=== PATIENT | male | born 1940 | race Caucasian/White ===

== ENCOUNTER 2016-11-19 12:30 | Inpatient (IN) | payer OTHER, BC ==
--- NOTE | 2016-11-19 12:57 | PDOC ---
History of Present Illness - General Chief Complaint: Pain Stated Complaint: ABD PAIN Time Seen by Provider: 11/19/16 12:56 History Source: Patient Exam Limitations: No Limitations - History of Present Illness Travel History: No Initial Comments: 11/19/16 13:37 Patient is a 76 year old male with PMH of SVT s/p ablation, COPD, Emphysema, Hypothyroidism, HLD who presents to ED with left-sided abdominal pain since Sunday. Patient states he has had a cold for 1 week and has been coughing yellow sputum. He was started on Levaquin by his PCP but switched to Amoxicillin when he started to have abdominal pain after starting the levaquin. He states the pain was originally diffuse and intermittent but has radiated to his LLQ and is now constant and more severe. He has a history of an inguinal hernia containing portions of colon w/o signs of bowel obstruction (last imaging June 2016). He reports complete loss of appetite and no bowel movements since Sunday. Denies fever, chills, nausea, vomiting. Past History - Travel Traveled outside of the country in the last 30 days: No Close contact w/someone who was outside of country & ill: No - Past Medical History Allergies/Adverse Reactions: Allergies Allergy/AdvReac Type Severity Reaction Status Date / Time No Known Allergies Allergy Verified 11/19/16 12:42 Home Medications: Ambulatory Orders Levothyroxine [Synthroid -] 25 mcg PO DAILY 02/14/15 Simvastatin [Zocor -] 40 mg PO HS 02/14/15 Tiotropium [place] [Spiriva] 1 inh PO DAILY 02/14/15 Anemia: No Asthma: No Cancer: No Cardiac Disorders: No CVA: No COPD: Yes (COPD) CHF: No Dementia: No Diabetes: No GI Disorders: No Disorders: No HTN: No Hypercholesterolemia: Yes Liver Disease: No Suicide Attempt (Hx): No Seizures: No Thyroid Disease: Yes (HYPO) - Surgical History Abdominal Surgery: No Appendectomy: No Cardiac Surgery: Yes (SVT Ablation) Cholecystectomy: No Lung Surgery: No Neurologic Surgery: No Orthopedic Surgery: No - Psycho/Social/Smoking Cessation Hx Anxiety: No Suicidal Ideation: No Smoking Status: No Smoking History: Former smoker Years of Tobacco Use: 40 Have you smoked in the past 12 months: No Number of Cigarettes Smoked Daily: 20 If you are a former smoker, when did you quit?: 15 YRS AGO Hx Alcohol Use: No Drug/Substance Use Hx: No Substance Use Type: None Hx Substance Use Treatment: No Abd/GI Specific PMHX - Complaint Specific PMHX Other History: inguinal hernia Review of Systems - Review of Systems Able to Perform ROS?: Yes Is the patient limited Bahamian proficient: No Constitutional: Yes: Loss of Appetite, Weakness Respiratory: Yes: Cough, Productive cough ABD/GI: Yes: Constipated, Poor Appetite, Poor Fluid Intake : Yes: Testicular Swelling *Physical Exam - Vital Signs Last Vital Signs Temp Pulse Resp BP Pulse Ox 97.6 F 100 H 20 128/92 95 11/19/16 12:40 11/19/16 12:40 11/19/16 12:40 11/19/16 12:40 11/19/16 12:40 - Physical Exam General Appearance: Yes: Appropriately Dressed, Apparent Distress HEENT: positive: EOMI, EMILIANA, Normal ENT Inspection Neck: positive: Trachea midline, Normal Thyroid Respiratory/Chest: positive: Lungs Clear, Normal Breath Sounds Cardiovascular: positive: Regular Rhythm, Regular Rate Gastrointestinal/Abdominal: positive: Tender, Decreased BS, Distended, Hernia ( inguinal hernia on left side, extremely tender to palpation) Male Genitalia: positive: testicular tenderness, testicular mass (inguinal hernia ) Musculoskeletal: positive: Normal Inspection Extremity: positive: Normal Inspection, Normal Range of Motion Neurologic: 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 Patient sent for Abdomen & Pelvis CT. Also ordered CBC, CMP, Lactic acid, Blood Cx, UA, CXR. Consulted with surgery & will keep in contact once imaging report returns. 11/19/16 15:46 CT Scan Abdomen/Pelvis: Left inguinal hernia containing a dilated small bowel loop with resultant proximal small bowel obstruction. There is also associated fluid-filled gastric distention. Moderate fluid distended hiatal hernia. The left inguinal hernia also contains a small segment of the nondilated sigmoid colon. Sigmoid diverticulosis without evidence of acute diverticulitis. Advanced emphysema is seen involving the partially imaged lower lung bernardo. CXR: No acute pathology Elevated lactic acid noted, 2.5. Patient given another 500ml bolus NS. Repeat lactic acid sent. Case discussed with Surgery and they will see him later this evening to try and reduce the hernia. If unable, likely surgery planned for this evening. Also discussed with hospitalist Dr Nesbitt who will admit to med-surg. Patient made NPO and NGT placed. *DC/Admit/Observation/Transfer Diagnosis at time of Disposition: Small bowel obstruction - Discharge Dispostion Condition at time of disposition: Improved - Referrals Referrals: Christiano Herrera MD [Primary Care Provider] -
[2016-11-19] MEDS ORDERED: SODIUM CHLORIDE 500 ML IV STA ×2 (13:27→15:16)
--- NOTE | 2016-11-19 13:41 | PDOC ---
Attending Attestation - Resident Resident Name: Phong Suresh - ED Attending Attestation I have performed the following: I have examined & evaluated the patient, The case was reviewed & discussed with the resident, I agree w/resident's findings & plan - HPI HPI: 11/19/16 13:38 76-year-old male with past medical history of COPD, and a prior SVT ablation He has had a left inguinal hernia, for quite some time, but it was just being followed, and was not causing him any difficulties He states that he has had a URI and a cough for one week, with cough productive of yellow sputum He's been coughing a lot, and on Sunday, his primary care physician started him on Levaquin He started getting abdominal pain, and his primary care physician switched him to Augmentin He states his cough and yellow sputum are decreasing since the antibiotic, however He is having left lower quadrant abdominal pain radiating into his hernia, and his last bowel movement was Sunday He is unable to eat or drink and feels nauseated He has had no vomiting, and no dysuria He denies any chills, but he does admit to sweats - Physicial Exam PE: 11/19/16 13:38 Physical exam Last Vital Signs Temp Pulse Resp BP Pulse Ox 97.6 F 100 H 20 128/92 95 11/19/16 12:40 11/19/16 12:40 11/19/16 12:40 11/19/16 12:40 11/19/16 12:40 Physical exam significant for Dry mucous membranes Lungs-scattered coarse rhonchi in all lung bernardo move with cough There is hyperactive bowel sounds, with a soft abdomen There is an incarcerated left inguinal hernia - Medical Decision Making 11/19/16 13:45 Most likely scenario is patient has had a URI/bronchitis/respiratory issue and has been coughing a lot, and he has a pre-existing left inguinal hernia Most likely from the increase intra-abdominal pressure from the coughing, his hernia increased and he now has an incarcerated left inguinal hernia Will hydrate, check for pneumonia, CAT scan, will need surgical consult EKG Normal sinus rhythm 79, normal axis Normal AV and IV conduction time Normal QTC There is [address]-T waves 11/19/16 15:18 Laboratory Results - last 24 hr 11/19/16 11/19/16 11/19/16 13:44 13:44 13:44 WBC 11.4 H RBC 4.40 Hgb 13.8 D Hct 41.4 MCV 94.0 MCHC 33.4 RDW 13.6 Plt Count 355 D MPV 7.6 Neutrophils % 80.3 D Lymphocytes % 12.7 D Monocytes % 6.4 Eosinophils % 0.2 D Basophils % 0.4 INR PTT (Actin FS) Sodium 135 L Potassium 4.3 Chloride 93 L D Carbon Dioxide 29 Anion Gap 13 BUN 26 H D Creatinine 1.0 Creat Clearance w eGFR > 60 Random Glucose 127 H D Lactic Acid 2.497 H* Calcium 9.8 Total Bilirubin 0.5 D AST 16 ALT 18 Alkaline Phosphatase 76 Total Protein 8.3 H Albumin 3.6 11/19/16 13:44 WBC RBC Hgb Hct MCV MCHC RDW Plt Count MPV Neutrophils % Lymphocytes % Monocytes % Eosinophils % Basophils % INR 1.16 H PTT (Actin FS) 25.3 L Sodium Potassium Chloride Carbon Dioxide Anion Gap BUN Creatinine Creat Clearance w eGFR Random Glucose Lactic Acid Calcium Total Bilirubin AST ALT Alkaline Phosphatase Total Protein Albumin CT scan of the abdomen and pelvis Left inguinal hernia containing a dilated small bowel loop with resultant proximal small bowel obstruction. There is also associated fluid-filled gastric distention. Moderate fluid distended hiatal hernia. The left inguinal hernia also contains a small segment of the nondilated sigmoid colon Sigmoid diverticulosis without evidence of acute diverticulitis Advanced emphysema is seen in the lungs Chest x-ray No acute infiltrate is seen Unchanged from prior chest x-ray of 02/14/15 11/19/16 15:35 Case d/w Dr Christianson - surg - will see pt in consultation - requests NPO and NGT - ordered Case d/w hospitalist - will admit 11/19/16 16:24 Dr Christianson called - coming to see pt. - requests 2 mg versed and 2 mg morphine at bedside to try to reduce hernia at bedside ordered to hold at [facility] pending Dr Christianson 11/19/16 16:38 Dr Christianson at [facility] Hernia reduced at bedside by Dr Christianson - see consult will bedrest and place in observation Repeat lactic negative (1.2) after IV hydration Impression - incarcerated L inguinal hernia - reduced at bedside by Dr Christianson
[2016-11-19 14:06] LABS: BASOPHIL 0.4 % (0-2.0); EOSINOPHIL 0.2 % (0-4.5); MCH 31.4 pg (25.7-33.7); MCHC 33.4 g/dl (32.0-35.9); MEAN PLT VOLUME 7.6 fl (7.5-11.1); NEUTROPHILS 80.3 % (42.8-82.8); PLATELET COUNT 355 K/MM3 (134-434); RDW 13.6 % (11.9-15.9); WHITE BLOOD COUNT 11.4 K/mm3 (4.0-10.0)
[2016-11-19 14:20] LABS: INR 1.16 (0.82-1.09); PROTHROMBIN TIME (PATIENT) 12.8 SEC (9.98-11.88)
[2016-11-19 14:22] LABS: ACTIVATED PTT 25.3 SECONDS (26.9-34.4)
[2016-11-19 14:25] LABS: ALBUMIN 3.6 g/dl (3.4-5.0); ANION GAP 13 (8-16); BILIRUBIN,TOTAL 0.5 mg/dL (0.2-1.0); CALCIUM 9.8 mg/dL (8.5-10.1); CO2 29 mmol/L (21-32); GLUCOSE,RANDOM 127 mg/dL (74-106); SGOT/AST 16 U/L (15-37); SGPT/ALT 18 U/L (12-78); TOT PROT 8.3 g/dl (6.4-8.2)
[2016-11-19 14:26] LABS: ALK PHOS 76 U/L (45-117)
[2016-11-19] MEDS ORDERED: morphine CARPU-JECT 2 MG/1 ML DISP.SYRIN IVPUSH ONE ×2 (15:56→16:23)
[2016-11-19] MEDS ORDERED: morphine CARPU-JECT 2 MG/1 ML DISP.SYRIN ONE ×2 (16:04→16:32)
[2016-11-19] MEDS ORDERED: PIPERACILLIN/TAZOB 3.375 GM/50 ML PRE-DOCKED IVPB STA (16:14)
[2016-11-19] MEDS ORDERED: MIDAZOLAM HCL 2 MG/2 ML SINGLE DOSE VIAL IVPUSH ONE (16:23)
[2016-11-19] MEDS ORDERED: MIDAZOLAM HCL 2 MG/2 ML SINGLE DOSE VIAL ONE (16:32)
[2016-11-19] MEDS ORDERED: PIPERACILLIN/TAZOB 3.375 GM 50 ML IVPB ONE (16:32)
--- NOTE | 2016-11-19 16:34 | PN ---
Teaching Attending Note Name of Resident: Zachary Castro ATTENDING PHYSICIAN STATEMENT I saw and evaluated the patient. I reviewed the resident's note and discussed the case with the resident. I agree with the resident's findings and plan as documented. SUBJECTIVE: C/o having severe pain on his left side. Stated that he had cold symptoms and with coughing his inguinal hernia got trapped ,he developed pain at his left inguinal hernia area that he came to ED for further treatment and evaluation, last BM was 5 days ago , urinating without any difficulty. OBJECTIVE: Vital Signs Temperature 97.6 F 11/19/16 12:40 Pulse Rate 100 H 11/19/16 12:40 Respiratory Rate 20 11/19/16 12:40 Blood Pressure 128/92 11/19/16 12:40 O2 Sat by Pulse Oximetry (%) 95 11/19/16 12:40 General Appearance: Yes: Appropriately Dressed, Apparent Distress HEENT: positive: EOMI, EMILIANA, Normal ENT Inspection Neck: positive: Trachea midline, Normal Thyroid Respiratory/Chest: positive: decreased BS at basis Cardiovascular: positive: Regular Rhythm, Regular Rate, S1S2 positive Gastrointestinal/Abdominal: positive: Tender, Decreased BS, Distended, Hernia ( inguinal hernia on left side, extremely tender to palpation) Male Genitalia: positive: testicular tenderness, left inguinal hernia incarceration due to inguinal hernia Musculoskeletal: positive: Normal Inspection Extremity: positive: Normal Inspection, Normal Range of Motion 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: 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: 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, Fully Oriented, Alert, Normal Mood/ Affect, Normal Response, Motor Strength 5/5 CBCD WBC 11.4 K/mm3 (4.0-10.0) H 11/19/16 13:44 RBC 4.40 M/mm3 (4.00-5.60) 11/19/16 13:44 Hgb 13.8 GM/dL (11.7-16.9) D 11/19/16 13:44 Hct 41.4 % (35.4-49) 11/19/16 13:44 MCV 94.0 fl (80-96) 11/19/16 13:44 MCHC 33.4 g/dl (32.0-35.9) 11/19/16 13:44 RDW 13.6 % (11.9-15.9) 11/19/16 13:44 Plt Count 355 K/MM3 (134-434) D 11/19/16 13:44 MPV 7.6 fl (7.5-11.1) 11/19/16 13:44 CMP Sodium 135 mmol/L (136-145) L 11/19/16 13:44 Potassium 4.3 mmol/L (3.5-5.1) 11/19/16 13:44 Chloride 93 mmol/L (98-107) L D 11/19/16 13:44 Carbon Dioxide 29 mmol/L (21-32) 11/19/16 13:44 Anion Gap 13 (8-16) 11/19/16 13:44 BUN 26 mg/dL (7-18) H D 11/19/16 13:44 Creatinine 1.0 mg/dL (0.7-1.3) 11/19/16 13:44 Creat Clearance w eGFR > 60 (>60) 11/19/16 13:44 Random Glucose 127 mg/dL (74-106) H D 11/19/16 13:44 Calcium 9.8 mg/dL (8.5-10.1) 11/19/16 13:44 Total Bilirubin 0.5 mg/dL (0.2-1.0) D 11/19/16 13:44 AST 16 U/L (15-37) 11/19/16 13:44 ALT 18 U/L (12-78) 11/19/16 13:44 Alkaline Phosphatase 76 U/L (45-117) 11/19/16 13:44 Total Protein 8.3 g/dl (6.4-8.2) H 11/19/16 13:44 Albumin 3.6 g/dl (3.4-5.0) 11/19/16 13:44 Medication Instructions Recorded Levothyroxine [Synthroid -] 25 mcg PO DAILY 02/14/15 Simvastatin [Zocor -] 40 mg PO HS 02/14/15 Tiotropium [place] [Spiriva] 1 inh PO DAILY 02/14/15 ASSESSMENT AND PLAN: # Acute Hernial incarceration ; surgical consult, reduced the mass, observation for now, follow with upon discharge # Hx of COPD: continue Spiriva, duoneb prn for wheezing. DVT px: SCDs
--- NOTE | 2016-11-19 17:06 | HP ---
CHIEF COMPLAINT: Inguinal hernia pain PCP: HISTORY OF PRESENT ILLNESS: 76 y/o M with sig PMH of SVT s/p ablation, COPD, Emphysema, Hypothyroidism, HLD presents with LLQ abdominal pain since Sunday. He had a URI which was being treated at first with levaquin by PCP then changed to amoxicillin due to abdominal pain. He had cough at the time and feels as though the cough may have aggravated an existing inguinal hernia (found when imaged in June 2016). He has not eaten in 3-4 days, has difficulty urinating at times, is passing gas, but has not had a BM since Sunday. He denies N/V/F/C, CP, SOB. ER course was notable for: (1) CT abd, CXR (2) Manual reduction by Dr. Christianson (3) Recent Travel: denies PAST MEDICAL HISTORY: SVT s/p ablation, COPD, Emphysema, Hypothyroidism, HLD, inguinal hernia PAST SURGICAL HISTORY: Social History: Smoking: Quit 15-16 years ago Alcohol: denies Family History: non-contributory Allergies No Known Allergies Allergy (Verified 11/19/16 12:42) HOME MEDICATIONS: Medication Instructions Recorded Levothyroxine [Synthroid -] 25 mcg PO DAILY 02/14/15 Simvastatin [Zocor -] 40 mg PO HS 02/14/15 Tiotropium [place] [Spiriva] 1 inh PO DAILY 02/14/15 REVIEW OF SYSTEMS CONSTITUTIONAL: Absent: fever, chills, diaphoresis, generalized weakness, malaise, loss of appetite, weight change HEENT: Absent: rhinorrhea, nasal congestion, throat pain, throat swelling, difficulty swallowing, mouth swelling, ear pain, eye pain, visual changes CARDIOVASCULAR: Absent: chest pain, syncope, palpitations, irregular heart rate, lightheadedness , peripheral edema RESPIRATORY: Absent: cough, shortness of breath, dyspnea with exertion, orthopnea, wheezing, stridor, hemoptysis GASTROINTESTINAL: Absent: abdominal pain, abdominal distension, nausea, vomiting, diarrhea, constipation, melena, hematochezia GENITOURINARY: Absent: dysuria, frequency, urgency, hesitancy, hematuria, flank pain, genital pain MUSCULOSKELETAL: Absent: myalgia, arthralgia, joint swelling, back pain, neck pain SKIN: Absent: rash, itching, pallor HEMATOLOGIC/IMMUNOLOGIC: Absent: easy bleeding, easy bruising, lymphadenopathy, frequent infections ENDOCRINE: Absent: unexplained weight gain, unexplained weight loss, heat intolerance, cold intolerance NEUROLOGIC: Absent: headache, focal weakness or paresthesias, dizziness, unsteady gait, seizure, mental status changes, bladder or bowel incontinence PSYCHIATRIC: Absent: anxiety, depression, suicidal or homicidal ideation, hallucinations. PHYSICAL EXAMINATION Vital Signs - 24 hr 11/19/16 12:40 Temperature 97.6 F Pulse Rate 100 H Respiratory 20 Rate Blood Pressure 128/92 O2 Sat by Pulse 95 Oximetry (%) GENERAL: Awake, alert, and fully oriented, in no acute distress. HEAD: Normal with no signs of trauma. EYES: Pupils equal, round and reactive to light, extraocular movements intact, sclera anicteric, conjunctiva clear. No lid lag. EARS, NOSE, THROAT: Ears normal, nares patent, oropharynx clear without exudates. Moist mucous membranes. NECK: Normal range of motion, supple without lymphadenopathy, JVD, or masses. LUNGS: Breath sounds equal, clear to auscultation bilaterally. No wheezes, and no crackles. No accessory muscle use. HEART: Regular rate and rhythm, normal S1 and S2 without murmur, rub or gallop. ABDOMEN: Soft, nontender, not distended, normoactive bowel sounds, no guarding, no rebound, no masses. No hepatomegaly or splenomegaly. MUSCULOSKELETAL: Normal range of motion at all joints. No bony deformities or tenderness. No CVA tenderness. UPPER EXTREMITIES: 2+ pulses, warm, well-perfused. No cyanosis. No clubbing. Cap refill <2 seconds. No peripheral edema. LOWER EXTREMITIES: 2+ pulses, warm, well-perfused. No calf tenderness. No peripheral edema. NEUROLOGICAL: Cranial nerves II-XII intact. Normal speech. Normal gait. PSYCHIATRIC: Cooperative. Good eye contact. Appropriate mood and affect. SKIN: Warm, dry, normal turgor, no rashes or lesions noted. Laboratory Results - last 24 hr 11/19/16 11/19/16 11/19/16 13:44 13:44 13:44 WBC 11.4 H RBC 4.40 Hgb 13.8 D Hct 41.4 MCV 94.0 MCHC 33.4 RDW 13.6 Plt Count 355 D MPV 7.6 Neutrophils % 80.3 D Lymphocytes % 12.7 D Monocytes % 6.4 Eosinophils % 0.2 D Basophils % 0.4 INR PTT (Actin FS) Sodium 135 L Potassium 4.3 Chloride 93 L D Carbon Dioxide 29 Anion Gap 13 BUN 26 H D Creatinine 1.0 Creat Clearance w eGFR > 60 Random Glucose 127 H D Lactic Acid 2.497 H* Calcium 9.8 Total Bilirubin 0.5 D AST 16 ALT 18 Alkaline Phosphatase 76 Total Protein 8.3 H Albumin 3.6 Blood Type Antibody Screen 11/19/16 11/19/16 11/19/16 13:44 13:44 15:30 WBC RBC Hgb Hct MCV MCHC RDW Plt Count MPV Neutrophils % Lymphocytes % Monocytes % Eosinophils % Basophils % INR 1.16 H PTT (Actin FS) 25.3 L Sodium Potassium Chloride Carbon Dioxide Anion Gap BUN Creatinine Creat Clearance w eGFR Random Glucose Lactic Acid Calcium Total Bilirubin AST ALT Alkaline Phosphatase Total Protein Albumin Blood Type B POSITIVE B POSITIVE Antibody Screen Negative Imaging CT abd/pelvis: Left inguinal hernia containing a dilated small bowel loop with resultant proximal small bowel obstruction. There is also associated fluid-filled gastric distention. Moderate fluid distended hiatal hernia. The left inguinal hernia also contains a small segment of the nondilated sigmoid colon. Sigmoid diverticulosis without evidence of acute diverticulitis. Advanced emphysema is seen involving the partially imaged lower lung bernardo. Microbiology 11/19/16 13:44 Nasopharyngeal Swab Influenza Types A,B Antigen (HANK) - Final 11/19/16 13:44 Nasopharyngeal Swab - Final Blood culture Pending ASSESSMENT/PLAN: 76 y/o M with sig PMH of SVT s/p ablation, COPD, Emphysema, Hypothyroidism, HLD presents with LLQ abdominal pain since Sunday. Admitted in obs for incarcerated inguinal hernia. Successful manual decompression done by Dr. Christianson in ER. 1. Incarcerated inguinal hernia w/ SBO -Manual decompression successful by Dr. Christianson -will keep NPO for now -if he begins to pass gas and has BM can start eating at home. -will admit under obs and monitor hernia -can follow up with Dr. Christianson as outpatient -zosyn 3.375 g IV Once -f/u BCx 2. COPD -c/w Spiriva 1 inh qd -Albuterol neb PRN Q4H 3. HLD -lipitor 20 mg PO qhs 4. Hypothyroidism -synthroid 25mcg PO qd 5. FEN -Maintenance fluids NS @ 100ml/hr -NPO for now. -if he begins to pass gas and has BM can start eating at home. 6. Dispo: -Will monitor his hernia. If stable can go home and f/u with Dr. Christianson as out patient for further surgical management. Problem List - Problem (1) COPD (chronic obstructive pulmonary disease) Code(s): J44.9 - CHRONIC OBSTRUCTIVE PULMONARY DISEASE, UNSPECIFIED (2) Small bowel obstruction Code(s): K56.69 - OTHER INTESTINAL OBSTRUCTION (3) Inguinal hernia of left side with obstruction Code(s): K40.30 - UNIL INGUINAL HERNIA, W OBST, W/O GANGR, NOT SPCF RECUR Visit type - Emergency Visit Emergency Visit: Yes Care time: The patient presented to the Emergency Department on the above date and was hospitalized for further evaluation of their emergent condition. - New Patient This patient is new to me today: Yes Date on this admission: 11/19/16 - Critical Care Critical Care patient: No
[2016-11-19] MEDS ORDERED: ALBUTEROL SO4 0.083% IH SOL 2.5 MG/3 ML VIAL.NEB. NEB PRN (17:07)
[2016-11-19] MEDS: SODIUM CHLORIDE 1,000 ML IV SCH (17:32)
--- NOTE | 2016-11-19 17:38 | CONS ---
DATE OF CONSULTATION: 11/19/2016 REFERRING PHYSICIAN: Dr. Phong Suresh. REASON FOR REFERRAL: Small-bowel obstruction, left inguinal hernia. BRIEF HISTORY: This is a 76-year-old gentleman, in his usual state of health, who in the past week was starting to feel ill with progressive abdominal distention and constipation. He was mildly nauseous at home as well. Since he got worse, he presented to the emergency room. In the emergency room, he underwent a CAT scan of the abdomen and pelvis CT demonstrated findings consistent with an incarcerated left inguinal hernia and bowel obstruction secondary to the hernia. PAST MEDICAL HISTORY: Significant for coronary artery disease, emphysema, hypothyroidism, hyperlipidemia. PAST SURGICAL HISTORY: Patient is status post cardiac ablation. No abdominal surgeries. MEDICATIONS: Synthroid, Zocor, and Spiriva. ALLERGIES: None. PHYSICAL EXAMINATION: The abdomen is soft, mildly distended. There is an acutely incarcerated tender left inguinal hernia. This was manually reduced with moderate difficulty. IMPRESSION/PLAN: Small-bowel obstruction secondary to acutely incarcerated left inguinal hernia. This is a 76-year-old gentleman with a known chronic left inguinal hernia. Something happened over the past week and he had an acute component as well. The acute component caused a small-bowel obstruction radiographically. This left inguinal hernia at this time was reduced with moderate difficulty. Clinical exam today demonstrated no evidence of compromise rule out ischemic bowel. He has normal white count. He had no pain out of proportion and his abdominal examination was unremarkable. At this point I would recommend the patient see me in the office, undergo an elective scheduling and repair of his left inguinal hernia. Thank you for allowing me to participate in the care of your patient. I will be available on a p.r.n. basis. BONNY JONES M.D. RACHID/[id number] cc: Phong Suresh MD; Amarjit Steiner MD MTDD
[2016-11-19 18:10] LABS: URINE APPEARANCE CLEAR; URINE BILIRUBIN NEGATIVE (NEGATIVE); URINE BLOOD NEGATIVE (NEGATIVE); URINE COLOR YELLOW; URINE GLUCOSE (UA) NEGATIVE (NEGATIVE); URINE KETONE TRACE (NEGATIVE); URINE LEUK ESTERASE NEGATIVE (NEGATIVE); URINE NITRITE NEGATIVE (NEGATIVE); URINE PROTEIN NEGATIVE (NEGATIVE); URINE UROBILINOGEN NEGATIVE E.U./dl (0.2-1.0)
[2016-11-19 19:55] VITALS: BMI 22.3
[2016-11-19] MEDS: ACLIDINIUM BROMIDE 400 MCG/INH AERO.POWD IH SCH (21:09)
[2016-11-19] MEDS ORDERED: ATORVASTATIN CA 20 MG TABLET (FP) PO SCH (22:00)
[2016-11-19] MEDS ORDERED: PT OWN MED DRAWER 7, Y5N ONE (22:10)
[2016-11-20] MEDS: SODIUM CHLORIDE 1,000 ML IV SCH (00:10)
[2016-11-20] MEDS ORDERED: LEVOTHYROXINE NA 25 MCG TABLET (FP) PO SCH (07:00)
[2016-11-20 08:12] LABS: BASOPHIL 0.7 % (0-2.0); EOSINOPHIL 3.3 % (0-4.5); MCH 31.3 pg (25.7-33.7); MCHC 33.1 g/dl (32.0-35.9); MEAN CELL VOLUME 94.3 fl (80-96); NEUTROPHILS 69.4 % (42.8-82.8); PLATELET COUNT 289 K/MM3 (134-434); RDW 13.7 % (11.9-15.9); WHITE BLOOD COUNT 11.2 K/mm3 (4.0-10.0)
[2016-11-20 08:26] LABS: ALBUMIN 2.6 g/dl (3.4-5.0); ANION GAP 6 (8-16); CO2 25 mmol/L (21-32); CREATININE 0.8 mg/dL (0.7-1.3); GLUCOSE,RANDOM 87 mg/dL (74-106); SGOT/AST 19 U/L (15-37); SGPT/ALT 21 U/L (12-78)
[2016-11-20 08:27] LABS: ALK PHOS 56 U/L (45-117); BILIRUBIN,TOTAL 0.4 mg/dL (0.2-1.0); TOT PROT 5.9 g/dl (6.4-8.2)
[2016-11-20 09:16] VITALS: BP 136/77; PULSE 77; TEMP 97.9
--- NOTE | 2016-11-20 09:26 | EKG ---
Test Reason : Blood Pressure : / mmHG Vent. Rate : 079 BPM Atrial Rate : 079 BPM P-R Int : 150 ms QRS Dur : 080 ms QT Int : 386 ms P-R-T Axes : 072 029 044 degrees QTc Int : 442 ms SINUS RHYTHM WITH OCCASIONAL PREMATURE VENTRICULAR COMPLEXES OTHERWISE NORMAL ECG WHEN COMPARED WITH ECG OF 14-FEB-2015 11:45, T WAVE AMPLITUDE HAS DECREASED IN LATERAL LEADS Confirmed by SWAPNIL BEJARANO, TAMAR ([id number]) on 11/20/2016 9:26:14 AM Referred By: Confirmed By:TAMAR KRAFT MD
[2016-11-20] MEDS: ACLIDINIUM BROMIDE 400 MCG/INH AERO.POWD IH SCH (10:16)
--- NOTE | 2016-11-20 11:45 | DS ---
Physical Exam: SUBJECTIVE: Patient seen and examined. no longer has abdominal pain, states he had 3 BM since admission and passing flatus. denies CP, SOB, fever, chills, abdominal pain , N/V/C/D OBJECTIVE: Vital Signs Period Temp Pulse Resp BP Sys/Guillaume Pulse Ox Last 24 Hr 97.3 F-97.9 F 77-91 18-20 136-145/60-90 93-98 PHYSICAL EXAM GENERAL: The patient is awake, alert, and fully oriented, in no acute distress. HEAD: Normal with no signs of trauma. EYES: PERRL, extraocular movements intact, sclera anicteric, conjunctiva clear. ENT: Ears normal, nares patent, oropharynx clear without exudates, moist mucous membranes. NECK: Trachea midline, full range of motion, supple. LUNGS: Breath sounds equal, clear to auscultation bilaterally, no wheezes, no crackles, no accessory muscle use. HEART: Regular rate and rhythm, S1, S2 without murmur, rub or gallop. ABDOMEN: Soft, nontender, nondistended, normoactive bowel sounds, no guarding, no rebound, no hepatosplenomegaly, no masses. EXTREMITIES: 2+ pulses, warm, well-perfused, no edema. NEUROLOGICAL: Cranial nerves II through XII grossly intact. Normal speech, gait not observed. PSYCH: Normal mood, normal affect. SKIN: Warm, dry, normal turgor, no rashes or lesions noted. LABS Laboratory Results - last 24 hr 11/19/16 11/20/16 11/20/16 19:30 07:10 07:10 WBC 11.2 H RBC 3.61 L Hgb 11.3 L D Hct 34.0 L D MCV 94.3 MCHC 33.1 RDW 13.7 Plt Count 289 MPV 8.0 Neutrophils % 69.4 Lymphocytes % 18.1 D Monocytes % 8.5 Eosinophils % 3.3 D Basophils % 0.7 Sodium 136 Potassium 3.9 Chloride 105 D Carbon Dioxide 25 Anion Gap 6 L BUN 21 H Creatinine 0.8 Creat Clearance w eGFR > 60 Random Glucose 87 D Lactic Acid 1.256 Calcium 8.0 L Total Bilirubin 0.4 AST 19 ALT 21 Alkaline Phosphatase 56 D Total Protein 5.9 L D Albumin 2.6 L D HOSPITAL COURSE: Date of Admission:11/19/16 Date of Discharge: 11/20/16 ADmitting diagnosis: Incacerated inguinal hernia Pre hospital course 76 y/o M with sig PMH of SVT s/p ablation, COPD, Emphysema, Hypothyroidism, HLD presents with LLQ abdominal pain since Sunday. He had a URI which was being treated at first with levaquin by PCP then changed to amoxicillin due to abdominal pain. He had cough at the time and feels as though the cough may have aggravated an existing inguinal hernia (found when imaged in June 2016). He has not eaten in 3-4 days, has difficulty urinating at times, is passing gas, but has not had a BM since Sunday. He denies N/V/F/C, CP, SOB. Subsequent hospital course ADmitted to medicine. imaging studies showed incacerated Left inguinal hernia with sigmoid colon. given IVF and Zosyn, pain and nausea control. manual decompression by surgery with moderate difficulty. Monitored overnight with no resolution of symptoms. passed BM and had flatus. d/c home with follow up with surgeon for elective surgery. d/w pt need for follow up and importance of this. verbalized understanding and agreed. Minutes to complete discharge: 40 Discharge Summary Reason For Visit: SMALL BOWEL OBSTRUCTION Current Active Problems Abnormal EKG (Acute) Abscess and cellulitis (Acute) COPD (chronic obstructive pulmonary disease) (Acute) Dizziness (Acute) Hypertension (Acute) Inguinal hernia of left side with obstruction (Acute) PVC (premature ventricular contraction) (Acute) SVT (supraventricular tachycardia) (Acute) Small bowel obstruction (Acute) Syncope (Acute) - Instructions Diet, Activity, Other Instructions: Follow instruction given to you by the surgeon. it is important that you follow up in his office this week Follow up with your primary care doctor this week Return to the ER if your symptoms worsen. Referrals: Christiano Herrera MD [Primary Care Provider] - Leonard Christianson MD [Staff Physician] - Disposition: HOME - Home Medications Comprehensive Discharge Medication List: Ambulatory Orders Levothyroxine [Synthroid -] 25 mcg PO DAILY 02/14/15 Simvastatin [Zocor -] 40 mg PO HS 02/14/15 Tiotropium [place] [Spiriva] 1 inh PO DAILY 02/14/15 This patient is new to me today: Yes Date on this admission: 11/20/16 Emergency Visit: Yes ED Registration Date: 11/19/16 Care time: The patient presented to the Emergency Department on the above date and was hospitalized for further evaluation of their emergent condition. Critical Care patient: No - Discharge Referral Referred to [facility] No
== END 2016-11-20 12:00 | disposition home or self-care (01) | DRG 395 ==
LOC: JER 12:30 → JERBED 16:32 → J6S 19:34
PROVIDERS: ADMIT Internal Medicine; ATTEND Internal Medicine
DX: K40.30 Unilateral inguinal hernia, with obstruction, without gangrene, not specified as recurrent (principal); J44.9 Chronic obstructive pulmonary disease, unspecified; I10 Essential (primary) hypertension; E78.5 Hyperlipidemia, unspecified; Z87.891 Personal history of nicotine dependence; E03.9 Hypothyroidism, unspecified
CPT/HCPCS: 36415; 71010-TC; 74176-TC; 80053; 81003; 83605; 85025; 85610; 85730; 86850; 86900; 86901; 87040; 87086; 87804; 93005; 93010; 99285-25

== ENCOUNTER 2016-12-12 16:29 | Day surgery (SDC) | payer OTHER, BC ==
[2016-12-12] MEDS ORDERED: HYDROmorphone HCL CARPU-JECT 1 MG/1 ML DISP.SYRIN ONE (16:47)
[2016-12-12] MEDS ORDERED: ONDANSETRON 4 MG/2 ML VIAL ONE (16:47)
[2016-12-12] MEDS ORDERED: ONDANSETRON 4 MG/2 ML VIAL IVPUSH ONE (16:49)
--- NOTE | 2016-12-12 16:49 | PDOC ---
History of Present Illness <Susan Manjarrez - Last Filed: 12/12/16 17:32> <Brittanie Remy - Last Filed: 12/12/16 17:47> - General Chief Complaint: Pain, Acute Stated Complaint: HERNIA Time Seen by Provider: 12/12/16 16:40 Past History - Past Medical History Anemia: No Asthma: No Cancer: No Cardiac Disorders: No CVA: No COPD: Yes (COPD) CHF: No Dementia: No Diabetes: No GI Disorders: No Disorders: No HTN: No Hypercholesterolemia: Yes Liver Disease: No Suicide Attempt (Hx): No Seizures: No Thyroid Disease: Yes (HYPO) - Surgical History Abdominal Surgery: No Appendectomy: No Cardiac Surgery: Yes (SVT Ablation) Cholecystectomy: No Lung Surgery: No Neurologic Surgery: No Orthopedic Surgery: No - Psycho/Social/Smoking Cessation Hx Anxiety: No Suicidal Ideation: No Smoking Status: No Smoking History: Former smoker Years of Tobacco Use: 40 Have you smoked in the past 12 months: No Number of Cigarettes Smoked Daily: 20 If you are a former smoker, when did you quit?: 15 YRS AGO Information on smoking cessation initiated: No Hx Alcohol Use: No Drug/Substance Use Hx: No Substance Use Type: None Hx Substance Use Treatment: No <Susan Manjarrez - Last Filed: 12/12/16 17:32> <Brittanie Remy - Last Filed: 12/12/16 17:47> - Past Medical History Allergies/Adverse Reactions: Allergies Allergy/AdvReac Type Severity Reaction Status Date / Time No Known Allergies Allergy Verified 12/12/16 16:36 Home Medications: Ambulatory Orders Levothyroxine [Synthroid -] 25 mcg PO DAILY 02/14/15 Simvastatin [Zocor -] 40 mg PO HS 02/14/15 Tiotropium [place] [Spiriva] 1 inh PO DAILY 02/14/15 *Physical Exam - Vital Signs Last Vital Signs Temp Pulse Resp BP Pulse Ox 97.8 F 86 22 156/86 97 12/12/16 16:36 12/12/16 16:36 12/12/16 16:36 12/12/16 16:36 12/12/16 16:36 <Susan Manjarrez - Last Filed: 12/12/16 17:32> - Vital Signs Last Vital Signs Temp Pulse Resp BP Pulse Ox 97.8 F 86 22 156/86 97 12/12/16 16:36 12/12/16 16:36 12/12/16 16:36 12/12/16 16:36 12/12/16 16:36 <Brittanie Remy - Last Filed: 12/12/16 17:47> ED Treatment Course - LABORATORY CBC & Chemistry Diagram: 12/12/16 16:52 12/12/16 16:52 <Brittanie Remy - Last Filed: 12/12/16 17:47> Medical Decision Making - Critical Care Time Total Critical Care Time (minutes): 30 Critical Care Statement: The care of this patient involved high complexity decision making to prevent further life threatening deterioration of the patient 's condition and/or to evalute & treat vital organ system(s) failure or risk of failure. - Medical Decision Making 12/12/16 16:52 First call placed to Dr. Christianson at 16:52. Awaiting call back from customer service correspondence clerk staff member. Case discussed with Dr. Merritt at 16:58. Dr. Colin Merritt came to the ER for a consult, reduced the left inguinal hernia and will be taking him to the OR in the morning. <Brittanie Remy - Last Filed: 12/12/16 17:47> *DC/Admit/Observation/Transfer <Susan Manjarrez - Last Filed: 12/12/16 17:32> - Attestations Scribe Attestion: 12/12/16 16:58 Documentation prepared by Brittanie Remy, acting as medical delivery technician for Susan Manjarrez MD. <Brittanie Remy - Last Filed: 12/12/16 17:47> Diagnosis at time of Disposition: Inguinal hernia of left side with obstruction - Referrals Referrals: Christiano Herrera MD [Primary Care Provider] -
[2016-12-12] MEDS ORDERED: HYDROmorphone HCL CARPU-JECT 1 MG/1 ML DISP.SYRIN IVPUSH ONE (16:50)
[2016-12-12] MEDS ORDERED: SODIUM CHLORIDE 250 ML IV STA (16:51)
--- NOTE | 2016-12-12 16:56 | PDOC ---
History of Present Illness <Susan Manjarrez - Last Filed: 12/12/16 17:25> - General History Source: Patient Exam Limitations: No Limitations - History of Present Illness Initial Comments: 12/12/16 16:51 Patient is a 76 year old male with PMH of SVT s/p ablation, COPD, Emphysema, Hypothyroidism, HLD who presents to ED with left-sided abdominal pain since 3pm today. Patient was last seen in ED by me on November 19. Imaging showed left inguina hernia containing bowel contents. Hernia was manually reduced by Dr Leonard Christianson. Patient was admitted, and upon having bowel movements & passing flatus , was discharged with hernia repair scheduled for tomorrow, December 13. Today, while in the shower, patient bent over and felt a "popping sensation" in his left groin at the site of the hernia. Pain is constant, severe and located at left groin at site of inguinal hernia. Denies fever, chills, nausea, vomiting. No bowel movements or flatus today after re-injuring himself. <Phong Suresh - Last Filed: 12/12/16 17:33> - General Chief Complaint: Pain, Acute Stated Complaint: HERNIA Time Seen by Provider: 12/12/16 16:40 Past History <Susan Manjarrez - Last Filed: 12/12/16 17:25> - Travel Traveled outside of the country in the last 30 days: No Close contact w/someone who was outside of country & ill: No - Past Medical History Anemia: No Asthma: No Cancer: No Cardiac Disorders: No CVA: No COPD: Yes (COPD) CHF: No Dementia: No Diabetes: No GI Disorders: No Disorders: No HTN: No Hypercholesterolemia: Yes Liver Disease: No Suicide Attempt (Hx): No Seizures: No Thyroid Disease: Yes (HYPO) - Surgical History Abdominal Surgery: No Appendectomy: No Cardiac Surgery: Yes (SVT Ablation) Cholecystectomy: No Lung Surgery: No Neurologic Surgery: No Orthopedic Surgery: No - Psycho/Social/Smoking Cessation Hx Anxiety: No Suicidal Ideation: No Smoking Status: No Smoking History: Former smoker Years of Tobacco Use: 40 Have you smoked in the past 12 months: No Number of Cigarettes Smoked Daily: 20 If you are a former smoker, when did you quit?: 15 YRS AGO Information on smoking cessation initiated: No Hx Alcohol Use: No Drug/Substance Use Hx: No Substance Use Type: None Hx Substance Use Treatment: No <Phong Suresh - Last Filed: 12/12/16 17:33> - Past Medical History Allergies/Adverse Reactions: Allergies Allergy/AdvReac Type Severity Reaction Status Date / Time No Known Allergies Allergy Verified 12/12/16 16:36 Home Medications: Ambulatory Orders Levothyroxine [Synthroid -] 25 mcg PO DAILY 02/14/15 Simvastatin [Zocor -] 40 mg PO HS 02/14/15 Tiotropium [place] [Spiriva] 1 inh PO DAILY 02/14/15 Review of Systems - Review of Systems Able to Perform ROS?: Yes Is the patient limited Haitian proficient: No : Yes: Other (left groin swelling, tender) All Other Systems: Reviewed and Negative <Phong Suresh - Last Filed: 12/12/16 17:33> *Physical Exam - Vital Signs Last Vital Signs Temp Pulse Resp BP Pulse Ox 97.8 F 86 22 156/86 97 12/12/16 16:36 12/12/16 16:36 12/12/16 16:36 12/12/16 16:36 12/12/16 16:36 <Susan Manjarrez - Last Filed: 12/12/16 17:25> - Vital Signs Last Vital Signs Temp Pulse Resp BP Pulse Ox 97.8 F 86 22 156/86 97 12/12/16 16:36 12/12/16 16:36 12/12/16 16:36 12/12/16 16:36 12/12/16 16:36 - Physical Exam General Appearance: Yes: Nourished, Appropriately Dressed, Apparent Distress HEENT: positive: EOMI, EMILIANA, Pharynx Normal Neck: positive: Trachea midline, Normal Thyroid, Supple Respiratory/Chest: positive: Lungs Clear, Normal Breath Sounds Cardiovascular: positive: Regular Rhythm, Regular Rate, S1, S2 Gastrointestinal/Abdominal: positive: Flat, Soft, Decreased BS Male Genitalia: positive: other (left inguinal hernia: swollen, severe TTP. not erythematous) Musculoskeletal: positive: Normal Inspection Extremity: positive: Normal Inspection, Normal Range of Motion Integumentary: positive: Normal Color, Dry, Warm Neurologic: positive: chainstitch pants outseamer II-XII NML intact, Alert, Normal Mood/Affect, Motor Strength 5/5 <Phong Suresh - Last Filed: 12/12/16 17:33> ED Treatment Course - LABORATORY CBC & Chemistry Diagram: 12/12/16 16:52 12/12/16 16:52 - ADDITIONAL ORDERS Additional order review: 12/12/16 16:52 RBC 4.20 MCV 94.8 MCHC 32.8 RDW 14.1 MPV 8.7 Neutrophils % 86.5 H D Lymphocytes % 7.8 L D Monocytes % 3.8 Eosinophils % 0.1 D Basophils % 1.8 - Medications Given in the ED: ED Medications Discontinued Medications Generic Name Dose Route Start Last Admin Trade Name Bradq PRN Reason Stop Dose Admin Hydromorphone HCl 1 mg 12/12/16 16:50 12/12/16 16:55 Dilaudid Injection - IVPUSH 12/12/16 16:51 1 mg ONCE ONE Administration Sodium Chloride 250 mls @ 500 mls/hr 12/12/16 16:51 12/12/16 17:11 Normal Saline - IV 12/12/16 17:20 500 mls/hr ASDIR STA Administration Ondansetron HCl 4 mg 12/12/16 16:49 12/12/16 16:55 Zofran Injection IVPUSH 12/12/16 16:50 4 mg ONCE ONE Administration <Susan Manjarrez - Last Filed: 12/12/16 17:25> - LABORATORY CBC & Chemistry Diagram: 12/12/16 16:52 12/12/16 16:52 <Phong Suresh - Last Filed: 12/12/16 17:33> Medical Decision Making - Medical Decision Making 12/12/16 16:59 Discussed case with surgery. Instructed to place patient in trendelenburg position & apply ice to site of herniation. Plan is for surgeon to manually reduce hernia in ED. Patient given 1mg Dilaudid for pain management. 12/12/16 17:33 Hernia reduced at bedside by surgery Dr Merritt. Patient will be kept overnight for observation until scheduled surgery tomorrow morning. NPO. <Phong Suresh - Last Filed: 12/12/16 17:33> *DC/Admit/Observation/Transfer - Discharge Dispostion Admit: Yes <Susan Manjarrez - Last Filed: 12/12/16 17:25> - Discharge Dispostion Admit: Yes <Phong Suresh - Last Filed: 12/12/16 17:33> Diagnosis at time of Disposition: Inguinal hernia of left side with obstruction - Referrals Referrals: Christiano Herrera MD [Primary Care Provider] -
[2016-12-12 16:58] LABS: BASOPHIL 1.8 % (0-2.0); EOSINOPHIL 0.1 % (0-4.5); MCH 31.1 pg (25.7-33.7); MCHC 32.8 g/dl (32.0-35.9); MEAN CELL VOLUME 94.8 fl (80-96); MEAN PLT VOLUME 8.7 fl (7.5-11.1); NEUTROPHILS 86.5 % (42.8-82.8); PLATELET COUNT 279 K/MM3 (134-434); RDW 14.1 % (11.9-15.9); WHITE BLOOD COUNT 13.7 K/mm3 (4.0-10.0)
--- NOTE | 2016-12-12 17:35 | PN ---
Progress Note (short form) - Note Progress Note: surgery pt seen and examined. 76m well known to service with previous incarcerated left inguinal hernia reduced emergenty by Dr. Christianson in the [facility] ER. Pt scheduled for elective surgery tomorrow but presents to [facility] er with acute incarceration of his LIH. Failed attempt at reduction by ED staff but able to be reduced with moderate difficulty by me. Plan- recommend admit for observation to ensure viablity of reduced bowel. keep npo. If well in AM would proceed with scheduled surgery. It is not safe to discharge now as hernia may reincarcerate and risk bowel compromise.
[2016-12-12 17:37] LABS: ALBUMIN 3.8 g/dl (3.4-5.0); ANION GAP 14 (8-16); BILIRUBIN,TOTAL 0.3 mg/dL (0.2-1.0); CALCIUM 9.5 mg/dL (8.5-10.1); CO2 25 mmol/L (21-32); CREATININE 1.1 mg/dL (0.7-1.3); GLUCOSE,RANDOM 152 mg/dL (74-106); SGPT/ALT 58 U/L (12-78); TOT PROT 8.2 g/dl (6.4-8.2)
[2016-12-12 17:38] LABS: ALK PHOS 81 U/L (45-117)
--- NOTE | 2016-12-12 17:40 | PDOC ---
Attending Attestation - Resident Resident Name: Phong Suresh - HPI HPI: 12/12/16 17:33 76 yo male p/w severe abd pain due to incarcerated left inguinal hernia. This occurred Nov 19 and was hospitalized for it. Heis scheduled for surgery this week. -very large hard mass of 10 cm x 20 cm in left groin -pt placed in trendelenburg/ice on area/ dilaudid given and IVF started -pt required surgery for reduction and Dr Colin Merritt came to ER and reduced marvin incarcerated inguinal hernia -pt ill be admitted to OBS med/surg and taken to OR in the morning plan- NPO after midnight -IVF D5 1/2 NS 125 ml/hour case discussed w Dr Guillory and admitted - Physicial Exam PE: 12/12/16 17:42 76 yo male in severe pain due to L incarcerated inguinal hernia - large hard mass and appearance of grossly swollen testicles abd- lower left tenderness cvr [id number] lungs cta b/l neuro axox3,ambulated to ER - Medical Decision Making 12/12/16 17:46 pt is now s/p reduction of left incarcerated inguinal hernia,feeling much better ,alert and conversant.Will be placed NPO after midnught and pre op labs and cxr were already done as outpatient
[2016-12-12 17:42] LABS: SGOT/AST 30 U/L (15-37)
[2016-12-12] MEDS ORDERED: DEXTROSE 5%-0.45% SALINE 1,000 ML IV SCH (17:45)
--- NOTE | 2016-12-12 18:46 | HP ---
PCP: Christiano Herrera CHIEF COMPLAINT: Abdominal and groin pain HISTORY OF PRESENT ILLNESS: This is a 76-year-old man who comes to the ER today complaining of LLQ and left groin pain. He has a history of a left inguinal hernia which had been manually reduced on 11/19. He was scheduled for hernia repair tomorrow. Today at around 3pm, he had sudden onset of severe pain in the LLQ of his abdomen and left groin. He noted the hernia was larger. He denies fever, chills, nausea, vomiting. He has been passing flatus and moving his bowels. In the ER, he has been seen by surgery and the incarcerated left inguinal hernia was reduced with moderate difficulty. He says the pain is now much less severe. PAST MEDICAL HISTORY COPD Hypothyroidism Hyperlipidemia SVT, s/p ablation Left inguinal hernia PAST SURGICAL HISTORY None Allergies No Known Allergies Allergy (Verified 12/12/16 16:36) HOME MEDICATIONS 3 Medication Instructions Recorded Levothyroxine [Synthroid -] 25 mcg PO DAILY 02/14/15 Simvastatin [Zocor -] 40 mg PO HS 02/14/15 Tiotropium [place] [Spiriva] 1 inh PO DAILY 02/14/15 Social History: Smoking: Quit smoking 15 years ago Alcohol: None Drugs: None Recent Travel: No Family History: Non-contributory REVIEW OF SYSTEMS CONSTITUTIONAL: Absent: fever, chills, diaphoresis, generalized weakness, malaise, loss of appetite, weight change HEENT: Absent: rhinorrhea, nasal congestion, throat pain, throat swelling, difficulty swallowing, mouth swelling, ear pain, eye pain, visual changes CARDIOVASCULAR: Absent: chest pain, syncope, palpitations, lightheadedness, peripheral edema RESPIRATORY: Absent: cough, shortness of breath, dyspnea with exertion, orthopnea, wheezing, stridor, hemoptysis GASTROINTESTINAL: Present: LLQ and left groin pain. Absent: abdominal distension, nausea, vomiting, diarrhea, constipation, melena, hematochezia GENITOURINARY: Absent: dysuria, frequency, urgency, hesitancy, hematuria, flank pain MUSCULOSKELETAL: Absent: myalgia, arthralgia, joint swelling, back pain, neck pain SKIN: Absent: rash, itching, pallor HEMATOLOGIC/IMMUNOLOGIC: Absent: easy bleeding, easy bruising, lymphadenopathy, frequent infections ENDOCRINE: Absent: unexplained weight gain, unexplained weight loss, heat intolerance, cold intolerance NEUROLOGIC: Absent: headache, focal weakness, paresthesias, dizziness, unsteady gait, seizure, mental status changes, bladder or bowel incontinence PSYCHIATRIC: Absent: anxiety, depression, suicidal or homicidal ideation, hallucinations. PHYSICAL EXAMINATION Vital Signs Period Temp Pulse Resp BP Sys/Guillaume Pulse Ox Last 24 Hr 97.8 F 86-92 18-22 121-156/77-86 95-97 GENERAL: Awake, alert, and fully oriented, in no acute distress. HEAD: Normal with no signs of trauma. EYES: Pupils equal, round and reactive to light, extraocular movements intact, sclera anicteric, conjunctiva clear. No lid lag. EARS, NOSE, THROAT: Ears normal, nares patent, oropharynx clear without exudates. Moist mucous membranes. NECK: Normal range of motion, supple without lymphadenopathy, JVD, or masses. LUNGS: Breath sounds equal, clear to auscultation bilaterally. No wheezes, and no crackles. No accessory muscle use. HEART: Regular rate and rhythm, normal S1 and S2 without murmur, rub or gallop. ABDOMEN: Soft, nontender, not distended, normoactive bowel sounds, no guarding, no rebound. No hepatomegaly or splenomegaly. Mildly tender, reducible left inguinal hernia. MUSCULOSKELETAL: Normal range of motion at all joints. No bony deformities or tenderness. No CVA tenderness. UPPER EXTREMITIES: 2+ pulses, warm, well-perfused. No cyanosis. No clubbing. Cap refill <2 seconds. No peripheral edema. LOWER EXTREMITIES: 2+ pulses, warm, well-perfused. No calf tenderness. No peripheral edema. NEUROLOGICAL: Cranial nerves II-XII intact. Normal speech. Gait not observed. PSYCHIATRIC: Cooperative. Good eye contact. Appropriate mood and affect. SKIN: Warm, dry, normal turgor, no rashes or lesions noted. Laboratory Results - last 24 hr 12/12/16 12/12/16 16:52 16:52 WBC 13.7 H RBC 4.20 Hgb 13.1 D Hct 39.8 D MCV 94.8 MCHC 32.8 RDW 14.1 Plt Count 279 MPV 8.7 Neutrophils % 86.5 H D Lymphocytes % 7.8 L D Monocytes % 3.8 Eosinophils % 0.1 D Basophils % 1.8 Sodium 140 Potassium 4.5 Chloride 101 Carbon Dioxide 25 Anion Gap 14 BUN 21 H Creatinine 1.1 D Creat Clearance w eGFR > 60 Random Glucose 152 H D Calcium 9.5 Total Bilirubin 0.3 D AST 30 D ALT 58 D Alkaline Phosphatase 81 D Total Protein 8.2 D Albumin 3.8 D EKG (11/19): Sinus rhythm, rate 79, PVCs. Chest x-ray (11/19): Bilateral old rib trauma. No acute process. ASSESSMENT/PLAN: This is a 76-year-old man with a history of COPD, hypothyroidism, hyperlipidemia , SVT and ablation, left inguinal hernia who presented to the ER with LLQ abdominal and left groin pain. He was found to have an incarcerated hernia which has been manually reduced. He is being placed in observation now to monitor for re-incarceration with a plan for surgery tomorrow. 1. Incarcerated left inguinal hernia - s/p reduction by surgery - Place in observation - NPO - Plan for repair tomorrow 2. COPD - Stable - Continue Spiriva - Albuterol as needed 3. Hyperlipidemia - Continue Zocor 4. Hypothyroidism - Continue Synthroid 5. History of SVT and ablation Problem List - Problem (1) Incarcerated left inguinal hernia Code(s): K40.30 - UNIL INGUINAL HERNIA, W OBST, W/O GANGR, NOT SPCF RECUR Visit type - Emergency Visit Emergency Visit: Yes Care time: The patient presented to the Emergency Department on the above date and was hospitalized for further evaluation of their emergent condition. - New Patient This patient is new to me today: Yes Date on this admission: 12/12/16 - Critical Care Critical Care patient: No
[2016-12-12] MEDS ORDERED: ALBUTEROL SO4 0.083% IH SOL 2.5 MG/3 ML VIAL.NEB. NEB PRN (19:11)
[2016-12-12] MEDS ORDERED: ACETAMINOPHEN 325 MG TABLET (FP) PO PRN (19:11)
[2016-12-12] MEDS ORDERED: ONDANSETRON 4 MG/2 ML VIAL IVPB PRN (19:11)
[2016-12-12] MEDS ORDERED: SODIUM CHLORIDE 1,000 ML IV SCH (19:15)
[2016-12-12 19:54] VITALS: BMI 21.9
[2016-12-12] MEDS ORDERED: ACLIDINIUM BROMIDE 400 MCG/INH AERO.POWD IH SCH (22:00)
[2016-12-12] MEDS ORDERED: ATORVASTATIN CA 20 MG TABLET (FP) PO SCH (22:00)
[2016-12-12] MEDS ORDERED: PATIENT'S OWN MEDICATION (NON-FORMULARY) (Simvastatin 40 MG) PO SCH (22:00)
[2016-12-13] MEDS ORDERED: TAMSULOSIN HCL 0.4 MG CAP.ER.24H (FP) PO ONE ×2 (07:00→16:30)
[2016-12-13] MEDS ORDERED: CEFAZOLIN (PRE-DOCKED) 50 ML IVPB ONE (07:00)
[2016-12-13] MEDS ORDERED: LEVOTHYROXINE NA 25 MCG TABLET (FP) PO SCH (07:00)
[2016-12-13] MEDS ORDERED: LIDOCAINE HCL 2% (20ML MULTI-DOSE VIAL) NR ONE (07:13)
[2016-12-13] MEDS ORDERED: PROPOFOL 20 ML ONE (07:32)
[2016-12-13] MEDS ORDERED: ROCURONIUM BROMIDE 50 MG/5 ML VIAL ONE (07:32)
[2016-12-13] MEDS ORDERED: LIDOCAINE HCL/PF 2% SDV 5ML VIAL ONE (07:32)
[2016-12-13 07:44] LABS: BASOPHIL 0.3 % (0-2.0); EOSINOPHIL 0.4 % (0-4.5); MCH 31.5 pg (25.7-33.7); MCHC 32.8 g/dl (32.0-35.9); MEAN PLT VOLUME 8.1 fl (7.5-11.1); NEUTROPHILS 72.7 % (42.8-82.8); PLATELET COUNT 240 K/MM3 (134-434); RDW 14.6 % (11.9-15.9); WHITE BLOOD COUNT 10.5 K/mm3 (4.0-10.0)
--- NOTE | 2016-12-13 07:47 | PN ---
Physical Exam: SUBJECTIVE: Patient seen and examined OBJECTIVE: Vital Signs Period Temp Pulse Resp BP Sys/Guillaume Pulse Ox Last 24 Hr 97.5 F-98.4 F 71-92 18-20 118-144/71-86 95-100 GENERAL: The patient is awake, alert, and fully oriented, in no acute distress. HEAD: Normal with no signs of trauma. EYES: PERRL, extraocular movements intact, sclera anicteric, conjunctiva clear. No ptosis. ENT: Ears normal, nares patent, oropharynx clear without exudates, moist mucous membranes. NECK: Trachea midline, full range of motion, supple. LUNGS: Breath sounds equal, clear to auscultation bilaterally, no wheezes, no crackles, no accessory muscle use. HEART: Regular rate and rhythm, S1, S2 without murmur, rub or gallop. ABDOMEN: Soft, nontender, nondistended, normoactive bowel sounds, no guarding, no rebound, no hepatosplenomegaly, no masses. EXTREMITIES: 2+ pulses, warm, well-perfused, no edema. NEUROLOGICAL: Cranial nerves II through XII grossly intact. Normal speech, gait not observed. PSYCH: Normal mood, normal affect. SKIN: Warm, dry, normal turgor, no rashes or lesions noted Active Medications Generic Name Dose Route Start Last Admin Trade Name Freq PRN Reason Stop Dose Admin Acetaminophen 650 mg 12/12/16 19:11 Tylenol - PO Q4H PRN FEVER OR PAIN Aclidinium [place] 1 puff 12/12/16 22:00 Tudorza - IH BID HERIBERTO Albuterol Sulfate 1 amp 12/12/16 19:11 Ventolin 0.083% Nebulizer Soln - NEB Q4H PRN SHORT OF BREATH/WHEEZING Atorvastatin Calcium 20 mg 12/12/16 22:00 Lipitor - PO HS HERIBERTO Sodium Chloride 1,000 mls @ 83 mls/hr 12/12/16 19:15 Normal Saline - IV ASDIR HERIBERTO Levothyroxine Sodium 25 mcg 12/13/16 07:00 Synthroid - PO DAILY@0700 HERIBERTO Ondansetron HCl 4 mg 12/12/16 19:11 Zofran Injection IVPB Q6H PRN NAUSEA ASSESSMENT/PLAN:
[2016-12-13] MEDS ORDERED: ceFAZolin SODIUM 1 GM VIAL ONE (08:16)
[2016-12-13] MEDS ORDERED: ceFAZolin SODIUM 1 GM VIAL IVPB ONE (08:16)
[2016-12-13 08:19] LABS: CALCIUM 8.8 mg/dL (8.5-10.1); CREATININE 0.9 mg/dL (0.7-1.3)
[2016-12-13] MEDS ORDERED: NEOSTIGMINE METHYLSULFATE 0.5 MG/ML - 10 ML MDV ONE (08:53)
[2016-12-13] MEDS ORDERED: DEXAMETHASONE SOD PHOSPHATE 4 MG/1 ML VIAL ONE (08:55)
[2016-12-13] MEDS ORDERED: LABETALOL HCL 5 MG/1 ML (100MG/20 ML VIAL) ONE (09:10)
[2016-12-13] MEDS ORDERED: GLYCOPYRROLATE 0.2 MG/1 ML VIAL ONE ×2 (09:15→09:16)
[2016-12-13] MEDS ORDERED: oxyCODONE HCL 5 MG TABLET PO PRN ×3 (09:48→17:23)
[2016-12-13] MEDS ORDERED: morphine CARPU-JECT 4 MG/1 ML DISP.SYRIN IVPB PRN ×2 (09:48→17:22)
--- NOTE | 2016-12-13 09:56 | PN ---
Progress Note (short form) - Note Progress Note: surgery s/p laparoscopic b/l inguinal hernia repair. surgically stable for discharge later today if voiding, ambulating, and tolerating liquids. rx percocet sent to his pharmacy. f/u with Dr. Christianson in about 2 weeks. ok to shower. ok to drive. no lifting. [phone]
[2016-12-13] MEDS ORDERED: ONDANSETRON 4 MG/2 ML VIAL IVPB PRN ×3 (09:58→17:24)
[2016-12-13] MEDS ORDERED: ACETAMINOPHEN 325 MG TABLET (FP) PO PRN ×3 (09:58→17:23)
[2016-12-13] MEDS ORDERED: ALBUTEROL SO4 0.083% IH SOL 2.5 MG/3 ML VIAL.NEB. NEB PRN ×2 (09:58→17:23)
[2016-12-13] MEDS ORDERED: SODIUM CHLORIDE 1,000 ML IV SCH ×3 (09:58→17:30)
[2016-12-13] MEDS ORDERED: ACLIDINIUM BROMIDE 400 MCG/INH AERO.POWD IH SCH ×3 (10:00→22:00)
[2016-12-13] MEDS ORDERED: ENOXAPARIN NA (PORCINE) 40 MG/0.4 ML DISP.SYRIN SQ SCH (10:00)
[2016-12-13] MEDS ORDERED: PATIENT'S OWN MEDICATION (NON-FORMULARY) (Tiotropium Bromide [Spiriva] 1 INH) PO SCH (10:00)
[2016-12-13] MEDS ORDERED: LEVOTHYROXINE PO SCH (10:00)
--- NOTE | 2016-12-13 13:17 | DS ---
Physical Exam: SUBJECTIVE: Patient seen and examined Patient resting in bed NAD. s/p b/l lap inguinal hernia repair. afebrile and hemodynamically stable. Feels well. states he has minimal LLQ pain only when he coughs, not requiring analgestic medication. tolerated liquid diet without nausea or vomiting. No flatus or BM yet. Denies sob, h/a, chest pain, and pain or dysuria. OBJECTIVE: Vital Signs Period Temp Pulse Resp BP Sys/Guillaume Pulse Ox Last 24 Hr 97.4 F-98.4 F 71-92 16-22 109-172/64-100 91-100 PHYSICAL EXAM GENERAL: The patient is awake, alert, and fully oriented, in no acute distress. HEAD: Normal with no signs of trauma. EYES: PERRL, extraocular movements intact, sclera anicteric, conjunctiva clear. ENT: moist mucous membranes. NECK: supple. LUNGS: Breath sounds equal, clear to auscultation bilaterally HEART: Regular rate and rhythm, S1, S2 ABDOMEN: Soft, nontender, nondistended, globally reduced bowel sounds. 3 small LLQ incisions sealed with surgiglue. nonerythematous, nondraining. EXTREMITIES: 2+ pulses, warm, well-perfused, no edema. NEUROLOGICAL: Cranial nerves II through XII grossly intact. Normal speech, gait not observed. PSYCH: Normal mood, normal affect. SKIN: Warm, dry LABS Laboratory Results - last 24 hr 12/12/16 12/12/16 12/12/16 16:52 16:52 17:12 WBC 13.7 H RBC 4.20 Hgb 13.1 D Hct 39.8 D MCV 94.8 MCHC 32.8 RDW 14.1 Plt Count 279 MPV 8.7 Neutrophils % 86.5 H D Lymphocytes % 7.8 L D Monocytes % 3.8 Eosinophils % 0.1 D Basophils % 1.8 Sodium 140 Potassium 4.5 Chloride 101 Carbon Dioxide 25 Anion Gap 14 BUN 21 H Creatinine 1.1 D Creat Clearance w eGFR > 60 Random Glucose 152 H D Lactic Acid 3.268 H* Calcium 9.5 Total Bilirubin 0.3 D AST 30 D ALT 58 D Alkaline Phosphatase 81 D Total Protein 8.2 D Albumin 3.8 D 12/13/16 12/13/16 06:50 06:50 WBC 10.5 H RBC 3.82 L Hgb 12.0 Hct 36.6 MCV 96.0 MCHC 32.8 RDW 14.6 Plt Count 240 MPV 8.1 Neutrophils % 72.7 Lymphocytes % 20.4 D Monocytes % 6.2 Eosinophils % 0.4 D Basophils % 0.3 Sodium 139 Potassium 4.1 Chloride 103 Carbon Dioxide 27 Anion Gap 9 BUN 17 Creatinine 0.9 Creat Clearance w eGFR Random Glucose 83 D Lactic Acid Calcium 8.8 Total Bilirubin AST ALT Alkaline Phosphatase Total Protein Albumin HOSPITAL COURSE: Date of Admission:12/12/16 This is a 76-year-old man with no surgical history and PMH of COPD, hypothyroidism, HLD, SVT s/p ablation and L inguinal hernia, who comes to the ER today complaining of LLQ and left groin pain. He has a history of a left inguinal hernia which had been manually reduced on 11/19. He was scheduled for hernia repair tomorrow. Today at around 3pm, he had sudden onset of severe pain in the LLQ of his abdomen and left groin. He noted the hernia was larger. He denies fever, chills, nausea, vomiting. He has been passing flatus and moving his bowels. In the ER, he has been seen by surgery and the incarcerated left inguinal hernia was reduced with moderate difficulty. He says the pain is now much less severe. He was diagnosed with incarcerated left inquinal hernia. His lactic acid was 3.2. Hernia was reduced in ED and he felt major relief in pain. he was kept overnight and had an uncomplicated laparoscopic b/l hernia repair in the morning. He felt well after surgery, with minimal pain, tolerated liquids , urinated, ambulated and was sent home on POD0. He was asked to f/u with surgery. Date of Discharge: 12/13/16 Minutes to complete discharge: 30 (na) <YomairaColetteEstefania - Last Filed: 12/13/16 16:33> Physical Exam: pt was having difficulty urinating. bladder scan performed with over 900cc. RN was unsuccessful in placing mercedes. urology consulted and placed caduet with moderate difficulty. instructed to follow up with urology for mercedes removal and further workup. pt verbalized understanding and agreed with plan. pt felt comfortable leaving with mercedes in place with instructions on maintenance given by RN. Notified surgeon that pt will be leaving with mercedes in place. <JeannieosKerenLiliana - Last Filed: 12/15/16 17:05> Discharge Summary Reason For Visit: INGUINAL HERNIA OF LEFT SIDE W/OBSTRUCT Current Active Problems Incarcerated left inguinal hernia (Acute) COPD (chronic obstructive pulmonary disease) (Chronic) Hypertension (Chronic) Hypothyroid (Chronic) SVT (supraventricular tachycardia) (Chronic) - Home Medications Comprehensive Discharge Medication List: Ambulatory Orders Levothyroxine [Synthroid -] 25 mcg PO ACBK 02/14/15 Simvastatin [Zocor -] 40 mg PO HS 02/14/15 Tiotropium [place] [Spiriva] 1 inh IH DAILY 02/14/15 Oxycodone HCl/Acetaminophen [Percocet 5-325 mg Tablet] 1 tab PO Q4H PRN #42 tablet MDD 6 12/13/16 <Estefania Burnette - Last Filed: 12/13/16 16:33> Current Active Problems COPD (chronic obstructive pulmonary disease) (Chronic) Hypertension (Chronic) Hypothyroid (Chronic) SVT (supraventricular tachycardia) (Chronic) - Home Medications Comprehensive Discharge Medication List: Ambulatory Orders Levothyroxine [Synthroid -] 25 mcg PO ACBK 02/14/15 Simvastatin [Zocor -] 40 mg PO HS 02/14/15 Tiotropium [place] [Spiriva] 1 inh IH DAILY 02/14/15 Oxycodone HCl/Acetaminophen [Percocet 5-325 mg Tablet] 1 tab PO Q4H PRN #42 tablet MDD 6 12/13/16 Tamsulosin HCl 0.4 mg PO DAILY #30 cap.er.24h 12/13/16 <Liliana Garcia - Last Filed: 12/15/16 17:05> Condition: Good - Instructions Diet, Activity, Other Instructions: You had laparoscopic inguinal hernia repair on both sides. You will have percocet sent to your pharmacy that you can take for pain. Please follow up with Dr. Christianson in about 2 weeks. It is ok to shower and drive. Do not lift heavy objects for 1 month. Follow up with a urologist on Sunday for further evaluation and workup. Follow up with Dr. Patel on Sunday. Referrals: Christiano Herrera MD [Primary Care Provider] - 2 Weeks Misha Patel MD [Staff Physician] - (Urology- follow up on sunday) Leonard Christianson MD [Staff Physician] - 2 Weeks Disposition: HOME This patient is new to me today: Yes Date on this admission: 12/13/16 Emergency Visit: Yes Care time: The patient presented to the Emergency Department on the above date and was hospitalized for further evaluation of their emergent condition. Critical Care patient: No - Discharge Referral Referred to [facility] No <Estefania Burnette - Last Filed: 12/13/16 16:33>
--- NOTE | 2016-12-13 13:37 | EKG ---
Test Reason : Blood Pressure : / mmHG Vent. Rate : 077 BPM Atrial Rate : 077 BPM P-R Int : 158 ms QRS Dur : 078 ms QT Int : 384 ms P-R-T Axes : 084 035 027 degrees QTc Int : 434 ms NORMAL SINUS RHYTHM NORMAL ECG WHEN COMPARED WITH ECG OF 19-NOV-2016 13:32, PREMATURE VENTRICULAR COMPLEXES ARE NO LONGER PRESENT T WAVE AMPLITUDE HAS INCREASED IN ANTEROLATERAL LEADS Confirmed by NAN BEJARANO, LEX ([id number]) on 12/13/2016 1:37:12 PM Referred By: Confirmed By:LEX MONTANA MD
--- NOTE | 2016-12-13 17:05 | PN ---
Teaching Attending Note Name of Resident: Estefania Burnette ATTENDING PHYSICIAN STATEMENT I saw and evaluated the patient. I reviewed the resident's note and discussed the case with the resident. I agree with the resident's findings and plan as documented. SUBJECTIVE:evaluated after surgery. states he has minimal discomfort but well tolerated. tolerating liquid diet. has not urinated yet but has urge. denies CP , SOB,fever, chills, N/V/C/D OBJECTIVE: Last Vital Signs Temp Pulse Resp BP Pulse Ox 97.4 F L 80 20 110/64 98 12/13/16 14:24 12/13/16 14:24 12/13/16 14:24 12/13/16 14:24 12/13/16 11:00 General NAD ABdomen soft, mildly tender diffusely increased near surgical site. dressing c/d /i ASSESSMENT AND PLAN: 76yo M with PMH COPD, hypothyroid, SVT and dyslipidemia presented to the ER and was admitted for further evaluation 1. Incarcerated inguinal hernia- s/p laprascopic B/L hernia repair today. tolerating diet well. pain controlled with percocet. will need to f/u with surgery in 2 weeks 2. Urinary retention- bladder scan showed approx 900cc of urine. unable to pass mercedes by nursing staff. will call urology if able to place and to evaluate for further management. will likely require cystoscopy done nd further workup. start flomax 3. pt wants to go home today if possible. will have pt evaluated by urology to see if mercedes can be placed.
[2016-12-13 17:15] VITALS: BP 124/61; PULSE 75; TEMP 98.4
--- NOTE | 2016-12-13 18:56 | CON.GU ---
Consult Consult Specialty:: Referred by:: Pastora Reason for Consultation:: urinary retention - History of Present Illness Chief Complaint: unable to urinate History of Present Illness: 76 yo m s/p bilat laparoscopic inguinal hernia repair today who developed post op urinary retention and RNs were unable to insert mercedes and cons req. - History Source History Provided By: Patient, Medical Record - Past Medical History CREW [employer]AD: Yes: Syncope, Other (hx svt, s/p ablation 10 years ago [facility]). 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 History of Recent Travel: No Home Medications - Allergies Allergies/Adverse Reactions: Allergies Allergy/AdvReac Type Severity Reaction Status Date / Time No Known Allergies Allergy Verified 12/12/16 16:36 - Home Medications Home Medications: Ambulatory Orders Levothyroxine [Synthroid -] 25 mcg PO ACBK 02/14/15 Simvastatin [Zocor -] 40 mg PO HS 02/14/15 Tiotropium [place] [Spiriva] 1 inh IH DAILY 02/14/15 Oxycodone HCl/Acetaminophen [Percocet 5-325 mg Tablet] 1 tab PO Q4H PRN #42 tablet MDD 6 12/13/16 Family Disease History - Family Disease History Family Disease History: Other: Brother (cva, cirrhosis) Review of Systems - Review of Systems Genitourinary: reports: Burning, Frequency Physical Exam- Vital Signs: Vital Signs Temperature 98.4 F 12/13/16 17:13 Pulse Rate 75 12/13/16 17:13 Respiratory Rate 20 12/13/16 17:13 Blood Pressure 124/61 12/13/16 17:13 O2 Sat by Pulse Oximetry (%) 98 12/13/16 11:00 Renal/: Yes: Bladder Distention Labs: CBC, BMP 12/13/16 06:50 12/13/16 06:50 Assessment/Plan Imp: acute urinary retention, BPH, s/p lap BIH rep Rec: 18 fr coude cath inserted w difficulty after urethral dilation w drainage of > 1 liter clear yellow urine. Rx flomax .4 mg po qd, f/u in my office Sunday12/18/16 for TRUS, mercedes removal, uroflow, PVR, poss cystoscopy. He may need urolift.
[2016-12-13] MEDS ORDERED: ATORVASTATIN CA 20 MG TABLET (FP) PO SCH ×3 (22:00)
[2016-12-14] MEDS ORDERED: LEVOTHYROXINE NA 25 MCG TABLET (FP) PO SCH ×3 (07:00)
[2016-12-14] MEDS ORDERED: ENOXAPARIN NA (PORCINE) 40 MG/0.4 ML DISP.SYRIN SQ SCH ×2 (10:00)
--- NOTE | 2016-12-21 15:28 | OP ---
DATE OF OPERATION: 12/13/2016 PREOPERATIVE DIAGNOSIS: Acutely incarcerated left inguinal hernia, suspect right inguinal hernia. POSTOPERATIVE DIAGNOSIS: Incarcerated left inguinal hernia (indirect), right indirect inguinal hernia. PROCEDURE: Laparoscopic repair of incarcerated left inguinal hernia with mesh, laparoscopic repair of right inguinal hernia with mesh. SURGEON: Leonard Jones M.D. CORPORATE TRAVEL COUNSELOR: Colin Merritt D.O. ANESTHESIOLOGIST: Bandar Mayen M.D. (general) ESTIMATED BLOOD LOSS: Minimal. SPECIMEN: None. INDICATION FOR PROCEDURE: This is a 76-year-old male who I had seen several weeks ago with acutely incarcerated inguinal hernia causing a small bowel obstruction in the emergency room. He underwent reduction after great difficulty, subsequently has done well and was scheduled electively for a laparoscopic repair of incarcerated left inguinal hernia. He now presented to the emergency room last evening with a similar bout of acute incarceration on top of a chronically incarcerated left inguinal hernia. The acute component was reduced. He is now here for operative repair. DESCRIPTION OF PROCEDURE: Patient is identified, and appropriately positioned on operating room table. After placement of general anesthesia, prepped and draped in the usual sterile fashion with Chloraprep. An infraumbilical incision was made, deepened through the subcutaneous tissue. The fascia of the rectus muscle on the left identified, divided sharply, and the muscle split. Under direct vision a suprapubic port placed. Also under direct vision, a 5-mm right lower quadrant port placed. The following structures on the left side identified: pubic tubercle, Alfonso ligament, inferior epigastric vessels, spermatic cord, and lateral abdominal wall. During this dissection, he had no direct component. The direct floor is mildly attenuated. He had a large indirect inguinal hernia sac; this reduced back in the preperitoneal space with blunt and sharp dissection. The sac was clearly acutely incarcerated. There was an acute incarcerated component, and a chronic component. The chronic component was reduced with moderate difficulty. Once everything was reduced back in the preperitoneal space, a 4.5 x 6 piece of Versatex mesh was keyhole placed through the suprapubic port site. The mesh wrapped around the cord structure laterally to reconstruct the internal ring. Laterally, mesh anchored to the anterior abdominal wall and lateral abdominal wall. Medially, mesh anchored to anterior abdominal wall, pubic tubercle, and Alfonso ligament. Upon completion of left side, similar structure on the right side identified. On the right side he had an indirect inguinal hernia reduced back in the preperitoneal space. Another 4.5 x 6 piece of Versatex mesh was keyhole placed through the suprapubic port site. The mesh wrapped around the cord structure laterally to reconstruct the internal inguinal ring. The mesh was placed midline, anchored to the anterior abdominal wall pubic tubercle, and Alfonso ligament. The preperitoneal space, desufflated under direct vision. The operative field examined, noted to be hemostatic. The fascia at the suprapubic port site, and infraumbilical port site were approximated with interrupted 3-0 Vicryl suture. All skin closed with 4-0 subcuticular Biosyn followed by Dermabond. The anterior abdominal wall and lateral abdominal wall anchor placed . The anchoring system used was the [id number] deep purchase Absorbatack. At the conclusion of this case, sponge and instrument counts were correct. The brief operative note will be found handwritten on the preprinted form. [facility] will be cleared prior to giving any narcotics and will be done electronically. LEONARD JONES M.D. [id number] MTDD
== END 2016-12-13 21:15 | disposition home or self-care (01) ==
LOC: JER 16:29 → UNDOADMOB 17:31 → JERBED 17:31 → UNDOADMOB 18:16 → JASUSAT 18:16 → JERBED 19:42 → J8W 19:42 → JASUSAT 12-13 21:15
PROVIDERS: ATTEND Chiropractor
PROC: 0YUA4JZ Supplement Bilateral Inguinal Region with Synthetic Substitute, Percutaneous Endoscopic Approach (ICD-10-PCS; principal; 2016-12-12)
DX: K40.30 Unilateral inguinal hernia, with obstruction, without gangrene, not specified as recurrent (principal); K40.90 Unilateral inguinal hernia, without obstruction or gangrene, not specified as recurrent; R33.9 Retention of urine, unspecified
CPT/HCPCS: 36415; 80048; 80053; 83605; 85025; 93005; 93010; 94010; 94760; 99283-25

== ENCOUNTER 2018-08-27 13:59 | Inpatient (IN) | payer OTHER, BC ==
[2018-08-27 14:13] LABS: BASO % 0.6 % (0-2.0); EOS % 1.2 % (0-4.5); HEMOGLOBIN 12.6 GM/dL (11.7-16.9); LYMPH % 30.3 % (8-40); MCH 32.1 pg (25.7-33.7); MCHC 33.1 g/dl (32.0-35.9); MEAN CELL VOLUME 97.2 fl (80-96); MEAN PLT VOLUME 8.1 fl (7.5-11.1); NEUT % 60.9 % (42.8-82.8); PLATELET COUNT 242 K/MM3 (134-434); WHITE BLOOD COUNT 15.3 K/mm3 (4.0-10.0)
[2018-08-27] MEDS ORDERED: SODIUM CHLORIDE 1,000 ML IV SCH (14:15)
[2018-08-27 14:38] LABS: INR 1.05 (0.83-1.09); PROTHROMBIN TIME (PATIENT) 12.4 SEC (9.7-13.0)
[2018-08-27] MEDS ORDERED: ONDANSETRON 4 MG/2 ML VIAL IVPUSH ONE (14:42)
--- NOTE | 2018-08-27 14:42 | PDOC ---
History of Present Illness - General Chief Complaint: CVA/TIA Stated Complaint: CVA/TIA Time Seen by Provider: 08/27/18 14:14 History Source: EMS, Family Exam Limitations: Clinical Condition - History of Present Illness Initial Comments: 08/27/18 14:39 The patient is an 78M with a PMH of HLD and COPD who presents to the ER via EMS for AMS. The patient is not able to provide any history 2/2 disorientation. History is provided by his daughter who is at bedside and EMS. Per family, the patient was in his normal state of health around 1315/1330 today when he became unresponsive and found by his to have been slouched on the ground from his chair. His called his son and EMS. The son had apparently noted the patient to not have pulses and began CPR. Medics then arrived and brought the patient to our facility. tPA Exclusion Checklist 0-3hr - Time Elapsed Date last known well: 08/27/18 Time last known well: 13:15 Elaspsed time: 5 Day(s) and 18 Hour(s) and 3 Minutes - Thrombolytic Therapy Candidate Is the patient eligible for Thrombolytic Therapy?: No - Exclusion Criteria 0-3hr SBP greater than 185 or DBP greater than 110mmHg despite tx: No Recent IC/spinal surgery,head trauma or stroke w/in last 3mo: No Hx of previous IC hemorrhage, IC neoplasm, AVM or aneurysm: No Active internal bleeding: No Blding diathesis(low plt ct, inc PTT,INR>1.7 or use of NOAC): No Symptoms suggest subarachnoid hemorrhage: No CT demonstrates multilobar infarct(>1/3 cerebral hemiphere): No Arterial puncture at noncompressible site in previous 7 days: No Blood glucose concentration less than 50mg/dL (2.7mmol/L): No - Ineligibility reason(s) Reasons No tPA given: Outside of window - delayed arrival NIH Stroke Scale - Last Known Well Date/Time & Onset Date Last Known Well: 08/27/18 Time Last Known Well: 13:15 - Initial Evaluation Level of consciousness: Not alert, but arousable with minimal stimulation Ask patient the month and their age: Answers both correctly Ask patient to open & close eyes; make fist and let go: Obeys both correctly Best gaze (horizontal eye movement): Normal Visual field testing: No visual field loss Facial paresis (Show teeth/raise eyebrows/close eyes tight): Normal symmetrical movement Motor Function: Left Arm: Normal Motor Function: Right Arm: Normal (extends arm 90 (or 45) degrees for 10 seconds without drift Motor Function: Left Leg: Normal (extends leg 30 degrees for 5 seconds without drift) Motor Function: Right Leg: Normal (extends leg 30 degrees for 5 seconds without drift) Limb Ataxia: No ataxia Sensory(Use pinprick test arms,legs,trunk,face/side to side): Normal Best language (Describe picture, name items, read sentences): No Aphasia Dysarthria (read several words): Mild to moderate slurring of words Extinction and Inattention: No abnormality - Total Score NIH Stroke Scale Score: 2 Past History - Past Medical History Allergies/Adverse Reactions: Allergies Allergy/AdvReac Type Severity Reaction Status Date / Time No Known Allergies Allergy Verified 08/27/18 14:12 Home Medications: Ambulatory Orders Levothyroxine [Synthroid -] 25 mcg PO ACBK 02/14/15 Simvastatin [Zocor -] 40 mg PO HS 02/14/15 Tiotropium [place] [Spiriva] 1 inh IH DAILY 02/14/15 Tamsulosin HCl 0.4 mg PO DAILY #30 cap.er.24h 12/13/16 Anemia: No Asthma: No Cancer: No Cardiac Disorders: No CVA: No COPD: Yes (COPD) CHF: No Dementia: No Diabetes: No GI Disorders: No Disorders: No HTN: No Hypercholesterolemia: Yes Liver Disease: No Seizures: No Thyroid Disease: Yes (HYPO) - Surgical History Abdominal Surgery: No Appendectomy: No Cardiac Surgery: Yes (SVT Ablation) Cholecystectomy: No Lung Surgery: No Neurologic Surgery: No Orthopedic Surgery: No - Suicide/Smoking/Psychosocial Hx Smoking Status: No Smoking History: Former smoker Years of Tobacco Use: 40 Have you smoked in the past 12 months: No Number of Cigarettes Smoked Daily: 20 If you are a former smoker, when did you quit?: 15 YRS AGO Information on smoking cessation initiated: No Hx Alcohol Use: No Drug/Substance Use Hx: No Substance Use Type: None Hx Substance Use Treatment: No Review of Systems - Review of Systems Able to Perform ROS?: No Is the patient limited Brazilian proficient: No *Physical Exam - Vital Signs Last Vital Signs Temp Pulse Resp BP Pulse Ox 97.7 F 132 H 22 H 123/86 90 L 08/27/18 14:05 08/27/18 14:05 08/27/18 14:05 08/27/18 14:05 08/27/18 14:05 - Physical Exam Comments: 08/27/18 14:41 GENERAL: Well developed, well nourished. Awake and alert. No acute distress. HEENT: Normocephalic, atraumatic. Hearing grossly normal. Moist mucous membranes. PERRLA, EOMI. No conjunctival pallor. Sclera are non-icteric. NECK: Supple. Full ROM. CARDIOVASCULAR: Regular rate and rhythm. No murmurs, rubs, or gallops. PULMONARY: No evidence of respiratory distress. Lungs clear to auscultation bilaterally. No wheezing, rales or rhonchi. ABDOMINAL: Soft. Non-tender. Non-distended. No rebound or guarding. GENITOURINARY: No CVA tenderness bilaterally. MUSCULOSKELETAL: Normal range of motion at all joints. No bony deformities or tenderness. EXTREMITIES: No cyanosis. No clubbing. No edema. No calf tenderness or swelling. SKIN: Warm and dry. Normal capillary refill. No rashes. No jaundice. NEUROLOGICAL: Alert, awake, appropriate. Cranial nerves 2-12 grossly intact. Not following commands. Slurred speech. Gait is not observable. PSYCHIATRIC: Cooperative. Good eye contact. Appropriate mood and affect. ED Treatment Course - LABORATORY CBC & Chemistry Diagram: 08/28/18 06:20 08/28/18 06:20 - ADDITIONAL ORDERS Additional order review: Laboratory Results 08/27/18 14:02 POC Glucometer [id number] 08/27/18 08/27/18 14:02 14:00 RBC 3.90 L MCV 97.2 H MCHC 33.1 RDW 14.0 MPV 8.1 Neutrophils % 60.9 Lymphocytes % 30.3 D Monocytes % 7.0 Eosinophils % 1.2 D Basophils % 0.6 POC Glucometer [id number] Medical Decision Making - Medical Decision Making 08/27/18 15:33 The patient is an 78M with a PMH of HLD and COPD who presented to the ER altered and disoriented. Upon arrival, the patient was A&Ox 1. FS was 130's. Pt was noted to be tachycardic on arrival. Code johns was called. CTH negative. Pt d /w Dr. Hoover who believes that this is not neurologic in origin. Concern for causes of syncope include: seizure, dissection, vasovagal, PE, CVA. EKG unremarkable. Giving fluids and monitoring patient. I have endorsed the patient to Dr. Lau for admission. 08/27/18 20:20 CT's negative. Pt noted to be A&Ox3 and recalled sitting in his living room then losing consciousness. He states that this has never happened before. Pt is much better appearing than initial arrival. *DC/Admit/Observation/Transfer Diagnosis at time of Disposition: Syncope and collapse, Disorientation Altered mental state Qualifiers: Altered mental status type: disorientation Qualified Code(s): R41.0 - Disorientation, unspecified - Discharge Dispostion Condition at time of disposition: Guarded Decision to Admit order: Yes - Referrals - Patient Instructions - Post Discharge Activity
[2018-08-27 14:43] LABS: ALBUMIN 3.6 g/dl (3.4-5.0); ALK PHOS 78 U/L (45-117); ANION GAP 15 MMOL/L (8-16); BILIRUBIN,TOTAL 0.3 mg/dL (0.2-1); BLOOD UREA NITROGEN 15 mg/dL (7-18); CALCIUM 9.2 mg/dL (8.5-10.1); CHLORIDE 103 mmol/L (98-107); CHOLESTEROL 118 mg/dL (50-200); CO2 18 mmol/L (21-32); CREATININE 1.4 mg/dL (0.55-1.3); GLUCOSE,RANDOM 130 mg/dL (74-106); HDL CHOLESTEROL 43 mg/dL (40-60); POTASSIUM 4.4 mmol/L (3.5-5.1); SGOT/AST 43 U/L (15-37); SGPT/ALT 56 U/L (13-61); SODIUM 136 mmol/L (136-145); TOT PROT 7.4 g/dl (6.4-8.2); TRIGLYCERIDES 206 mg/dL (0-150)
[2018-08-27] MEDS ORDERED: ONDANSETRON 4 MG/2 ML VIAL ONE (14:44)
[2018-08-27] MEDS ORDERED: SODIUM CHLORIDE 0.9% 1000 ML INFUS.BAG IV ONE (15:17)
[2018-08-27 15:20] LABS: ANISOCYTOSIS 1+; MACROCYTOSIS 1+; PLATELET ESTIMATE NORMAL
--- NOTE | 2018-08-27 15:55 | PDOC ---
Attending Attestation - Resident Resident Name: Juan Carlos Garcias - ED Attending Attestation I have performed the following: I have examined & evaluated the patient, The case was reviewed & discussed with the resident, I agree w/resident's findings & plan - HPI HPI: 08/27/18 16:21 Miguel A Amos is an 78-year-old male, with PMH of COPD, hypothyroidism, HLD, SVT s/p ablation and L inguinal hernia who presents to the ED via EMS s/p syncopal episodes today. As per EMS, found him slouched and gurgling on the sofa and called over their son. He was unable to get a response from the patient and initiated chest compressions. EMS was called soon after. Upon examination, the patient is complaining of nausea, upper back pain, temporal headache, and left-sided chest pain. He does not recall incident and states that he feels lousy. Patient experienced 2 episodes of vomiting while in the ED; blood noted in emesis but likely due to the his right lateral tongue laceration. The patient denies fevers, chills, diarrhea, or abdominal pain. He denies any weakness, numbness or tingling. Denies hx of DVTs. Allergies: NKA Social History: Former smoker. Surgical History: SVT ablation. PCP: Dr. Lau 08/27/18 16:22 - Physicial Exam PE: 08/27/18 15:54 General: (+)Diaphoretic, pale. alert, oriented to person only. HEENT: (+)Moist mucous membranes. NCAT, PERRL, EOMI, dry mucus membranes, right lateral tongue laceration. Neck: neck supple, FROM, no jvd Resp: (+)Poor inspiratory effort, hypoxic. on nasal cannula CVS: (+)Tachycardic. no murmurs, 2+ peripheral pulses throughout, no peripheral edema Abdomen: soft, NTND, no peritoneal signs. Back: nontender, normal inspection and ROM MSK: no edema, BURNHAM x4, ROM intact. No clubbing or cyanosis. normal bulk and tone. Neuro: alert, initially disoriented; no focal neurologic deficits, 5/5 strength in all extrem, SILT, no pronator drift. Skin: cap refill <2 sec, +pallor, cool to touch - Medical Decision Making 08/27/18 15:53 I, Geri Felipe MD, attest that this document has been prepared under my direction and personally reviewed by me in its entirety. I further attest, that it accurately reflects all work, treatment, procedures and medical decision -making performed by me. 78 YOM PMH of COPD, hypothyroidism, HLD, SVT s/p ablation and L inguinal hernia p/w syncope. DDx. syncope, seizure, infection, pna, UTI, CVA, SAH, SPACE SYSTEMS OPERATIONS MANAGER lesion, ACS, arrhythmia, electrolyte/metabolic derangements. Vital signs reviewed,Notable for tachycardia, hypoxia in the high 80s. Diaphoretic and pale appearing, placed on supplemental oxygen with improvement in oxygen saturation. Prior notes reviewed, including admissions, discharges and consultations. laboratory results and imaging reviewed, basic labs and lytes wnl, notable for LEUKOCYTOSIS< seizure vs infection< more likely the syncopal episode. no fever rectally, defer abx for now. 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 Cardiac panel NEGATIVE. UA_pending, unable to urinate yet, giving fluids ED course: continues to have anterior left and sternal cp, possible fracture from CPR. given IVF for dehydration and volume loss/vomiting. VS normalizing with fluids and O2, up to >95% on O2, HR in 100s Keppra IV for suspected seizure until rule out bedside pocus echo with no pericardial effusion, hyperdynamic contractility, flat IVC with collapse, RV<LV, normal EF. bedside aorta with borderline findings of prox aorta >3cm, on TV and sagittal view. will obtain CTA to r/o PE vs aortic dissection, though reassuring normal aortic root and no pericardial effusion to suggest prox dissection or leak. 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 call out to Dr. Castro, vascular for borderline AAA. Admit for syncope workup. Discussed results and management plan with pt and family member at bedside, agree with impression and plan admit to Dr. Salcedo 08/27/18 19:49 08/27/18 19:50 08/27/18 19:50 Heart Score/ECG Review - ECG Impressions Comment:: 08/27/18 16:24 EKG sinus tachycardia, no interval abnormalities, narrow QRS, ST and T wave segments and morphology normal. Nonspecific T wave abnormalities Procedures - Bedside Ultrasound Bedside Ultrasound: Cardiac Remarks: 08/27/18 16:26 POCUS echo performed, indication includes chest pain/dyspnea. views obtained ( PSLA, PSS, A4, SX, IVC). Findings include normal EF, hyperdynamic contractility. no pericardial effusion, flat IVC with >50% collapse. Normal aortic root <4cm. RV<LV. Impression: dehydration, otherwise no acute findings POCUS aorta, indication for abdominal pain and syncope. views obtained, aorta sagittal and transverse. Findings: borderline aorta ~3cm in prox aorta. impression: indeterminate, borderline aorta >3cm for AAA.
[2018-08-27] MEDS ORDERED: CEFTRIAXONE 2 GM-D5W BAG 2 GM/50 ML BAG IVPB ONE (17:58)
[2018-08-27] MEDS ORDERED: CEFTRIAXONE 2 GM in DEXTROSE 5%-WATER 100 ML IVPB ONE (18:06)
[2018-08-27] MEDS ORDERED: CEFTRIAXONE 2 GM/100 ML BAG IVPB ONE (18:39)
[2018-08-27] MEDS ORDERED: levETIRAcetam 500 MG/5 ML INJECTION VIAL IVPB ONE ×2 (18:39→20:47)
[2018-08-27] MEDS ORDERED: SODIUM CHLORIDE 0.9% 500 ML INFUS.BAG IV ONE (18:40)
[2018-08-27] MEDS: D5-1/2NS+20 MEQ KCL - 20 MEQ/1,000 ML INFUS.BAG IV SCH (19:03)
[2018-08-27] MEDS ORDERED: HEPARIN NA (PORCINE) 5,000 UNITS/ML 1ML VIAL ONE (20:47)
[2018-08-27] MEDS ORDERED: ALBUTEROL SO4 2.5/IPRATROPIUM 0.5 INH SOL 3 ML VIAL.NEB. NEB ONE (21:10)
[2018-08-27] MEDS: HEPARIN NA (PORCINE) 5,000 UNITS/ML 1ML VIAL SQ SCH (21:42)
[2018-08-27] MEDS: ALBUTEROL SO4 2.5/IPRATROPIUM 0.5 INH SOL 3 ML VIAL.NEB. NEB SCH (21:42)
--- NOTE | 2018-08-27 22:13 | CONSULT ---
Consult - text type - Consultation Consultation Note: NEUROLOGY CONSULTATION is greatly appreciated: This 78 yo RH M man lives with his and son. 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 PMH sig for HTN, Hypothyroidism, Chol and COPD. Quit smoking 15 yrs ago. Maintained on: Levothyroxine; Simvastatin; Spiriva; and Tamsulosin HCl 0.4. His marketing agent is Dr. Samano and his abrasive grader is Dr. Steiner. This afternoon he was sitting in his bedroom when he lost consciousness. He does not recall any prodromal features. Found pulseless by his son who called 911 and began CPR. Patient has vague recollections of the ambulance but essentially "woke up" in the ED. C/O Chest pain, SOB and Low back pain. CT of head (reviewed): Normal CT Angio of chest and abd shows a 3 cm AAA but is otherwise normal. JEANETTE: Neck supple. No bruits. Cor Rapid/reg (90's). No evidence of external head trauma. RR=24 NEURO: Awake, alert. Ox 3. Speech fluent with occ paraphasic errors. CN II-XII: normal Motor: No drift or tremor. Normal strength throughout. Normal reflexes except absent AJ's. Toes downgoing. Coord: No FTN dystaxia Sensory: reduced vibration toes. Gait: Deferred. IMP: Non-focal exam. Mild peripheral neuropathy Syncope- most likely on a cardiac basis. SUGGEST: R/O [place] tonight and admit monitored bed to r/o arhythmia Cardiology and pulmonary consults. Check orthostatic BP's Check B12, Glycosylated hemoglobin A1-C, ESR, CRP, [place] Out patient neuro f/u for evaluation of neuropathy. Thank you very much, José Hagre MD
[2018-08-27 23:27] LABS: URINE APPEARANCE CLEAR; URINE BILIRUBIN NEGATIVE (<2.0 mg/dL); URINE COLOR LTYELLOW; URINE GLUCOSE (UA) NEGATIVE (NEGATIVE); URINE KETONE NEGATIVE (NEGATIVE); URINE LEUK ESTERASE NEGATIVE (NEGATIVE); URINE NITRITE NEGATIVE (NEGATIVE); URINE PROTEIN NEGATIVE (NEGATIVE); URINE UROBILINOGEN NEGATIVE mg/dL (0.2-1.0)
[2018-08-27 23:33] LABS: URINE MUCUS RARE
[2018-08-28] MEDS ORDERED: ACETAMINOPHEN 500 MG TABLET (FP) PO ONE (01:41)
[2018-08-28 03:03] VITALS: BMI 23.2
[2018-08-28] MEDS: D5-1/2NS+20 MEQ KCL - 20 MEQ/1,000 ML INFUS.BAG IV SCH ×2 (06:08→21:42)
[2018-08-28 06:53] LABS: BASO % 0.3 % (0-2.0); EOS % 0.1 % (0-4.5); HEMATOCRIT 33.9 % (35.4-49); HEMOGLOBIN 11.2 GM/dL (11.7-16.9); LYMPH % 8.9 % (8-40); MCH 31.9 pg (25.7-33.7); MEAN CELL VOLUME 96.8 fl (80-96); MEAN PLT VOLUME 7.6 fl (7.5-11.1); NEUT % 86.7 % (42.8-82.8); PLATELET COUNT 162 K/MM3 (134-434); RDW 13.9 % (11.9-15.9)
[2018-08-28 07:39] LABS: ALK PHOS 60 U/L (45-117); ANION GAP 8 MMOL/L (8-16); BILIRUBIN,TOTAL 0.5 mg/dL (0.2-1); BLOOD UREA NITROGEN 13 mg/dL (7-18); CHLORIDE 105 mmol/L (98-107); CHOLESTEROL 95 mg/dL (50-200); CO2 24 mmol/L (21-32); CREATININE 0.9 mg/dL (0.55-1.3); GLUCOSE,RANDOM 114 mg/dL (74-106); HDL CHOLESTEROL 44 mg/dL (40-60); MAGNESIUM 2.3 mg/dL (1.8-2.4); POTASSIUM 4.5 mmol/L (3.5-5.1); SGOT/AST 28 U/L (15-37); SGPT/ALT 40 U/L (13-61); SODIUM 137 mmol/L (136-145); TOT PROT 6.1 g/dl (6.4-8.2); TRIGLYCERIDES 75 mg/dL (0-150)
[2018-08-28] MEDS: ALBUTEROL SO4 2.5/IPRATROPIUM 0.5 INH SOL 3 ML VIAL.NEB. NEB SCH ×4 (07:55→21:03)
--- NOTE | 2018-08-28 08:35 | HP ---
Admitting History and Physical - Admission History of Present Illness: 78-year-old male, with PMH of COPD, hypothyroidism, HLD, SVT s/p ablation and L inguinal hernia who presents to the ED via EMS s/p syncopal episodes today. As per EMS, found him slouched and gurgling on the sofa and called over their son. He was unable to get a response from the patient and initiated chest compressions. EMS was called soon after. Upon examination, the patient is complaining of nausea, upper back pain, temporal headache, and left-sided chest pain. He does not recall incident and states that he feels lousy. Patient experienced 2 episodes of vomiting while in the ED; blood noted in emesis but likely due to the his right lateral tongue laceration. The patient denies fevers, chills, diarrhea, or abdominal pain. He denies any weakness, numbness or tingling. 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 History of Recent Travel: No Home Medications - Allergies Allergies/Adverse Reactions: Allergies Allergy/AdvReac Type Severity Reaction Status Date / Time No Known Allergies Allergy Verified 08/27/18 14:12 - Home Medications Home Medications: Ambulatory Orders Levothyroxine [Synthroid -] 25 mcg PO ACBK 02/14/15 Simvastatin [Zocor -] 40 mg PO HS 02/14/15 Tiotropium [place] [Spiriva] 1 inh IH DAILY 02/14/15 Tamsulosin HCl 0.4 mg PO DAILY #30 cap.er.24h 12/13/16 Family Disease History - Family Disease History Family Disease History: Other: Brother (cva, cirrhosis) Review of Systems - Review of Systems Cardiovascular: reports: Chest Pain Respiratory: reports: SOB on Exertion Gastrointestinal: denies: Abdominal Pain Neurological: reports: Syncope Physical Examination Vital Signs: Vital Signs Temperature 98.0 F 08/28/18 06:00 Pulse Rate 90 08/28/18 06:00 Respiratory Rate 20 08/28/18 06:00 Blood Pressure 115/70 08/28/18 06:00 O2 Sat by Pulse Oximetry (%) 98 08/28/18 01:00 Cardiovascular: Yes: S1, S2, Other (cw tenderness) Respiratory: Yes: Diminished, On Nasal O2 Gastrointestinal: Yes: Normal Bowel Sounds, Soft Edema: No Neurological: Yes: Alert, Oriented Labs: CBC, BMP 08/28/18 06:20 08/28/18 06:20 Problem List - Problems (1) Chest pain Assessment/Plan: -Maybe muscular due to compresions -rib series and pain control Code(s): R07.9 - CHEST PAIN, UNSPECIFIED (2) Syncope and collapse Assessment/Plan: -tele -Cardio -Neuro noted -echo Code(s): R55 - SYNCOPE AND COLLAPSE (3) COPD (chronic obstructive pulmonary disease) Assessment/Plan: -Nebs -Steroids Code(s): J44.9 - CHRONIC OBSTRUCTIVE PULMONARY DISEASE, UNSPECIFIED (4) Hypertension Assessment/Plan: -Monitor Code(s): I10 - ESSENTIAL (PRIMARY) HYPERTENSION (5) Hypothyroid Code(s): E03.9 - HYPOTHYROIDISM, UNSPECIFIED (6) Troponin level elevated Assessment/Plan: -Follow trend -Cardio -Echo Code(s): R74.8 - ABNORMAL LEVELS OF OTHER SERUM ENZYMES
[2018-08-28] MEDS ORDERED: CEFTRIAXONE 1 GM in DEXTROSE 5%-WATER - 50 ML IVPB SCH (10:00)
[2018-08-28 10:35] LABS: URINE APPEARANCE CLEAR; URINE BILIRUBIN NEGATIVE (<2.0 mg/dL); URINE COLOR LTYELLOW; URINE GLUCOSE (UA) NEGATIVE (NEGATIVE); URINE KETONE NEGATIVE (NEGATIVE); URINE LEUK ESTERASE NEGATIVE (NEGATIVE); URINE NITRITE NEGATIVE (NEGATIVE); URINE PROTEIN NEGATIVE (NEGATIVE); URINE UROBILINOGEN NEGATIVE mg/dL (0.2-1.0)
--- NOTE | 2018-08-28 11:10 | EKG ---
Test Reason : Blood Pressure : / mmHG Vent. Rate : 099 BPM Atrial Rate : 099 BPM P-R Int : 164 ms QRS Dur : 082 ms QT Int : 352 ms P-R-T Axes : 055 015 038 degrees QTc Int : 451 ms NORMAL SINUS RHYTHM NORMAL ECG WHEN COMPARED WITH ECG OF 27-AUG-2018 14:24, PREMATURE VENTRICULAR COMPLEXES ARE NO LONGER PRESENT Confirmed by LEX MONTANA MD ([id number]) on 08/28/2018 11:09:35 AM Referred By: Confirmed By:LEX MONTANA MD
--- NOTE | 2018-08-28 11:28 | EKG ---
Test Reason : Blood Pressure : / mmHG Vent. Rate : 118 BPM Atrial Rate : 118 BPM P-R Int : 156 ms QRS Dur : 078 ms QT Int : 312 ms P-R-T Axes : 061 -03 055 degrees QTc Int : 437 ms SINUS TACHYCARDIA WITH OCCASIONAL PREMATURE VENTRICULAR COMPLEXES POSSIBLE LEFT ATRIAL ENLARGEMENT BORDERLINE ECG WHEN COMPARED WITH ECG OF 12-DEC-2016 18:54, PREMATURE VENTRICULAR COMPLEXES ARE NOW PRESENT VENT. RATE HAS INCREASED BY 41 BPM Confirmed by LEX MONTANA MD ([id number]) on 08/28/2018 11:28:00 AM Referred By: Confirmed By:LEX MONTANA MD
--- NOTE | 2018-08-28 11:40 | CON.ID ---
Consult Consult Specialty:: infectious disease Referred by:: lazaro Reason for Consultation:: pneumonia - History of Present Illness Chief Complaint: unresponsive History of Present Illness: 78 yo man was in his usual state of health ,this am- ate breakfast, watched TV- felt well found him unresponsive on the sofa called her son who started chest compressions he has no memory of this but does recall waking up in the ER no fevers now with chest and back pain 2 episodes vomiting in ED tongue laceration - History Source History Provided By: Patient, Medical Record Limitations to Obtaining History: No Limitations - Past Medical 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 Cardio/Vascular: Yes: HTN, Hyperlipdemia Pulmonary: Yes: COPD Endocrine: Yes: Hypothyroidism Additional Medical History: svt ablation years ago - Past Surgical History Past Surgical History: Yes: Hernia Repair - Alcohol/Substance Use Hx Alcohol Use: No - Smoking History Smoking history: Former smoker Have you smoked in the past 12 months: No Aproximately how many cigarettes per day: 20 If you are a former smoker, when did you quit?: 15 ys ago - Social History Usual Living Arrangement: With Spouse ADL: Independent 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 History of Recent Travel: No Home Medications - Allergies Allergies/Adverse Reactions: Allergies Allergy/AdvReac Type Severity Reaction Status Date / Time No Known Allergies Allergy Verified 08/27/18 14:12 - Home Medications Home Medications: Ambulatory Orders Levothyroxine [Synthroid -] 25 mcg PO ACBK 02/14/15 Simvastatin [Zocor -] 40 mg PO HS 02/14/15 Tiotropium [place] [Spiriva] 1 inh IH DAILY 02/14/15 Tamsulosin HCl 0.4 mg PO DAILY #30 cap.er.24h 12/13/16 Family Disease History - Family Disease History Family Disease History: Other: Brother (cva, cirrhosis) Review of Systems - Review of Systems Constitutional: reports: No Symptoms Eyes: reports: No Symptoms HENT: reports: No Symptoms Neck: reports: No Symptoms Cardiovascular: reports: Chest Pain Respiratory: reports: No Symptoms Gastrointestinal: reports: No Symptoms Genitourinary: reports: No Symptoms Musculoskeletal: reports: Back Pain Physical Exam Vital Signs: Vital Signs Temperature 97.9 F 08/28/18 10:00 Pulse Rate 92 H 08/28/18 10:00 Respiratory Rate 18 08/28/18 10:00 Blood Pressure 122/70 08/28/18 10:00 O2 Sat by Pulse Oximetry (%) 93 L 08/28/18 09:00 Constitutional: Yes: Well Nourished, No Distress, Calm Eyes: Yes: Conjunctiva Clear HENT: Yes: Atraumatic, Normocephalic Neck: Yes: Supple, Trachea Midline Cardiovascular: Yes: Regular Rate and Rhythm Respiratory: Yes: Regular, Diminished Gastrointestinal: Yes: Normal Bowel Sounds, Soft ...Rectal Exam: Yes: Deferred Renal/: No: Bladder Distention, CVA Tenderness - Left, CVA Tenderness - Right Extremities: Yes: WNL Edema: No Psychiatric: Yes: Alert, Oriented Labs: CBC, BMP 08/28/18 06:20 08/28/18 06:20 Imaging - Results Chest X-ray: Report Reviewed, Image Reviewed Cat Scan: Report Reviewed Problem List - Problems (1) Syncope and collapse Code(s): R55 - SYNCOPE AND COLLAPSE (2) Pneumonia Code(s): J18.9 - PNEUMONIA, UNSPECIFIED ORGANISM Assessment/Plan etilogy of episode unrespoonsiveness unclear ?seizure, tongue laceration noted ct scan with LLL infiltrate-?aspiration no recent admissions will switch to unasyn to cover aspiration syncopoe/seizure workup per cardiology and neurology
[2018-08-28] MEDS ORDERED: NITROGLYCERIN 2% OINTMENT - 1GM PACKET TD SCH (12:00)
[2018-08-28] MEDS ORDERED: cefTRIAXone SODIUM 1 GM VIAL ONE (12:03)
[2018-08-28] MEDS ORDERED: DEXTROSE 5%-WATER - 50 ML IVPB ONE (12:04)
[2018-08-28] MEDS: HEPARIN NA (PORCINE) 5,000 UNITS/ML 1ML VIAL SQ SCH ×2 (12:10→21:40)
[2018-08-28] MEDS: methylPREDNISolone NA SUCC 40 MG/1 ML VIAL IVPUSH SCH ×3 (12:10→21:40)
[2018-08-28] MEDS: ACETAMINOPHEN 325 MG TABLET (FP) PO PRN ×2 (14:01→21:41)
--- NOTE | 2018-08-28 14:08 | ECHO ---
Version: 1 Name: LASHAE BOWENS Exam: Adult Echocardiogram Study Date: 08/28/2018, 12:01 PM Age: 78 Years MMode/2D Measurements & Calculations IVSd: 0.93 cm LVIDs: 3.7 cm LVIDd: 4.9 cm LVPWd: 0.89 cm ACS: 1.73 cm Ao root diam: 3.6 cm LA dimension: 4.0 cm Doppler Measurements & Calculations MV E max sanford: 91.6 cm/sec Med E/e': 11.1 MV A max sanford: 131.3 cm/sec Med Peak E' [place]: 8.3 cm/sec MV E/A: 0.70 Lat E/e': 10.9 Lat Peak E' [place]: 8.4 cm/sec Ao max P.9 mmHg Ao mean P.0 mmHg Ao V2 max: 164.8 cm/sec TR max sanford: 357.4 cm/sec TR max P.2 mmHg Procedure A two-dimensional transthoracic echocardiogram with color flow and Doppler was performed. The study was technically difficult with many images being suboptimal in quality. Left Ventricle The left ventricular size, thickness and function are normal. The left ventricular ejection fraction is normal. E/A reversal consistent with but not diagnostic of poor LV compliance. Regional wall motion abnormalities cannot be excluded due to limited visualization. Right Ventricle The right ventricle is not well visualized. Atria The left atrium is mildly dilated. The right atrium is mildly dilated. Mitral Valve The mitral valve is not well visualized. There is no mitral valve stenosis. There is trace to mild m itral regurgitation. Tricuspid Valve There is mild tricuspid valve thickening. There is no tricuspid stenosis. There is mild tricuspid regurgitation. Right ventricular systolic pressure is elevated at 50-60mmHg. Aortic Valve The aortic valve is not well visualized. No hemodynamically significant valvular aortic stenosis. No aortic regurgitation is present. Pulmonic Valve The pulmonic valve is not well visualized. Great Vessels The aortic root is normal size. Pericardium/Pleura There is no pericardial effusion. Summary Statements The left ventricular size, thickness and function are normal The left ventricular ejection fraction is normal. There is mild tricuspid regurgitation. Right ventricular systolic pressure is elevated at 50-60mmHg. The left atrium is mildly dilated. The right atrium is mildly dilated. E/A reversal consistent with but not diagnostic of poor LV compliance The study was technically difficult with many images being suboptimal in quality. Regional wall motion abnormalities cannot be excluded due to limited visualization. There is trace to mild mitral regurgitation. MD Elia Youssef 08/28/2018, 2:08 PM Ordering Physician: Armand Lau Referring Physician: Armand Lau Performed By: Aydee Reed
--- NOTE | 2018-08-28 15:50 | CON.CARD ---
Consult Consult Specialty:: Cardiology Referred by:: Dr. Lau Reason for Consultation:: SYncope - History of Present Illness Chief Complaint: found unresponsive at home History of Present Illness: 78 year old man with pmh COPD, hypothyroid, HLD, SVT s/p ablation years ago, cardiac cath done at that time showed normal coronary arteries, previous admission 2014 for syncope felt to be due to orthostatic hypotension now admitted after found unresponsive at home and received CPR by his son. Pt recovered mental status after arrival to the ER. Pt seen and examined today in nad. currently awake, alert, oriented. He states that he has been feeling well lately. He saw his patient support specialist Dr. Samano 07/2018 and told he was doing well. The last thing he remembers is sitting down in a chair in his house to watch tv and the next thing he knew he was in the hospital. Prior to sitting he had walked downstairs to do laundry and back up. Denies any preceding symptoms. No sob, palpitations, lightheadedness, or dizziness. No chest pain prior to the event. no fever chills. As per report pts son thought he was having a seizure when he found him. Pt also noted to have vomiting in the ER and a tongue laceration. He currently has rib pain from receiving CPR. - History Source History Provided By: Patient, Family Member Limitations to Obtaining History: No Limitations - Past Medical History INTAKE COORDINATOR: Yes: Other, Syncope Cardio/Vascular: Yes: HTN, Hyperlipdemia Pulmonary: Yes: COPD Endocrine: Yes: Hypothyroidism - Past Surgical History Past Surgical History: Yes: None - Alcohol/Substance Use Hx Alcohol Use: No - Smoking History Smoking history: Former smoker Have you smoked in the past 12 months: No Aproximately how many cigarettes per day: 20 If you are a former smoker, when did you quit?: 15 ys ago - Social History Usual Living Arrangement: With Spouse ADL: Independent 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 History of Recent Travel: No Home Medications - Allergies Allergies/Adverse Reactions: Allergies Allergy/AdvReac Type Severity Reaction Status Date / Time No Known Allergies Allergy Verified 08/27/18 14:12 - Home Medications Home Medications: Ambulatory Orders Levothyroxine [Synthroid -] 25 mcg PO ACBK 02/14/15 Simvastatin [Zocor -] 40 mg PO HS 02/14/15 Tiotropium Jaroso [Spiriva] 1 inh IH DAILY 02/14/15 Tamsulosin HCl 0.4 mg PO DAILY #30 cap.er.24h 12/13/16 Family Disease History - Family Disease History Family Disease History: Other: Brother (cva, cirrhosis) Review of Systems - Review of Systems Constitutional: denies: No Symptoms, Chills, Diaphoresis, Fever, Lethargy, Loss of Appetite, Malaise, Night Sweats, Unintentional Wgt. Loss, Weakness, Other Eyes: denies: No Symptoms, Blind Spots, Blurred Vision, Double Vision, Eye Pain , Floaters, Photophobia, Recent Change in Vision, Other HENT: denies: No Symptoms, Difficult Swallowing, Ear Discharge, Ear Pain, Epistaxis, Gingival Bleeding, Hearing Loss, Mouth Swelling, Nasal Congestion, Ocular Prosthesis, Throat Pain, Toothache, Ringing in Ears, Other Neck: denies: No Symptoms, Decreased ROM, Lumps, Pain on Movement, Stiffness, Swollen Glands, Tenderness, Other Cardiovascular: denies: No Symptoms, Chest Pain, Edema, Palpitations, Shortness of Breath, Other Respiratory: denies: No Symptoms, Cough, Exercise Intolerance, Hemoptysis, Orthopnea, PND, Snoring, SOB, SOB on Exertion, Wheezing, Other Gastrointestinal: denies: No Symptoms, Abdominal Pain, Bloating, Constipation, Diarrhea, Dysphagia, Indigestion, Melena, Nausea, Rectal Bleeding, Vomiting, Vomiting Blood, Other Genitourinary: denies: No Symptoms, Burning, Discharge, Dysuria, Flank Pain, Frequency, Hematuria, Incontinence, Lesions, Menses, Pain, Testicular Mass, Testicular Pain, Testicular Swelling, Urgency, Vaginal Bleeding, Other Breasts: denies: No Symptoms Reported, See HPI, Breast Implants, Discharge from Nipple, Lumps, Pain, Skin Changes, Other Musculoskeletal: denies: No Symptoms, Back Pain, Crepitus, Decreased ROM, Extremity Pain, Joint Pain, Joint Swelling, Muscle Pain, Muscle Cramps, Muscle Weakness, Other Integumentary: denies: No Symptoms, Blister, Bruising, Change in Color, Eczema, Erythema, Incision, Lesions, Lump, Pallor, Pruritis, Rash, Wound, Other Neurological: reports: Syncope. denies: No Symptoms, Change in LOC, Change in Speech, Confusion, Dizziness, Headache, Incoordination, Numbness, Parasthesia, Pre-Existing Deficit, Seizure, Tremors, Unsteady Gait, Weakness, Other Endocrine: denies: No Symptoms, Excessive Sweating, Flushing, Increased Hunger, Increased Thirst, Intolerance to Cold, Intolerance to Heat, Unexplained Weight Gain, Unexplained Weight Loss, Other Hematology/Lymphatic: denies: No Symptoms, Easily Bruised, Excessive Bleeding, Swollen Glands, Other Psychiatric: denies: No Symptoms, Altered Sleep Pattern, Anxiety, Depression, Hallucinations, Panic, Paranoia, Suicidal, Other - Risk Factors Known Risk Factors: Yes: Age, Hypertension Vital Signs: Vital Signs Temperature 97.8 F 08/28/18 14:05 Pulse Rate 101 H 08/28/18 14:05 Respiratory Rate 16 08/28/18 14:05 Blood Pressure 108/62 08/28/18 14:05 O2 Sat by Pulse Oximetry (%) 93 L 08/28/18 09:00 Constitutional: Yes: Well Nourished, No Distress, Calm Eyes: Yes: WNL, Conjunctiva Clear, EOM Intact, PERRL HENT: Yes: WNL, Atraumatic, Normocephalic Neck: Yes: WNL, Supple, Trachea Midline Respiratory: Yes: Regular, Diminished, Rhonchi. No: Rales, SOB, Wheezes Gastrointestinal: Yes: WNL, Normal Bowel Sounds, Soft. No: Distention, Tenderness Renal/: Yes: WNL Cardiovascular: Yes: WNL, Regular Rate and Rhythm. No: Bradycardia, Tachycardia , Pulse Irregular, Gallop, Rub, Varicosities JVD: No Carotid Bruit: No PMI: Non-Displaced Heart Sounds: Yes: S1, S2. No: Split S2, S3, S4, Clicks, Gallop, Rub, Bruit Murmur: No: Systolic Murmur, Diastolic Murmur Musculoskeletal: Yes: Other (chest wall pain, pain on inspiration) Extremities: Yes: WNL Edema: No Peripheral Pulses WNL: No Neurological: Yes: Alert, Oriented Psychiatric: Yes: Alert, Oriented - Other Data Labs, Other Data: CBC, BMP 08/28/18 06:20 08/28/18 06:20 INR, PTT INR 1.05 (0.83-1.09) 08/27/18 14:00 Troponin, BNP 08/27/18 08/28/18 23:00 06:20 Troponin I 0.21 H 0.14 H B-Natriuretic Peptide 619.0 H Troponin, BNP 08/27/18 08/28/18 23:00 06:20 Troponin I 0.21 H 0.14 H B-Natriuretic Peptide 619.0 H ekg-nsr 99bpm, normal ecg Echo: Report Reviewed Imaging - Results Chest X-ray: Report Reviewed, Image Reviewed EKG: Report Reviewed, Image Reviewed Other: Report Reviewed, Image Reviewed (tele-nsr, pvcs, no sig arrhythmias) Assessment/Plan 78 year old man with pmh COPD, hypothyroid, HLD, SVT s/p ablation years ago, cardiac cath done at that time showed normal coronary arteries, previous admission 2014 for syncope felt to be due to orthostatic hypotension now admitted after found unresponsive at home and received CPR by his son. Pt recovered mental status after arrival to the ER. Pt seen and examined today in nad. currently awake, alert, oriented. He states that he has been feeling well lately. He saw his patient support specialist Dr. Samano 07/2018 and told he was doing well. The last thing he remembers is sitting down in a chair in his house to watch tv and the next thing he knew he was in the hospital. Prior to sitting he had walked downstairs to do laundry and back up. Denies any preceding symptoms. No sob, palpitations, lightheadedness, or dizziness. No chest pain prior to the event. no fever chills. As per report pts son thought he was having a seizure when he found him. Pt also noted to have vomiting in the ER and a tongue laceration. He currently has rib pain from receiving CPR. Syncope/unresponsiveness-uncertain etiology -no obvious cardiac source -ekg is normal -echo showed normal LV systolic function, no sig valvular abnl and no pericardial effusion -only PVCs on tele with no sig arrhythmias -unlikely that a ventricular arrhythmia or an CA would have caused this in the setting of normal LV systolic function and with rapid recovery to baseline -troponin is mildly elevated but could be from CPR -pt reports a normal cardiac cath in the past but years ago -CTA chest showed mild distal aaa but no proximal aneursym and no dissection, no pulmonary embolism -pt has h/o orthostatic hypotension and syncope 2014 but none since then and this episode occurred while sitting down and associated with a prolonged unresponsive period so unlikely -will discuss with his patient support specialist Dr. Samano in regards to recent work up that was done -would consider seizure, pts son thought he was having a seizure, pt does have a laceration on his tongue -cont tele monitoring for now -will consider additional cardiac work up after speaking with Dr. Samano -his current chest pain is clearly MSK from CPR, would dc NTG patch -no clinical sign of CHF, would not diurese at this time -currently receiving Abx and steroids
[2018-08-28] MEDS: AMPICILLIN NA/SULBACTAM NA 3 GM in SODIUM CHLORIDE 100 ML IVPB SCH (22:14)
[2018-08-29] MEDS ORDERED: PT OWN MED DRAWER 7, Y5N ONE ×3 (03:07→21:08)
[2018-08-29] MEDS: AMPICILLIN NA/SULBACTAM NA 3 GM in SODIUM CHLORIDE 100 ML IVPB SCH ×4 (03:18→21:15)
[2018-08-29] MEDS: methylPREDNISolone NA SUCC 40 MG/1 ML VIAL IVPUSH SCH ×4 (03:18→21:15)
[2018-08-29] MEDS: ALBUTEROL SO4 2.5/IPRATROPIUM 0.5 INH SOL 3 ML VIAL.NEB. NEB SCH ×4 (07:30→20:30)
--- NOTE | 2018-08-29 08:21 | PN ---
Progress Note, Physician - Current Medication List Current Medications: Active Medications Acetaminophen (Tylenol -) 650 mg PO Q6H PRN PRN Reason: PAIN LEVEL > 5 Last Admin: 08/28/18 21:41 Dose: 650 mg Albuterol/Ipratropium (Duoneb -) 1 amp NEB RQID [facility] Last Admin: 08/29/18 07:30 Dose: 1 amp Heparin Sodium (Porcine) (Heparin -) 5,000 unit SQ BID [facility] Last Admin: 08/28/18 21:40 Dose: 5,000 unit Potassium Chloride/Dextrose/Sod Cl (D5-1/2ns+20 Meq Kcl -) 20 meq in 1,000 mls @ 83 mls/hr IV ASDIR [facility] Last Admin: 08/28/18 21:42 Dose: 83 mls/hr Ampicillin Sodium/Sulbactam (Sodium 3 gm/ Sodium Chloride) 100 mls @ 200 mls/ hr IVPB Q6H-IV [facility] Last Admin: 08/29/18 03:18 Dose: 200 mls/hr Methylprednisolone Sodium Succinate (Solu-Medrol -) 40 mg IVPUSH Q6H-IV [facility] Last Admin: 08/29/18 03:18 Dose: 40 mg - Objective Vital Signs: Vital Signs Temperature 97.6 F 08/29/18 06:00 Pulse Rate 83 08/29/18 06:00 Respiratory Rate 20 08/29/18 06:00 Blood Pressure 131/77 08/29/18 06:00 O2 Sat by Pulse Oximetry (%) 94 L 08/28/18 20:41 Cardiovascular: Yes: Regular Rate and Rhythm Respiratory: Yes: Diminished, On Nasal O2 Gastrointestinal: Yes: Normal Bowel Sounds, Soft. No: Tenderness Labs: CBC, BMP 08/28/18 06:20 08/28/18 06:20 INR, PTT INR 1.05 (0.83-1.09) 08/27/18 14:00 Problem List - Problems (1) Syncope and collapse Assessment/Plan: -tele--no arrythmia noted -Cardio consult noted -Neuro noted -echo nl lv -ct head nad----cta 3 cm AAA -EEG -PT Code(s): R55 - SYNCOPE AND COLLAPSE (2) Chest pain Assessment/Plan: -Maybe muscular due to compressions -rib series and pain control Code(s): R07.9 - CHEST PAIN, UNSPECIFIED (3) COPD (chronic obstructive pulmonary disease) Assessment/Plan: -Nebs -Steroids Code(s): J44.9 - CHRONIC OBSTRUCTIVE PULMONARY DISEASE, UNSPECIFIED (4) Hypertension Assessment/Plan: -Monitor Code(s): I10 - ESSENTIAL (PRIMARY) HYPERTENSION (5) Hypothyroid Code(s): E03.9 - HYPOTHYROIDISM, UNSPECIFIED (6) Troponin level elevated Assessment/Plan: -Follow trend -Cardio consult noted -Echo Code(s): R74.8 - ABNORMAL LEVELS OF OTHER SERUM ENZYMES (7) Pneumonia Assessment/Plan: -Iv abx per id Code(s): J18.9 - PNEUMONIA, UNSPECIFIED ORGANISM
[2018-08-29] MEDS: HEPARIN NA (PORCINE) 5,000 UNITS/ML 1ML VIAL SQ SCH ×2 (09:24→21:15)
--- NOTE | 2018-08-29 15:43 | CONS ---
DATE OF CONSULTATION: 08/29/2018 PHYSICAL MEDICINE REHABILITATION CONSULTATION REFERRING PHYSICIAN: Armand Lau MD HISTORY OF PRESENT ILLNESS: Patient is an 78-year-old man with past medical history of COPD, hypertension, SVT ablation years ago who was admitted following a syncopal episode. Patient had no fever. He does get shortness of breath, but this is usual. He does also have some coughing due to underlying COPD but his normal state of health until he suffered a syncopal episode. He was brought in for further evaluation and found to have elevation of WBCs of 15.3, hemoglobin 12.6, platelet count 242, elevated creatinine 1.4, normal sodium 136, potassium 4.4, normal BUN 15. Patient underwent imaging which included a CT and was found to have left lower lobe infiltrate which was thought due to aspiration. He did have some sort of reflux after the syncopal episode. Patient was placed on IV antibiotics. Repeat blood work showed elevated WBCs improved to 12.0, hemoglobin 11.2, platelet count 162, BUN normal 13, creatinine normalized to 0.9, hemoglobin A1c 5.7. The patient feels fairly well. He does get some dyspnea on exertion. He has had episodes of back pain but no current back pain or radicular pain. He was assessed by physical therapy and states he was able to ambulate, but his session was cut short as he had to go for further testing. He has no dizziness or lightheadedness. No blurry vision or double vision. No shortness of breath at rest. REVIEW OF PAST MEDICAL AND SURGICAL HISTORY: Hypertension, hyperlipidemia, COPD, hypothyroidism, SVT ablation, and hernia repair. SOCIAL HISTORY: Lives with family in a multifamily house, 6 plus another 6 steps to get to his level. Premobidly independent. Ambulatory without assistive device. Current function able to ambulate per the patient. REVIEW OF SYSTEMS: No headache. No lightheadedness, dizziness, blurred vision, nausea, vomiting. He does have some slight difficulty with swallowing with burning. No shortness of breath at rest but some dyspnea on exertion, some cough at times. No chest pain. No abdominal pain. No bowel or bladder incontinence, retention, diarrhea. No significant weight change. No joint arthralgias. No current neck or back pain. He did have an episode of back pain possibly radiant to the right lower extremity which resolved spontaneously. No other joint arthralgias or arthritis. No fever or chills. No skin rash. PHYSICAL EXAMINATION: General: Patient is a tall, thin man seen lying in bed. He is in no acute distress. HEENT: Normocephalic, atraumatic. Extraocular muscles appear intact. Neck: Supple. Extremities: Without any pitting edema or calf tenderness. Skin: Without any rash or breakdown. Neuromuscular: He is awake, alert, oriented x3. Cranial nerves II through XII are grossly intact. He has good strength and range of motion throughout his upper extremities. He has no advanced osteo-degenerative changes in his upper extremities. In the lower extremities, he has 5/5 hip girdle strength. Good knee flexion and extension. Good dorsiflexion and plantarflexion strength. He has normal sensation to light touch and pinprick. Symmetric reflexes. Toes are downgoing. Good sitting balance. OVERALL IMPRESSION: 1. Mild deficits in mobility activities of daily living which seem to be resolving. 2. Status post syncopal episode. 3. Left lower lobe infiltrate, possible pneumonia, possible aspiration. 4. Burning with swallowing, possibly due to reflux. 5. Leukocytosis improving. 6. Mild anemia. 7. Status post elevated creatinine resolving. 8. Elevated risk for deep vein thrombosis due to immobility. 9. Elevated risk for skin breakdown due to immobility. 10. History of underlying chronic obstructive pulmonary disease. 11. History of hypertension. PLAN/SUGGESTION: 1. Continue physical therapy at the bedside for mobilization, transfers, gait training, strengthening, reconditioning, stair negotiation if able. 2. Out of bed to chair with assistance. 3. DVT prophylaxis. Recommend subcu heparin or early ambulation. 4. Skin precautions. Avoid sacral heel pressure. 5. Follow up CBC. Monitor WBCs, hemoglobin, and hematocrit. 6. Infectious Disease followup. 7. Bowel regimen. Monitor for constipation. 8. Home when medically stable. Thank you for this referral. STACEY ALVAREZ M.D. [id number]
--- NOTE | 2018-08-29 16:49 | PN ---
Progress Note, Physician History of Present Illness: seen and examined today in [facility]. no overnight events. no new complaints. - Current Medication List Current Medications: Active Medications Acetaminophen (Tylenol -) 650 mg PO Q6H PRN PRN Reason: PAIN LEVEL > 5 Last Admin: 08/28/18 21:41 Dose: 650 mg Albuterol/Ipratropium (Duoneb -) 1 amp NEB RQID [facility] Last Admin: 08/29/18 15:23 Dose: 1 amp Heparin Sodium (Porcine) (Heparin -) 5,000 unit SQ BID [facility] Last Admin: 08/29/18 09:24 Dose: 5,000 unit Ampicillin Sodium/Sulbactam (Sodium 3 gm/ Sodium Chloride) 100 mls @ 200 mls/ hr IVPB Q6H-IV [facility] Last Admin: 08/29/18 14:05 Dose: 200 mls/hr Methylprednisolone Sodium Succinate (Solu-Medrol -) 40 mg IVPUSH Q6H-IV [facility] Last Admin: 08/29/18 14:04 Dose: 40 mg - Objective Vital Signs: Vital Signs Temperature 97.9 F 08/29/18 13:25 Pulse Rate 106 H 08/29/18 13:25 Respiratory Rate 20 08/29/18 13:25 Blood Pressure 141/82 08/29/18 13:25 O2 Sat by Pulse Oximetry (%) 94 L 08/29/18 09:00 Constitutional: Yes: No Distress, Calm Eyes: Yes: Conjunctiva Clear, EOM Intact, PERRL HENT: Yes: Atraumatic, Normocephalic Neck: Yes: Supple, Trachea Midline Cardiovascular: Yes: Regular Rate and Rhythm, S1, S2. No: Bradycardia, Tachycardia, Pulse Irregular, Bruit, JVD, Gallop, Murmur, Rub, S3, S4, Varicosities Respiratory: Yes: Regular, Cough, Rhonchi. No: Rales, SOB, Wheezes Gastrointestinal: Yes: Normal Bowel Sounds, Soft. No: Distention, Tenderness Musculoskeletal: Yes: WNL Extremities: Yes: WNL Edema: No Peripheral Pulses WNL: Yes Peripheral Pulses: Left Doralis Pedis: 2+, Right Dorsalis Pedis: 2+ Neurological: Yes: Alert, Oriented Psychiatric: Yes: Alert, Oriented Labs: CBC, BMP 08/28/18 06:20 08/28/18 06:20 INR, PTT INR 1.05 (0.83-1.09) 08/27/18 14:00 - ....Imaging Chest X-ray: Report Reviewed, Image Reviewed EKG: Report Reviewed, Image Reviewed Other: Report Reviewed, Image Reviewed (tele-nsr, pvcs) Assessment/Plan 78 year old man with pmh COPD, hypothyroid, HLD, SVT s/p ablation years ago, cardiac cath done at that time showed normal coronary arteries, previous admission 2014 for syncope felt to be due to orthostatic hypotension now admitted after found unresponsive at home and received CPR by his son. Pt recovered mental status after arrival to the ER. Pt seen and examined today in nad. currently awake, alert, oriented. He states that he has been feeling well lately. He saw his personal driver Dr. Samano 07/2018 and told he was doing well. The last thing he remembers is sitting down in a chair in his house to watch tv and the next thing he knew he was in the hospital. Prior to sitting he had walked downstairs to do laundry and back up. Denies any preceding symptoms. No sob, palpitations, lightheadedness, or dizziness. No chest pain prior to the event. no fever chills. As per report pts son thought he was having a seizure when he found him. Pt also noted to have vomiting in the ER and a tongue laceration. He currently has rib pain from receiving CPR. Syncope/unresponsiveness-uncertain etiology -no obvious cardiac source thus far -ekg is normal -echo showed normal LV systolic function, no sig valvular abnl and no pericardial effusion -only PVCs on tele with no sig arrhythmias -unlikely that a ventricular arrhythmia or an DC would have caused this in the setting of normal LV systolic function and with rapid recovery to baseline -troponin is mildly elevated but could be from CPR -pt reports a normal cardiac cath in the past but years ago -CTA chest showed mild distal aaa but no proximal aneursym and no dissection, no pulmonary embolism -pt has h/o orthostatic hypotension and syncope 2014 but none since then and this episode occurred while sitting down and associated with a prolonged unresponsive period so unlikely -Discussed with his personal driver Dr. Samano yesterday, pt had a stress test a few years ago that was normal but no other recent tests. -would consider seizure, pts son thought he was having a seizure, pt does have a laceration on his tongue -fup EEG from today -cont tele monitoring for now -his current chest pain is clearly MSK from CPR -no clinical sign of CHF, would not diurese at this time -currently receiving Abx and steroids -if Neurology feels that this was not a seizure and if EEG wnl then will plan for cardiac cath prior to discharge
[2018-08-30] MEDS ORDERED: PT OWN MED DRAWER 7, Y5N ONE (01:56)
[2018-08-30] MEDS: ACETAMINOPHEN 325 MG TABLET (FP) PO PRN ×3 (01:58→14:46)
[2018-08-30] MEDS: methylPREDNISolone NA SUCC 40 MG/1 ML VIAL IVPUSH SCH ×4 (02:02→21:47)
[2018-08-30] MEDS: AMPICILLIN NA/SULBACTAM NA 3 GM in SODIUM CHLORIDE 100 ML IVPB SCH ×4 (02:02→21:47)
--- NOTE | 2018-08-30 07:31 | PN ---
Progress Note, Physician - Current Medication List Current Medications: Active Medications Acetaminophen (Tylenol -) 650 mg PO Q6H PRN PRN Reason: PAIN LEVEL > 5 Last Admin: 08/30/18 01:58 Dose: 650 mg Albuterol/Ipratropium (Duoneb -) 1 amp NEB RQID [facility] Last Admin: 08/29/18 20:30 Dose: 1 amp Heparin Sodium (Porcine) (Heparin -) 5,000 unit SQ BID [facility] Last Admin: 08/29/18 21:15 Dose: 5,000 unit Ampicillin Sodium/Sulbactam (Sodium 3 gm/ Sodium Chloride) 100 mls @ 200 mls/ hr IVPB Q6H-IV [facility] Last Admin: 08/30/18 02:02 Dose: 200 mls/hr Methylprednisolone Sodium Succinate (Solu-Medrol -) 40 mg IVPUSH Q6H-IV [facility] Last Admin: 08/30/18 02:02 Dose: 40 mg - Objective Vital Signs: Vital Signs Temperature 97.6 F 08/30/18 06:00 Pulse Rate 90 08/30/18 06:00 Respiratory Rate 18 08/30/18 06:00 Blood Pressure 146/91 08/30/18 06:00 O2 Sat by Pulse Oximetry (%) 94 L 08/29/18 21:00 Cardiovascular: Yes: S1, S2 Respiratory: Yes: Regular, CTA Bilaterally Gastrointestinal: Yes: Normal Bowel Sounds, Soft Labs: CBC, BMP 08/28/18 06:20 08/28/18 06:20 INR, PTT INR 1.05 (0.83-1.09) 08/27/18 14:00 Problem List - Problems (1) Syncope and collapse Assessment/Plan: -tele--no arrythmia noted -Cardio consult noted -Neuro noted -echo nl lv -ct head nad----cta 3 cm AAA -EEG -PT Code(s): R55 - SYNCOPE AND COLLAPSE (2) Chest pain Assessment/Plan: -Maybe muscular due to compressions -rib series and pain control Code(s): R07.9 - CHEST PAIN, UNSPECIFIED (3) COPD (chronic obstructive pulmonary disease) Assessment/Plan: -Nebs -Steroids Code(s): J44.9 - CHRONIC OBSTRUCTIVE PULMONARY DISEASE, UNSPECIFIED (4) Hypertension Assessment/Plan: -Monitor Code(s): I10 - ESSENTIAL (PRIMARY) HYPERTENSION (5) Hypothyroid Code(s): E03.9 - HYPOTHYROIDISM, UNSPECIFIED (6) Troponin level elevated Assessment/Plan: -Follow trend -Cardio consult noted -Echo NL Code(s): R74.8 - ABNORMAL LEVELS OF OTHER SERUM ENZYMES (7) Pneumonia Assessment/Plan: -Iv abx per id Code(s): J18.9 - PNEUMONIA, UNSPECIFIED ORGANISM (8) Seizure Assessment/Plan: -NEED TO RULE OUT\-EEG -NEURO FOLLOW UP Code(s): R56.9 - UNSPECIFIED CONVULSIONS
[2018-08-30] MEDS: ALBUTEROL SO4 2.5/IPRATROPIUM 0.5 INH SOL 3 ML VIAL.NEB. NEB SCH ×4 (07:33→20:37)
[2018-08-30] MEDS: HEPARIN NA (PORCINE) 5,000 UNITS/ML 1ML VIAL SQ SCH ×2 (09:05→21:47)
[2018-08-30] MEDS: PANTOPRAZOLE SODIUM 40 MG VIAL IVPUSH SCH ×2 (14:04→21:48)
--- NOTE | 2018-08-30 14:19 | PN ---
Progress Note (short form) - Note Progress Note: some heartburn today otherwise intermittent cough no fevers Vital Signs Period Temp Pulse Resp BP Sys/Guillaume Pulse Ox Last 24 Hr 97.6 F-98.3 F 90-112 18-20 137-155/80-95 94-94 cor-rrr lungs clear abd soft,nt ext no edema CBC, BMP 08/28/18 06:20 08/28/18 06:20 Microbiology 08/27/18 23:00 Blood - Peripheral Venous Blood Culture - Preliminary NO GROWTH OBTAINED AFTER 48 HOURS, INCUBATION TO CONTINUE FOR 3 DAYS. 08/27/18 23:00 Blood - Peripheral Venous Blood Culture - Preliminary NO GROWTH OBTAINED AFTER 48 HOURS, INCUBATION TO CONTINUE FOR 3 DAYS. 08/28/18 17:00 Urine For Antigen Detection Legionella Antigen - Final 08/28/18 17:00 Urine For Antigen Detection Streptococcus pneumoniae Antigen (M - Final 08/28/18 02:00 Urine - Urine Clean Catch Urine Culture - Final NO GROWTH OBTAINED 08/27/18 23:00 Urine - Urine Clean Catch Urine Culture - Final a/p syncope ?etiology pneumonia- suspect aspiration afebrile day #4 unasyn will switch to augmentin to complete 7 days please call back if needed Problem List - Problems (1) Syncope and collapse Code(s): R55 - SYNCOPE AND COLLAPSE (2) Pneumonia Code(s): J18.9 - PNEUMONIA, UNSPECIFIED ORGANISM
[2018-08-30] MEDS: CLOTRIMAZOLE 10 MG TROCHE (FP) PO SCH ×3 (14:46→21:48)
--- NOTE | 2018-08-30 16:02 | PN ---
Progress Note, Physician Chief Complaint: Chest pain with coughing History of Present Illness: This is an 78 year old male with a PMH of COPD, hypothyroid, HLD, SVT s/p ablation years ago, cardiac cath done at that time showed normal coronary arteries, previous admission 2014 for syncope felt to be due to orthostatic hypotension now admitted after found unresponsive at home and received CPR by his son. Pt recovered mental status after arrival to the ER. Pt seen and examined today in nad. currently awake, alert, oriented. 08/30/18 Complaining of chest pain only with coughing. - Current Medication List Current Medications: Active Medications Acetaminophen (Tylenol -) 650 mg PO Q6H PRN PRN Reason: PAIN LEVEL > 5 Last Admin: 08/30/18 14:46 Dose: 650 mg Albuterol/Ipratropium (Duoneb -) 1 amp NEB RQID [facility] Last Admin: 08/30/18 11:11 Dose: Not Given Clotrimazole (Mycelex Bennie's -) 10 mg PO 5XD [facility] Last Admin: 08/30/18 14:46 Dose: 10 mg Heparin Sodium (Porcine) (Heparin -) 5,000 unit SQ BID [facility] Last Admin: 08/30/18 09:05 Dose: 5,000 unit Ampicillin Sodium/Sulbactam (Sodium 3 gm/ Sodium Chloride) 100 mls @ 200 mls/ hr IVPB Q6H-IV [facility] Last Admin: 08/30/18 14:46 Dose: 200 mls/hr Methylprednisolone Sodium Succinate (Solu-Medrol -) 40 mg IVPUSH Q6H-IV [facility] Last Admin: 08/30/18 14:46 Dose: 40 mg Pantoprazole Sodium (Protonix Iv) 40 mg IVPUSH BID [facility] Last Admin: 08/30/18 14:04 Dose: 40 mg - Objective Vital Signs: Vital Signs Temperature 98.3 F 08/30/18 09:00 Pulse Rate 98 H 08/30/18 09:00 Respiratory Rate 18 08/30/18 09:00 Blood Pressure 137/80 08/30/18 09:00 O2 Sat by Pulse Oximetry (%) 94 L 08/30/18 10:00 Constitutional: Yes: No Distress Eyes: Yes: WNL HENT: Yes: WNL Neck: Yes: WNL Cardiovascular: Yes: Regular Rate and Rhythm (NL S1S2 No MRHG) Respiratory: Yes: CTA Bilaterally Gastrointestinal: Yes: Normal Bowel Sounds Extremities: Yes: WNL Edema: No Neurological: Yes: Alert, Oriented (Grossly non focal) Labs: CBC, BMP 08/28/18 06:20 08/28/18 06:20 INR, PTT INR 1.05 (0.83-1.09) 08/27/18 14:00 Assessment/Plan 78 year old male with a PMH of COPD, hypothyroid, HLD, SVT s/p ablation years ago, cardiac cath done at that time showed normal coronary arteries, previous admission 2014 for syncope felt to be due to orthostatic hypotension now admitted after found unresponsive at home and received CPR by his son. Pt recovered mental status after arrival to the ER. Pt seen and examined today in nad. currently awake, alert, oriented. 08/30/18 Complaining of chest pain only with coughing. EKG no acute changes Troponins sent echo showed normal LV systolic function, no sig valvular abnl and no pericardial effusion Seizure evaluation in progress. If Neurology feels that this was not a seizure and if EEG wnl then will plan for cardiac cath prior to discharge Will follow with you.
--- NOTE | 2018-08-30 19:21 | PN ---
Progress Note (short form) - Note Progress Note: NEUROLOGY FOLLOW-UP: Events reviewed. Dr. Vega's and Salomón' consultations are read and appreciated. Pt remains SOB at rest although sternal and back pains hve resolved On antibiotics for presumed aspiration pneumonia. Additional history from patient and his daughter at the bedside. Pt recalls all events of the morning including changing the TV channel in his room at 12 noon. Then amnestic until arrival in ER. His called the daughter at 1:16 PM after finding pt unresponsive, in his chair, with vomitus and "gurgling" respirations. NEURO: Exam unchanged. Normal cognition Non-focal exam sig for absent AJ's and reduced sensation in the feet suggesting neuropathy. IMP: No evidence for CVA Cannot exclude an unwitnessed seizure, but doubt. (Ictus would have to have occurred close to Pt's last recall at noon and would be unlikely to cause respiratory depression 75 mins later unless, indirectly, due to aspiration of vomitus). Even if a seizure was the cause, one would not necessarily need to treat at this time. Would still consider arrythmia, cardiac ischemia, PE, etc as a more like etiology. Agree with continued telemetry and transfer for cardiac cath. Neuro f/u as out patient after cardiac evaluation. Thank you very much, José Hager MD
[2018-08-31] MEDS: methylPREDNISolone NA SUCC 40 MG/1 ML VIAL IVPUSH SCH ×4 (02:49→23:05)
[2018-08-31] MEDS: AMPICILLIN NA/SULBACTAM NA 3 GM in SODIUM CHLORIDE 100 ML IVPB SCH ×2 (02:49→09:35)
[2018-08-31] MEDS: ACETAMINOPHEN 325 MG TABLET (FP) PO PRN ×4 (02:58→23:05)
[2018-08-31] MEDS: CLOTRIMAZOLE 10 MG TROCHE (FP) PO SCH ×5 (06:25→23:12)
[2018-08-31] MEDS: ALBUTEROL SO4 2.5/IPRATROPIUM 0.5 INH SOL 3 ML VIAL.NEB. NEB SCH ×4 (08:30→20:23)
[2018-08-31] MEDS ORDERED: PT OWN MED DRAWER 7, Y5N ONE ×3 (09:27→23:11)
[2018-08-31] MEDS: PANTOPRAZOLE SODIUM 40 MG VIAL IVPUSH SCH ×2 (09:34→23:04)
[2018-08-31] MEDS: HEPARIN NA (PORCINE) 5,000 UNITS/ML 1ML VIAL SQ SCH ×2 (09:34→23:04)
--- NOTE | 2018-08-31 11:49 | PN ---
Progress Note, Physician Chief Complaint: Syncope History of Present Illness: NAD Seen by ID Received IV abx for pneumonia-change to Augmentin 1 tab BID EEG done- report pending? Troponins normalized Cr trending down Mild anemia - Current Medication List Current Medications: Active Medications Acetaminophen (Tylenol -) 650 mg PO Q6H PRN PRN Reason: PAIN LEVEL > 5 Last Admin: 08/31/18 09:48 Dose: 650 mg Albuterol/Ipratropium (Duoneb -) 1 amp NEB RQID [facility] Last Admin: 08/31/18 08:30 Dose: 1 amp Amoxicillin/Clavulanate Potassium (Augmentin - 875mg Tablet) 1 tab PO BID@0800, 1730 [facility] Clotrimazole (Mycelex Bennie's -) 10 mg PO 5XD [facility] Last Admin: 08/31/18 09:34 Dose: 10 mg Heparin Sodium (Porcine) (Heparin -) 5,000 unit SQ BID [facility] Last Admin: 08/31/18 09:34 Dose: 5,000 unit Methylprednisolone Sodium Succinate (Solu-Medrol -) 40 mg IVPUSH Q6H-IV [facility] Last Admin: 08/31/18 09:34 Dose: 40 mg Pantoprazole Sodium (Protonix Iv) 40 mg IVPUSH BID [facility] Last Admin: 08/31/18 09:34 Dose: 40 mg - Objective Vital Signs: Vital Signs Temperature 97.9 F 08/31/18 06:00 Pulse Rate 88 08/31/18 10:00 Respiratory Rate 18 08/31/18 10:00 Blood Pressure 136/96 08/31/18 10:00 O2 Sat by Pulse Oximetry (%) 95 08/31/18 10:00 Constitutional: Yes: Well Nourished, No Distress, Calm Cardiovascular: Yes: Regular Rate and Rhythm Respiratory: Yes: Regular Gastrointestinal: Yes: Normal Bowel Sounds, Soft Musculoskeletal: Yes: Muscle Weakness Edema: No Peripheral Pulses WNL: Yes Neurological: Yes: Alert, Oriented Psychiatric: Yes: Alert, Oriented Labs: CBC, BMP 08/28/18 06:20 08/28/18 06:20 INR, PTT INR 1.05 (0.83-1.09) 08/27/18 14:00 Problem List - Problems (1) Pneumonia Assessment/Plan: -CTA reviewed, LLL infiltrates -afebrile -WBC trendingdown -Seen by ID -D/C IV abx -start Augmentin 1 tab po BID x 7 days Code(s): J18.9 - PNEUMONIA, UNSPECIFIED ORGANISM (2) Syncope and collapse Assessment/Plan: -Seen by Cardiology and neurology -EEG done, results pending? -If EEG negative, pt will need cardiac cath Code(s): R55 - SYNCOPE AND COLLAPSE (3) Troponin level elevated Assessment/Plan: -trending down-normalized -Seen by Cardiology Code(s): R74.8 - ABNORMAL LEVELS OF OTHER SERUM ENZYMES (4) Anemia Assessment/Plan: -mild -monitor trend for now Code(s): D64.9 - ANEMIA, UNSPECIFIED Assessment/Plan see problem list DVT prophylaxis Physical therapy
--- NOTE | 2018-08-31 13:29 | PN ---
Progress Note, Physician Chief Complaint: No chest pain or events on tele History of Present Illness: 78 year old male with a PMH of COPD, hypothyroid, HLD, SVT s/p ablation years ago, cardiac cath done at that time showed normal coronary arteries, previous admission 2014 for syncope felt to be due to orthostatic hypotension now admitted after found unresponsive at home and received CPR by his son. Pt recovered mental status after arrival to the ER. Pt seen and examined today in nad. currently awake, alert, oriented. - Current Medication List Current Medications: Active Medications Acetaminophen (Tylenol -) 650 mg PO Q6H PRN PRN Reason: PAIN LEVEL > 5 Last Admin: 08/31/18 09:48 Dose: 650 mg Albuterol/Ipratropium (Duoneb -) 1 amp NEB RQID [facility] Last Admin: 08/31/18 12:28 Dose: 1 amp Amoxicillin/Clavulanate Potassium (Augmentin - 875mg Tablet) 1 tab PO BID@0800, 1730 [facility] Clotrimazole (Mycelex Bennie's -) 10 mg PO 5XD [facility] Last Admin: 08/31/18 09:34 Dose: 10 mg Heparin Sodium (Porcine) (Heparin -) 5,000 unit SQ BID [facility] Last Admin: 08/31/18 09:34 Dose: 5,000 unit Methylprednisolone Sodium Succinate (Solu-Medrol -) 40 mg IVPUSH Q6H-IV [facility] Last Admin: 08/31/18 09:34 Dose: 40 mg Pantoprazole Sodium (Protonix Iv) 40 mg IVPUSH BID [facility] Last Admin: 08/31/18 09:34 Dose: 40 mg - Objective Vital Signs: Vital Signs Temperature 97.9 F 08/31/18 06:00 Pulse Rate 88 08/31/18 10:00 Respiratory Rate 18 08/31/18 10:00 Blood Pressure 136/96 08/31/18 10:00 O2 Sat by Pulse Oximetry (%) 95 08/31/18 10:00 Constitutional: Yes: No Distress Neck: Yes: Supple Cardiovascular: Yes: Regular Rate and Rhythm, S1, S2. No: JVD, Murmur Respiratory: Yes: CTA Bilaterally Gastrointestinal: Yes: WNL Edema: No Labs: CBC, BMP 08/28/18 06:20 08/28/18 06:20 INR, PTT INR 1.05 (0.83-1.09) 08/27/18 14:00 Assessment/Plan 78 year old male with a PMH of COPD, hypothyroid, HLD, SVT s/p ablation years ago, cardiac cath done at that time showed normal coronary arteries, previous admission 2014 for syncope felt to be due to orthostatic hypotension now admitted after found unresponsive at home and received CPR by his son. Pt recovered mental status after arrival to the ER. Pt seen and examined today in nad. currently awake, alert, oriented. 08/30/18 Complaining of chest pain only with coughing. EKG no acute changes Troponins neg echo showed normal LV systolic function, no sig valvular abnl and no pericardial effusion Appreciate neurology note: does not believe seizure but cannot r/o. Plan for cardiac cath at [facility] on Sunday to evaluate for CAD. Labs tomorrow please
--- NOTE | 2018-08-31 15:02 | EKG ---
Test Reason : Blood Pressure : / mmHG Vent. Rate : 089 BPM Atrial Rate : 089 BPM P-R Int : 148 ms QRS Dur : 086 ms QT Int : 368 ms P-R-T Axes : 062 003 011 degrees QTc Int : 447 ms NORMAL SINUS RHYTHM NORMAL ECG WHEN COMPARED WITH ECG OF 27-AUG-2018 15:54, NO SIGNIFICANT CHANGE WAS FOUND Confirmed by MD Jamison Edward ([id number]) on 08/31/2018 3:02:07 PM Referred By: JAXON GOLD,[facility] Confirmed By:Mike Jamison MD
[2018-08-31] MEDS: AMOX TR/POT CLAV 875MG/125MG TABLETS (FP) PO SCH (17:19)
[2018-09-01] MEDS: methylPREDNISolone NA SUCC 40 MG/1 ML VIAL IVPUSH SCH ×4 (03:47→21:19)
[2018-09-01] MEDS ORDERED: PT OWN MED DRAWER 7, Y5N ONE ×2 (06:31→14:17)
[2018-09-01] MEDS: CLOTRIMAZOLE 10 MG TROCHE (FP) PO SCH ×5 (06:32→21:20)
[2018-09-01] MEDS: ALBUTEROL SO4 2.5/IPRATROPIUM 0.5 INH SOL 3 ML VIAL.NEB. NEB SCH ×4 (08:00→20:00)
[2018-09-01] MEDS: AMOX TR/POT CLAV 875MG/125MG TABLETS (FP) PO SCH ×2 (08:27→17:35)
[2018-09-01] MEDS: ACETAMINOPHEN 325 MG TABLET (FP) PO PRN ×2 (09:50→18:52)
[2018-09-01] MEDS: PANTOPRAZOLE SODIUM 40 MG VIAL IVPUSH SCH ×2 (09:51→21:19)
[2018-09-01] MEDS: HEPARIN NA (PORCINE) 5,000 UNITS/ML 1ML VIAL SQ SCH ×2 (09:51→21:20)
--- NOTE | 2018-09-01 12:24 | PN ---
Progress Note, Physician Chief Complaint: Syncope History of Present Illness: NAD Seen by ID Received IV abx for pneumonia-change to Augmentin 1 tab BID EEG done- report pending? Troponins normalized Cr trending down Mild anemia Seen by Cardiology - Current Medication List Current Medications: Active Medications Acetaminophen (Tylenol -) 650 mg PO Q6H PRN PRN Reason: PAIN LEVEL > 5 Last Admin: 09/01/18 09:50 Dose: 650 mg Albuterol/Ipratropium (Duoneb -) 1 amp NEB RQID [facility] Last Admin: 09/01/18 08:00 Dose: 1 amp Amoxicillin/Clavulanate Potassium (Augmentin - 875mg Tablet) 1 tab PO BID@0800, 1730 [facility] Last Admin: 09/01/18 08:27 Dose: 1 tab Clotrimazole (Mycelex Bennie's -) 10 mg PO 5XD [facility] Last Admin: 09/01/18 10:52 Dose: 10 mg Heparin Sodium (Porcine) (Heparin -) 5,000 unit SQ BID [facility] Last Admin: 09/01/18 09:51 Dose: 5,000 unit Methylprednisolone Sodium Succinate (Solu-Medrol -) 40 mg IVPUSH Q6H-IV [facility] Last Admin: 09/01/18 08:21 Dose: 40 mg Pantoprazole Sodium (Protonix Iv) 40 mg IVPUSH BID [facility] Last Admin: 09/01/18 09:51 Dose: 40 mg - Objective Vital Signs: Vital Signs Temperature 98 F 09/01/18 09:03 Pulse Rate 80 09/01/18 09:03 Respiratory Rate 18 09/01/18 09:03 Blood Pressure 148/93 09/01/18 09:03 O2 Sat by Pulse Oximetry (%) 95 09/01/18 10:00 Constitutional: Yes: Well Nourished, No Distress, Calm Cardiovascular: Yes: Regular Rate and Rhythm Respiratory: Yes: Regular Gastrointestinal: Yes: Normal Bowel Sounds, Soft Musculoskeletal: Yes: WNL Extremities: Yes: WNL Edema: No Peripheral Pulses WNL: Yes Neurological: Yes: Alert, Oriented Psychiatric: Yes: Alert, Oriented Labs: CBC, BMP 08/28/18 06:20 08/28/18 06:20 INR, PTT INR 1.05 (0.83-1.09) 08/27/18 14:00 Problem List - Problems (1) Pneumonia Assessment/Plan: -CTA reviewed, LLL infiltrates -afebrile -WBC trending down -Seen by ID -start Augmentin 1 tab po BID x 7 days Code(s): J18.9 - PNEUMONIA, UNSPECIFIED ORGANISM (2) Syncope and collapse Assessment/Plan: -Seen by Cardiology and neurology -EEG done, results pending? -plan for cardiac cath on Sunday, transfer to [facility] -Labs in AM Code(s): R55 - SYNCOPE AND COLLAPSE (3) Troponin level elevated Assessment/Plan: -trending down-normalized -Seen by Cardiology Code(s): R74.8 - ABNORMAL LEVELS OF OTHER SERUM ENZYMES (4) Anemia Assessment/Plan: -mild -monitor trend for now Code(s): D64.9 - ANEMIA, UNSPECIFIED Assessment/Plan see problem list DVT prophylaxis Physical therapy
--- NOTE | 2018-09-01 13:13 | PN ---
Progress Note, Physician Chief Complaint: No chest pain or sob No events on tele History of Present Illness: 78 year old male with a PMH of COPD, hypothyroid, HLD, SVT s/p ablation years ago, cardiac cath done at that time showed normal coronary arteries, previous admission 2014 for syncope felt to be due to orthostatic hypotension now admitted after found unresponsive at home and received CPR by his son. Pt recovered mental status after arrival to the ER. Pt seen and examined today in nad. currently awake, alert, oriented. - Current Medication List Current Medications: Active Medications Acetaminophen (Tylenol -) 650 mg PO Q6H PRN PRN Reason: PAIN LEVEL > 5 Last Admin: 09/01/18 09:50 Dose: 650 mg Albuterol/Ipratropium (Duoneb -) 1 amp NEB RQID [facility] Last Admin: 09/01/18 11:35 Dose: 1 amp Amoxicillin/Clavulanate Potassium (Augmentin - 875mg Tablet) 1 tab PO BID@0800, 1730 [facility] Last Admin: 09/01/18 08:27 Dose: 1 tab Clotrimazole (Mycelex Bennie's -) 10 mg PO 5XD [facility] Last Admin: 09/01/18 10:52 Dose: 10 mg Heparin Sodium (Porcine) (Heparin -) 5,000 unit SQ BID [facility] Last Admin: 09/01/18 09:51 Dose: 5,000 unit Methylprednisolone Sodium Succinate (Solu-Medrol -) 40 mg IVPUSH Q6H-IV [facility] Last Admin: 09/01/18 08:21 Dose: 40 mg Pantoprazole Sodium (Protonix Iv) 40 mg IVPUSH BID [facility] Last Admin: 09/01/18 09:51 Dose: 40 mg - Objective Vital Signs: Vital Signs Temperature 98 F 09/01/18 09:03 Pulse Rate 80 09/01/18 09:03 Respiratory Rate 18 09/01/18 09:03 Blood Pressure 148/93 09/01/18 09:03 O2 Sat by Pulse Oximetry (%) 95 09/01/18 10:00 Constitutional: Yes: No Distress Neck: Yes: Supple Cardiovascular: Yes: Regular Rate and Rhythm, S1, S2. No: JVD, Murmur Respiratory: Yes: CTA Bilaterally Gastrointestinal: Yes: WNL Edema: No Labs: CBC, BMP 08/28/18 06:20 08/28/18 06:20 INR, PTT INR 1.05 (0.83-1.09) 08/27/18 14:00 Problem List - Problems (1) Syncope and collapse Code(s): R55 - SYNCOPE AND COLLAPSE (2) Troponin level elevated Code(s): R74.8 - ABNORMAL LEVELS OF OTHER SERUM ENZYMES Assessment/Plan 78 year old male with a PMH of COPD, hypothyroid, HLD, SVT s/p ablation years ago, cardiac cath done at that time showed normal coronary arteries, previous admission 2014 for syncope felt to be due to orthostatic hypotension now admitted after found unresponsive at home and received CPR by his son. Pt recovered mental status after arrival to the ER. Pt seen and examined today in nad. currently awake, alert, oriented. 08/30/18 Complaining of chest pain only with coughing. EKG no acute changes Troponins neg echo showed normal LV systolic function, no sig valvular abnl and no pericardial effusion Appreciate neurology note: does not believe seizure but cannot r/o. Plan for cardiac cath at [facility] on Sunday to evaluate for CAD. Recheck labs. NPO after midnight
[2018-09-02] MEDS: methylPREDNISolone NA SUCC 40 MG/1 ML VIAL IVPUSH SCH ×2 (02:07→08:34)
[2018-09-02] MEDS: CLOTRIMAZOLE 10 MG TROCHE (FP) PO SCH ×3 (06:15→10:55)
[2018-09-02 07:04] LABS: BASO % 0.2 % (0-2.0); HEMATOCRIT 37.5 % (35.4-49); HEMOGLOBIN 12.1 GM/dL (11.7-16.9); LYMPH % 5.7 % (8-40); MCH 31.1 pg (25.7-33.7); MCHC 32.3 g/dl (32.0-35.9); MEAN CELL VOLUME 96.1 fl (80-96); MEAN PLT VOLUME 8.5 fl (7.5-11.1); MONO % 6.8 % (3.8-10.2); NEUT % 87.3 % (42.8-82.8); PLATELET COUNT 191 K/MM3 (134-434); RDW 13.8 % (11.9-15.9)
[2018-09-02 07:16] LABS: INR 1.04 (0.83-1.09); PROTHROMBIN TIME (PATIENT) 12.3 SEC (9.7-13.0)
[2018-09-02] MEDS: ALBUTEROL SO4 2.5/IPRATROPIUM 0.5 INH SOL 3 ML VIAL.NEB. NEB SCH ×2 (07:27→11:11)
[2018-09-02 07:39] LABS: ALBUMIN 2.8 g/dl (3.4-5.0); ALK PHOS 51 U/L (45-117); ANION GAP 9 MMOL/L (8-16); BILIRUBIN,TOTAL 0.6 mg/dL (0.2-1); BLOOD UREA NITROGEN 36 mg/dL (7-18); CALCIUM 8.3 mg/dL (8.5-10.1); CHLORIDE 103 mmol/L (98-107); CO2 29 mmol/L (21-32); CREATININE 0.8 mg/dL (0.55-1.3); GLUCOSE,RANDOM 135 mg/dL (74-106); POTASSIUM 3.8 mmol/L (3.5-5.1); SGOT/AST 30 U/L (15-37); SGPT/ALT 48 U/L (13-61); SODIUM 141 mmol/L (136-145); TOT PROT 6.2 g/dl (6.4-8.2)
[2018-09-02] MEDS ORDERED: PT OWN MED DRAWER 7, Y5N ONE ×2 (07:46→10:47)
[2018-09-02 07:56] VITALS: BP 143/96; PULSE 93; TEMP 98.2
[2018-09-02] MEDS: AMOX TR/POT CLAV 875MG/125MG TABLETS (FP) PO SCH (08:35)
[2018-09-02] MEDS: HEPARIN NA (PORCINE) 5,000 UNITS/ML 1ML VIAL SQ SCH (10:44)
[2018-09-02] MEDS: PANTOPRAZOLE SODIUM 40 MG VIAL IVPUSH SCH (10:51)
== END 2018-09-02 13:18 | disposition short-term general hospital (02) | DRG 312 ==
LOC: JER 13:59 → JERBED 15:34 → J4S 08-28 01:14
PROVIDERS: ADMIT Family Medicine; ATTEND Family Medicine
DX: R55 Syncope and collapse (principal); J18.9 Pneumonia, unspecified organism; R07.89 Other chest pain; J44.9 Chronic obstructive pulmonary disease, unspecified; D64.9 Anemia, unspecified; E78.5 Hyperlipidemia, unspecified; E03.9 Hypothyroidism, unspecified; I10 Essential (primary) hypertension
CPT/HCPCS: 36415; 70450-TC; 71045-TC-FY; 71101-TC-FY; 71275-TC; 74174-TC; 80048; 80053; 80061; 81003; 81015; 82465; 82550; 82553; 82962; 83036; 83718; 83721; 83735; 83880; 84100; 84478; 84484; 85025; 85610; 86850; 86900; 86901; 87040; 87086; 87899; 93005; 93010; 93306-TC; 94640; 95816; 97116-GP; 97161-GP; 99285-25; J1644; J7030

== ENCOUNTER 2020-05-19 21:08 | Inpatient (IN) | payer OTHER, BC ==
--- NOTE | 2020-05-19 22:46 | PDOC ---
History of Present Illness - General Chief Complaint: Altered Mental Status Stated Complaint: ALTERED MENTAL STATUS Time Seen by Provider: 05/19/20 22:16 History Source: Patient, Family Exam Limitations: No Limitations - History of Present Illness Initial Comments: 05/19/20 22:45 80M PMH HTN, HLD, COPD, hypothyroidism BIBEMS after a 10 minute episode of nonsensical speech at home, witnessed by daughter at bedside. Pt states he was conscious and thought he was being coherent. Episode occurred around 8:30pm. Pt is back to baseline per daughter. Had a syncopal episode a few years back that involved incoherent speech. Pt did not have LOC this time. Denies visual or auditory changes, numbness, tingling, weakness. Denies cp/sob, f/c, n/v, headache, lightheadedness, dizziness, abd pain, dysuria. Neg CVA hx. NKDA. tPA Exclusion Checklist 0-3hr - Time Elapsed Date last known well: 05/19/20 Time last known well: 20:30 Elaspsed time: Day(s) and 9 Hour(s) and 28 Minutes - Thrombolytic Therapy Candidate Is the patient eligible for Thrombolytic Therapy?: No - Relative Exclusion Criteria 0-3h Stroke severity too mild (non-disabling): Yes - Ineligibility reason(s) Reasons No tPA given: See reason(s) noted above NIH Stroke Scale - Last Known Well Date/Time & Onset Date Last Known Well: 05/19/20 Time Last Known Well: 20:30 - Initial Evaluation Level of consciousness: Alert Ask patient the month and their age: Answers both correctly Ask patient to open & close eyes; make fist and let go: Obeys both correctly Best gaze (horizontal eye movement): Normal Visual field testing: No visual field loss Facial paresis (Show teeth/raise eyebrows/close eyes tight): Normal symmetrical movement Motor Function: Left Arm: Normal Motor Function: Right Arm: Normal (extends arm 90 (or 45) degrees for 10 seconds without drift Motor Function: Left Leg: Normal (extends leg 30 degrees for 5 seconds without drift) Motor Function: Right Leg: Normal (extends leg 30 degrees for 5 seconds without drift) Limb Ataxia: No ataxia Sensory(Use pinprick test arms,legs,trunk,face/side to side): Normal Best language (Describe picture, name items, read sentences): No Aphasia Dysarthria (read several words): Normal articulation Extinction and Inattention: No abnormality - Total Score NIH Stroke Scale Score: 0 Past History - Medical History Allergies/Adverse Reactions: Allergies Allergy/AdvReac Type Severity Reaction Status Date / Time No Known Allergies Allergy Verified 08/27/18 14:12 Home Medications: Ambulatory Orders Levothyroxine [Synthroid -] 25 mcg PO ACBK 02/14/15 Simvastatin [Zocor -] 40 mg PO HS 02/14/15 Tiotropium [place] [Spiriva] 1 inh IH DAILY 02/14/15 Tamsulosin HCl 0.4 mg PO DAILY #30 cap.er.24h 12/13/16 Anemia: No Asthma: No Cancer: No Cardiac Disorders: No CVA: No COPD: Yes (COPD) CHF: No Dementia: No Diabetes: No GI Disorders: No Disorders: No HTN: No Hypercholesterolemia: Yes Liver Disease: No Seizures: No Thyroid Disease: Yes (HYPO) - Surgical History Abdominal Surgery: No Appendectomy: No Cardiac Surgery: Yes (SVT Ablation) Cholecystectomy: No Lung Surgery: No Neurologic Surgery: No Orthopedic Surgery: No - Psycho-Social/Smoking History Smoking Status: No Smoking History: Unknown if ever smoked Years of Tobacco Use: 40 Have you smoked in the past 12 months: No Number of Cigarettes Smoked Daily: 20 If you are a former smoker, when did you quit?: 15 YRS AGO - Substance Abuse Hx (Audit-C & DAST Scrn) How often the patient has a drink containing alcohol: Never Score: In Men: 4 or > Positive; In Women: 3 or > Positive: 0 Screen Result (Pos requires Nsg. Audit-10AR): Negative In the last yr the pt used illegal drug/Rx for NonMed reason: No Score: Yes response is considered Positive: 0 Screen Result (Positive result requires Nsg. DAST-10): Negative Review of Systems - Review of Systems Comments:: 05/20/20 05:55 CONSTITUTIONAL: Denies F / C HEENT: Denies headache, lightheadedness, dizziness, changes in vision / hearing, diplopia, blurry vision, sore throat, rhinorrhea RESP: Denies SOB, cough, orthopnea, ESQUEDA CARD: Denies chest pain, palpitations GI: Denies N / V / D, abdominal pain, bloody stool, inability to tolerate PO : Denies dysuria, hematuria, frequency NEURO: + transient altered mental status. Denies numbness, tingling, weakness MSK: Denies back pain SKIN: Denies rashes *Physical Exam - Vital Signs Last Vital Signs Temp Pulse Resp BP Pulse Ox 98.8 F 91 H 16 124/77 96 05/19/20 21:40 05/19/20 21:40 05/19/20 21:40 05/19/20 21:40 05/19/20 21:40 - Physical Exam 05/20/20 05:56 GEN: Well appearing, NAD, comfortable. AAOx3. HEENT: NC/AT, CN II-XII grossly intact, EOMI, PERRLA. No facial asymmetry. Moist mucous membranes; nonerythematous posterior oropharynx w/o exudates. Normal voice. Supple neck, FROM CV: S1/S2, RRR, no m/r/g LUNG: CTAB, no wheezes, crackles, rales, rhonchi. GI: Soft, ndnt, +BS, no guarding, no rebound. MSK: No obvious deformities of all extremities. SKIN: Warm, dry PSYCH: Normal mood and affect. NEURO: Moving all extremities well. 5/5 UE strength b/l. 5/5 LE strength b/l. Sensation symmetric and intact throughout. No ataxia on FTN or heel-ayers. No pronator drift. No romberg. Ambulates w/ appropriate gait ED Treatment Course - LABORATORY CBC & Chemistry Diagram: 05/19/20 23:39 05/19/20 23:39 - RADIOLOGY Radiology Studies Ordered: Category Date Time Status HEAD CT WITHOUT CONTRAST [CT] Stat CT Scan 05/19/20 22:44 Ordered CHEST X-RAY PORTABLE* [RAD] Stat Radiology 05/19/20 22:44 Ordered Medical Decision Making - Medical Decision Making 05/20/20 05:56 80M BIBEMS for transient episode of incoherent speech lasting 10 minutes in which patient was conscious and aware. Neuro intact, NIHSS 0. concern for TIA TIA/CVA set f/u labs, CXR, CT admit stroke unit 05/20/20 01:41 informed there is an issue with CT image upload to [facility] delaying read. labs reviewed; hemolysis in sample falsely elevating K EKG 2334 NSR normal axis and intervals, no MADDY/D; no TWI. Reassuring EKG 05/20/20 03:55 IOC Report: EXAM: HEAD CT WITHOUT CONTRAST HISTORY: Mental status changes COMPARISON: None. FINDINGS: The ventricular system is midline and nondilated. The sulcal pattern is normal for the patient's age. There is no bleed, mass, extra-axial fluid c ollection or mass effect. No skull fracture or skull lesion is identified. There is a left maxillary sinus air-fluid level with mucosal thickening, hypoplasia and sclerosis of the sinus strickland indicating chronic sinusitis. The other visualized paranasal sinuses and mastoid air cells are clear. IMPRESSION: Chronic left maxillary sinusitis. No acute intracranial pathology THIS DOCUMENT HAS BEEN ELECTRONICALLY SIGNED Aashish Coyle MD 05/20/2020 03:47 EST - admitted Discharge - Discharge Information Problems reviewed: Yes Clinical Impression/Diagnosis: TIA (transient ischemic attack) Condition: Fair - Admission Yes - Follow up/Referral - Patient Discharge Instructions - Post Discharge Activity
[2020-05-19] MEDS ORDERED: SODIUM CHLORIDE 1,000 ML IV SCH (23:15)
--- NOTE | 2020-05-19 23:47 | PDOC ---
Documentation entered by Jasson Torres SCRIBE, acting as scribe for Radha Scanlon DO. Radha Scanlon, DO: This documentation has been prepared by the Albertina ortega Nirvannie, SCRIBE, under my direction and personally reviewed by me in its entirety. I confirm that the documentation accurately reflects all work, treatment, procedures, and medical decision making performed by me. Attending Attestation - Resident Resident Name: WayneJosé - ED Attending Attestation I have performed the following: I have examined & evaluated the patient, The case was reviewed & discussed with the resident, I agree w/resident's findings & plan, Exceptions are as noted - HPI HPI: 05/19/20 23:53 The patient is an 80 year old male with a significant past medical history of HLD, COPD (pending supplemental O2, chronic cough), and hypothyroidism who presents to the ED s/p 10 min episode of word salad described as speaking in gibberish. As per the patient's daughter at the bedside, at approximately 8:30pm after dinner she went to check in on him and he began to experience word salad. Patient notes he believed he was speaking coherently the entire time. Daughter notes the entire episode spanned 10 min and by the time EMS arrived his symptoms resolved spontaneously. Patient and daughter denies any facial droop, weakness, or changes in strength/sensation. Patient was had an outpatient CTA done yesterday (see below). IMPRESSION: No CT evidence of pulmonary embolism. There is no evidence of infiltrate or pleural effusion. Advanced centrilobular emphysema is again noted. Interval resolution of a left basilar infiltrate is seen in comparison to CT performed on 08/27/2018. There is partial imaging of an infrarenal aortic aneurysm. On the basis of partial imaging this aneurysm measures at least 3 cm in diameter. A 3 cm infrarenal aortic aneurysm was identified on an abdomen/pelvis CT study of 08/27/2018. Correlation with follow-up sonography or CT is suggested. A moderate to marked chronic T8 vertebral body compression fracture is noted which appears somewhat more compressed in comparison to the prior chest CT exam. Mild stable chronic T4 and T7 vertebral body compression fractures. 3 month follow-up CT is suggested in regards to the previously described small bilateral nonspecific lower lobe pulmonary nodules. - Physicial Exam PE: 05/19/20 23:55 Constitutional: Awake, alert, oriented. No acute distress. Head: Normocephalic. Atraumatic Eyes: PERRL. EOMI. Conjunctivae are not pale. ENT: Mucous membranes are moist and intact. Posterior pharynx without exudates or erythema. Uvula midline. Neck: Supple. Full ROM. No lymphadenopathy. Cardiovascular: Regular rate. Regular rhythm. S1, S2 regular. Distal pulses are 2+ and symmetric. Pulmonary/Chest: No evidence of respiratory distress. Clear to auscultation bilaterally No wheezing, rales or rhonchi. Abdominal: Soft and non-distended. There is no tenderness. No rebound, guarding or rigidity. No organomegaly. No palpable masses. Good bowel sounds. Back: No CVA tenderness. Musculoskeletal: No edema. No cyanosis. No clubbing. Full range of motion in all extremities. No calf tenderness. Radial/pedal pulses are intact and 2+ bilaterally Skin: Skin is warm and dry. No petechiae. No purpura. Neurological: Alert and oriented to person, place, and time. Cranial nerves II-XII are grossly intact. Normal speech. Strength is grossly symmetric. No sensory deficits. Psychiatric: Good eye contact. Normal interaction, affect and behavior. - Medical Decision Making 05/19/20 23:44 a/p: 80yo male bib his daughter for eval of a 10 min episode which has since resolved of slurred/jumbled speech -the patients daughter/son recognized the slurred speech, which resolved prior to the ambulance being called -pt denies all symptoms -no facial droop, paresthesias, weakness, tingling, sensory changes -currently aaox3 -NIHSS = 0 -no tpa given rapid resolution of symptoms -will send labs, cxr, ekg, head ct -will admit for MRI and neuro eval if head ct neg -pt currently without focal neuro symptoms 05/20/20 02:[address] head reviewed by me without acute bleeding or mass pending official ct read resident will discuss with neurology for tia pt will need obs/admission for tia workup Heart Score/ECG Review - ECG Intrepretation Comment:: 05/19/20 23:44 sinus at 83, nl axis, nl interval, no acute st/t wave findings Discharge - Discharge Information Problems reviewed: Yes Clinical Impression/Diagnosis: TIA (transient ischemic attack) Condition: Fair - Admission Yes - Follow up/Referral Referrals: Armand Lau MD [Primary Care Provider] - - Patient Discharge Instructions - Post Discharge Activity
[2020-05-19 23:49] LABS: EOS % 2.9 % (0-4.5); HEMATOCRIT 35.4 % (35.4-49); HEMOGLOBIN 11.8 GM/dL (11.7-16.9); LYMPH % 17.9 % (8-40); MCH 32.1 pg (25.7-33.7); MCHC 33.3 g/dl (32.0-35.9); MEAN CELL VOLUME 96.3 fl (80-96); MEAN PLT VOLUME 7.8 fl (7.5-11.1); MONO % 8.7 % (3.8-10.2); NEUT % 69.5 % (42.8-82.8); PLATELET COUNT 319 K/MM3 (134-434); RBC 3.68 M/mm3 (4.00-5.60); RDW 14.6 % (11.9-15.9); WHITE BLOOD COUNT 8.5 K/mm3 (4.0-10.0)
[2020-05-19 23:53] LABS: INR 1.25 (0.83-1.09); PROTHROMBIN TIME (PATIENT) 14.8 SEC (9.7-13.0)
[2020-05-19 23:56] LABS: ACTIVATED PTT 29.5 SECONDS (25.2-36.5)
[2020-05-20 00:11] LABS: ALBUMIN 3.3 g/dl (3.4-5.0); ALK PHOS 85 U/L (45-117); ANION GAP 3 MMOL/L (8-16); BILIRUBIN,TOTAL 0.4 mg/dL (0.2-1); CALCIUM 8.8 mg/dL (8.5-10.1); CHLORIDE 108 mmol/L (98-107); CO2 28 mmol/L (21-32); CREATININE 1.1 mg/dL (0.55-1.3); GLUCOSE,RANDOM 106 mg/dL (74-106); POTASSIUM 5.5 mmol/L (3.5-5.1); SGOT/AST 34 U/L (15-37); SGPT/ALT 24 U/L (13-61); SODIUM 139 mmol/L (136-145); TOT PROT 7.2 g/dl (6.4-8.2)
--- NOTE | 2020-05-20 04:55 | HP ---
CHIEF COMPLAINT: here from home for "gibberish" speech and was incoherant for about a 10 minute span PCP:Dr. Lau Bending Roll Operator: Dr. Steiner Supply Chain Generalist: Dr. Samano at [facility] HISTORY OF PRESENT ILLNESS: Mr. Amos is an 80 year old male with a significant past medical history of hyperlipidemia, BPH, COPD (pending supplemental O2, chronic cough),hypothyroidism and syncopal episode 2 years ago , normal EF no signi ficant valvular disease by echo in 2018, SVT s/p ablation years ago, cardiac cath done at that time which showed normal coronary arteries who presented to the ED after having a 10 minute episode of word salad described as speaking in gibberish. As per the patient's daughter as reported in ER note at approximately 8:30pm after dinner she went to check in on him and he began to experience word salad. Patient stated he believed he was speaking coherently the entire time. Daughter notes the entire episode spanned 10 minutes and by the time EMS arrived his symptoms resolved spontaneously. Patient and daughter denies any facial droop, weakness, or changes in strength/sensation. Patient had an outpatient CTA of chest done yesterday which was ordered by his Bending Roll Operator for symptoms of shortness of breath and showed no evidence of pulmonary embolism, infiltrate or pleural efussion (results as below). Patient reported he takes eliquis but not noted in his med rec. He denies having history of atrial fibrillation, DVT/PE or thrombus upon questioning. In the ER he now has resolved symptoms that resolved spontaneously as reported above. He has no residual neurological deficits on clinical exam. He is hemodynamically stable, bp normotensive, afebrile, no evidence of hypoxia or tachycardia. Lab findings notable for a normal troponin,and hyperkalemia(K+ 5.5). CT scan of head was negative for infarct or hemorrhage. CTChest 05/19/2020(done in the outpatient setting) IMPRESSION: No CT evidence of pulmonary embolism. There is no evidence of infiltrate or pleural effusion. Advanced centrilobular emphysema is again noted. Interval resolution of a left basilar infiltrate is seen in comparison to CT performed on 08/27/2018. There is partial imaging of an infrarenal aortic aneurysm. On the basis of partial imaging this aneurysm measures at least 3 cm in diameter. A 3 cm infrarenal aortic aneurysm was identified on an abdomen/pelvis CT study of 08/27/2018. Correlation with follow-up sonography or CT is suggested. A moderate to marked chronic T8 vertebral body compression fracture is noted which appears somewhat more compressed in comparison to the prior chest CT exam. Mild stable chronic T4 and T7 vertebral body compression fractures. 3 month follow-up CT is suggested in regards to the previously described small bilateral nonspecific lower lobe pulmonary nodules. Recent Travel: denies PAST MEDICAL HISTORY: BPH hypothyroidism COPD/emphysema hyperlipidemia PAST SURGICAL HISTORY: denies Social History: Smoking:former smoker, quit >15 years ago Alcohol:no Drugs: no Family History: noncontributory Allergies No Known Allergies Allergy (Verified 08/27/18 14:12) HOME MEDICATIONS: Home Medications Medication Instructions Recorded Levothyroxine [Synthroid -] 25 mcg PO ACBK 02/14/15 Simvastatin [Zocor -] 40 mg PO HS 02/14/15 Tiotropium Vendor [Spiriva] 1 inh IH DAILY 02/14/15 Tamsulosin HCl 0.4 mg PO DAILY #30 cap.er.24h 12/13/16 REVIEW OF SYSTEMS CONSTITUTIONAL: Absent: fever, chills, diaphoresis, generalized weakness, malaise, loss of appetite, weight change HEENT: Absent: rhinorrhea, nasal congestion, throat pain, throat swelling, difficulty swallowing, mouth swelling, ear pain, eye pain, visual changes CARDIOVASCULAR: Absent: chest pain, syncope, palpitations, irregular heart rate, lightheadedness, peripheral edema RESPIRATORY: Absent: chronic cough, shortness of breath, dyspnea with exertion, orthopnea, wheezing, stridor, hemoptysis GASTROINTESTINAL: Absent: abdominal pain, abdominal distension, nausea, vomiting, diarrhea, constipation, melena, hematochezia GENITOURINARY: Absent: dysuria, frequency, urgency, hesitancy, hematuria, flank pain, genital pain MUSCULOSKELETAL: Absent: myalgia, arthralgia, joint swelling, back pain, neck pain SKIN: Absent: rash, itching, pallor HEMATOLOGIC/IMMUNOLOGIC: Absent: easy bleeding, easy bruising, lymphadenopathy, frequent infections ENDOCRINE: Absent: unexplained weight gain, unexplained weight loss, heat intolerance, cold intolerance NEUROLOGIC: Absent: headache, focal weakness or paresthesias, dizziness, unsteady gait, seizure, mental status changes, bladder or bowel incontinence PSYCHIATRIC: Absent: anxiety, depression, suicidal or homicidal ideation, hallucinations. PHYSICAL EXAMINATION Vital Signs - 24 hr 05/19/20 21:40 Temperature 98.8 F Pulse Rate 91 H Respiratory 16 Rate Blood Pressure 124/77 O2 Sat by Pulse 96 Oximetry (%) General no acute distress Vital signs reviewed blood pressure normotensive afebrile Neck no JVD Neuro awake alert and oriented to person place and time speech clear no facial droop, b/l hand grasp present, strong and equal moving upper and lower extremities strong and equal Lungs CTA nonlabored breathing effort no wheezing no rales Heart s1s2 rate regular no murmur appreciated Abdomen soft nontender nondistended Extremities warm on palpation no pitting edema no cyanosis Mood calm cooperative Laboratory Results - last 24 hr 05/19/20 05/19/20 05/19/20 23:39 23:39 23:39 WBC 8.5 RBC 3.68 L Hgb 11.8 Hct 35.4 MCV 96.3 H MCH 32.1 MCHC 33.3 RDW 14.6 Plt Count 319 MPV 7.8 Absolute Neuts (auto) 5.9 Neutrophils % 69.5 D Lymphocytes % 17.9 D Monocytes % 8.7 Eosinophils % 2.9 D Basophils % 1.0 D Nucleated RBC % 0 PT with INR 14.80 H INR 1.25 H PTT (Actin FS) 29.5 Sodium 139 Potassium 5.5 H Chloride 108 H Carbon Dioxide 28 Anion Gap 3 L BUN 18.0 Creatinine 1.1 Est GFR (CKD-EPI)AfAm 72.07 Est GFR (CKD-EPI)NonAf 62.19 Random Glucose 106 Calcium 8.8 Total Bilirubin 0.4 AST 34 ALT 24 Alkaline Phosphatase 85 Creatine Kinase 77 Troponin I < 0.02 Total Protein 7.2 Albumin 3.3 L Triglycerides Cholesterol Total LDL Cholesterol HDL Cholesterol 05/19/20 23:39 WBC RBC Hgb Hct MCV MCH MCHC RDW Plt Count MPV Absolute Neuts (auto) Neutrophils % Lymphocytes % Monocytes % Eosinophils % Basophils % Nucleated RBC % PT with INR INR PTT (Actin FS) Sodium Potassium Chloride Carbon Dioxide Anion Gap BUN Creatinine Est GFR (CKD-EPI)AfAm Est GFR (CKD-EPI)NonAf Random Glucose Calcium Total Bilirubin AST ALT Alkaline Phosphatase Creatine Kinase Troponin I Total Protein Albumin Triglycerides 65 Cholesterol 121 Total LDL Cholesterol 50 HDL Cholesterol 58 ASSESSMENT/PLAN: In summary this Mr. Amos is an 80 year old male with a significant past medical history of HLD, BPH, COPD (pending supplemental O2, chronic cough), hypothyroidism , normal EF, no significant valvular disease by echo in 2018, SVT s/p ablation years ago, cardiac cath done at that time which showed normal coronary arteries and syncopal episode 2 years ago who was found to be incoherant and speech was noted to be gibberish by his family. His symptoms are concerning for TIA. CT scan of head demonstrated no acute findings and was negative for bleed or infarct. Patient is being admitted to telemetry for further cardiac monitoring and neurological evaluation to exclude CVA. 1. transient ischemic attack /rule out CVA resolved symptoms CT head negative Neurology consulted- Dr. Hager MRA of brain w/woc ordered check carotid US UA pending monitor on telemetry for atrial fib(patient reports he takes eliquis, but not in his med rec, this will need to be clarified in am, will request records from his primary Supply Chain Generalist, no documented history of atrial fibrillation on prior hospitalziation records or that he takes eliquis ) trop negative Cta of chest 05/19 negative for PE c/w asa and statin therapy 2. hyperkalemia potassium 5.5 kayexalate 15gm ordered once monitor for BM and will repeat BMP today at 10am monitor on telemetry for ventricular ectopy 3.hyperlipidemia TC 121, LDL 50, HDL 58,triglycerides 65 LFT's normal c/w statin therapy 4.BPH c/w tamulosisn 5.COPD no acute exacerbation reported having SOB on walking,no hypoxia or tachycardia cta chest 05/19/2020 negative for PE, infiltrate or pleural effusion (results as above) pulmonary- Dr. Steiner consulted c/w spirrodríguez 6.hypothyroiism check TSH c/w synthroid 7. R/O COVID low suspicion follow up on COVID nasal swab(sent 05/20) maintain strict droplet and contact isolation precautions maintain o sat >90 % DVT Prophylaxis lovenox 30mg daily SCD's FEN no IVF indicated BMP daily, monitor electrolytes closely low cholesterol/sodium diet Visit type - Emergency Visit Emergency Visit: Yes ED Registration Date: 05/20/20 Care time: The patient presented to the Emergency Department on the above date and was hospitalized for further evaluation of their emergent condition. - New Patient This patient is new to me today: Yes Date on this admission: 05/20/20 - Critical Care Critical Care patient: No
[2020-05-20] MEDS ORDERED: SODIUM POLYSTYRENE SULFONATE 15 GM/60 ML BOTTLE PO ONE (05:15)
[2020-05-20] MEDS ORDERED: LEVOTHYROXINE NA 25 MCG TABLET (FP) ONE (07:33)
[2020-05-20] MEDS: LEVOTHYROXINE NA 25 MCG TABLET (FP) PO SCH (07:36)
[2020-05-20 08:05] LABS: BLOOD UREA NITROGEN 16.4 mg/dL (7-18); CALCIUM 8.4 mg/dL (8.5-10.1)
[2020-05-20] MEDS ORDERED: ENOXAPARIN NA (PORCINE) 40 MG/0.4 ML DISP.SYRIN SQ SCH (10:00)
[2020-05-20] MEDS ORDERED: PATIENT'S OWN MEDICATION (NON-FORMULARY) (Tiotropium Bromide [Spiriva] 1 INH) IH SCH (10:00)
[2020-05-20] MEDS ORDERED: TAMSULOSIN HCL 0.4 MG CAP ONE (10:05)
[2020-05-20] MEDS ORDERED: ENOXAPARIN NA (PORCINE) 40 MG/0.4 ML DISP.SYRIN SQ ONE (10:05)
[2020-05-20] MEDS: TAMSULOSIN HCL 0.4 MG CAP PO SCH (10:07)
--- NOTE | 2020-05-20 10:45 | CON.CARD ---
Consult Consult Specialty:: Cardiology Referred by:: Sid Reason for Consultation:: Transient mental status changes - History of Present Illness Chief Complaint: Transient confusion History of Present Illness: The patient is an 81-year-old man, mentally intact, with a history of hypertension, hyperlipidemia, COPD, syncope 2014, SVT ablation, Paroxysmal atrial fibrillation on Eliquis,who on 08/27/2018 was found unresponsive by his son and received CPR. An echocardiogram on 08/28/2018 showed normal left ventricular ejection fraction without significant valvular abnormalities. The pulmonary embolus and aortic dissection were also ruled out at that time. Normal coronary arteries on cardiac catheterization The patient has an implantable loop recorder since that event. The patient is now admitted with transient confusion and incoherence. He made no sense. As per the family the symptoms lasted approximately 10 minutes and resolved completely. The patient is currently comfortable and symptom-free. Back to his usual. Oriented x3. The patient denied chest pains or shortness of breath. No palpitations. He is in sinus rhythm. 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 Cardio/Vascular: Yes: AFIB, HTN, Hyperlipdemia, Other (Syncope) Pulmonary: Yes: COPD Endocrine: Yes: Hypothyroidism Additional Medical History: svt ablation years ago - Past Surgical History Past Surgical History: Yes: Hernia Repair - Alcohol/Substance Use Hx Alcohol Use: No - Smoking History Smoking history: Unknown if ever smoked Have you smoked in the past 12 months: No Aproximately how many cigarettes per day: 20 If you are a former smoker, when did you quit?: 15 YRS AGO - Social History Usual Living Arrangement: With Spouse ADL: Independent 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 History of Recent Travel: No Home Medications - Allergies Allergies/Adverse Reactions: Allergies Allergy/AdvReac Type Severity Reaction Status Date / Time No Known Allergies Allergy Verified 08/27/18 14:12 - Home Medications Home Medications: Ambulatory Orders Levothyroxine [Synthroid -] 25 mcg PO ACBK 02/14/15 Simvastatin [Zocor -] 40 mg PO HS 02/14/15 Tiotropium Red[place] [Spiriva] 1 inh IH DAILY 02/14/15 Tamsulosin HCl 0.4 mg PO DAILY #30 cap.er.24h 12/13/16 Review of Systems - Review of Systems Constitutional: reports: No Symptoms Eyes: reports: No Symptoms HENT: reports: No Symptoms Neck: reports: No Symptoms Cardiovascular: reports: No Symptoms Respiratory: reports: No Symptoms Gastrointestinal: reports: No Symptoms Genitourinary: reports: No Symptoms Breasts: reports: No Symptoms Reported Musculoskeletal: reports: No Symptoms Integumentary: reports: No Symptoms Neurological: reports: No Symptoms Endocrine: reports: No Symptoms Hematology/Lymphatic: reports: No Symptoms Psychiatric: reports: No Symptoms Vital Signs: Vital Signs Temperature 98.6 F 05/20/20 07:45 Pulse Rate 74 05/20/20 08:41 Respiratory Rate 16 05/20/20 07:45 Blood Pressure 137/95 05/20/20 07:45 O2 Sat by Pulse Oximetry (%) 99 05/20/20 08:41 Constitutional: Yes: Well Nourished, No Distress, Calm Eyes: Yes: WNL, Conjunctiva Clear, EOM Intact HENT: Yes: WNL, Atraumatic, Normocephalic Neck: Yes: WNL, Supple, Trachea Midline Respiratory: Yes: WNL, Regular, CTA Bilaterally Gastrointestinal: Yes: WNL, Normal Bowel Sounds, Soft Renal/: Yes: WNL Cardiovascular: Yes: WNL, Regular Rate and Rhythm JVD: No Carotid Bruit: No PMI: Non-Displaced Heart Sounds: Yes: S1, S2 Murmur: Yes: Systolic Murmur, Grade 2 Musculoskeletal: Yes: WNL Extremities: Yes: WNL Edema: No Peripheral Pulses: 1+ Left Carotid, 1+ Right Carotid, 1+ Left Femoral, 1+ Right Femoral, 1+ Left Popliteal, 1+ Right Popliteal, 1+ Left Doralis Pedis, 1+ Right Dorsalis Pedis Integumentary: Yes: WNL Neurological: Yes: WNL, Alert, Oriented ...Motor Strength: WNL Psychiatric: Yes: WNL, Alert, Oriented - Other Data Labs, Other Data: CBC, BMP 05/19/20 23:39 05/20/20 06:34 INR, PTT INR 1.25 (0.83-1.09) H 05/19/20 23:39 Troponin, BNP 05/19/20 23:39 Troponin I < 0.02 Troponin, BNP 05/19/20 23:39 Troponin I < 0.02 Assessment/Plan The patient is an 81-year-old man, mentally intact, with a history of hypertension, hyperlipidemia, COPD, syncope 2014, SVT ablation, Paroxysmal atrial fibrillation on Eliquis,who on 08/27/2018 was found unresponsive by his son and received CPR. An echocardiogram on 08/28/2018 showed normal left ventricular ejection fraction without significant valvular abnormalities. The pulmonary embolus and aortic dissection were also ruled out at that time. Normal coronary arteries on cardiac catheterization The patient has an implantable loop recorder since that event. The patient is now admitted with transient confusion and incoherence. He made no sense. As per the family the symptoms lasted approximately 10 minutes and resolved completely. The patient is currently comfortable and symptom-free. Back to his usual. Oriented x3. The patient denied chest pains or shortness of breath. No palpitations. He is in sinus rhythm. There is no evidence of ischemia nor acute coronary syndrome. No CHF. No arrhythmias documented at this point. The patient has history of paroxysmal atrial fibrillation which was documented [address] [facility] at the time of his syncopal event. Not clear if the device is still functional. Would continue Eliquis for paroxysmal atrial fibrillation if the patient has been taking it. The patient may safely undergo an MRI of the brain if deemed necessary. The loop recorder is compatible with MRI. There is no need for further inpatient cardiac work-up in this setting. Please arrange for an outpatient follow-up visit with Dr. Samano within a week of discharge. Please do not hesitate to call us PRN. Cardiac stable.
[2020-05-20] MEDS ORDERED: PT OWN MED DRAWER 7, Y5N ONE (10:48)
[2020-05-20] MEDS: TIOTROPIUM BROMIDE 2.5 MCG (SPIRIVA) RESPIMAT INHALER IH SCH (10:49)
[2020-05-20 11:32] LABS: EPI CELLS 21 /uL (0-25.1); HYALINE CASTS 5 /uL (0-3.1); URINE APPEARANCE CLEAR; URINE BACTERIA 84 /uL (0-1359); URINE BILIRUBIN NEGATIVE (NEGATIVE); URINE COLOR YELLOW; URINE GLUCOSE (UA) NEGATIVE (NEGATIVE); URINE KETONE NEGATIVE (NEGATIVE); URINE LEUK ESTERASE TRACE (NEGATIVE); URINE NITRITE NEGATIVE (NEGATIVE); URINE PROTEIN NEGATIVE (NEGATIVE); URINE RBC 9 /uL (0-23.9); URINE UROBILINOGEN 0.2 mg/dL (0.2-1.0); URINE WBC 18 /uL (0-25.8)
--- NOTE | 2020-05-20 11:48 | EKG ---
Test Reason : Blood Pressure : / mmHG Vent. Rate : 083 BPM Atrial Rate : 083 BPM P-R Int : 148 ms QRS Dur : 082 ms QT Int : 362 ms P-R-T Axes : 021 019 031 degrees QTc Int : 425 ms NORMAL SINUS RHYTHM NORMAL ECG WHEN COMPARED WITH ECG OF 30-AUG-2018 14:03, NO SIGNIFICANT CHANGE WAS FOUND Confirmed by ANGELITA MCCLELLAND MD ([id number]) on 05/20/2020 11:48:06 AM Referred By: Confirmed By:ANGELITA MCCLELLAND MD
[2020-05-20 11:51] LABS: BLOOD UREA NITROGEN 14.8 mg/dL (7-18); CALCIUM 9.1 mg/dL (8.5-10.1); POTASSIUM 4.8 mmol/L (3.5-5.1)
--- NOTE | 2020-05-20 12:56 | PN ---
Progress Note, Physician Chief Complaint: AMS TIA History of Present Illness: NAD Mental status at baseline Seen by Cardiology CT head + MRI brain unremarkable Neurology consult pending Denies any SOB at the moment - Current Medication List Current Medications: Active Medications Atorvastatin Calcium (Lipitor -) 20 mg PO HS [facility] Enoxaparin Sodium (Lovenox -) 40 mg SQ DAILY [facility] Last Admin: 05/20/20 10:07 Dose: 40 mg Documented by: Levothyroxine Sodium (Synthroid -) 25 mcg PO ACBK [facility] Last Admin: 05/20/20 07:36 Dose: 25 mcg Documented by: Tamsulosin HCl (Flomax -) 0.4 mg PO DAILY@0830 [facility] Last Admin: 05/20/20 10:07 Dose: 0.4 mg Documented by: Tiotropium [place] (Spiriva Respimat) 2 puff IH DAILY [facility] Last Admin: 05/20/20 10:49 Dose: 2 puff Documented by: - Objective Vital Signs: Vital Signs Temperature 98.0 F 05/20/20 11:07 Pulse Rate 85 05/20/20 12:40 Respiratory Rate 16 05/20/20 12:40 Blood Pressure 127/88 05/20/20 12:40 O2 Sat by Pulse Oximetry (%) 100 05/20/20 12:40 Constitutional: Yes: No Distress, Calm, Thin Cardiovascular: Yes: Regular Rate and Rhythm Respiratory: Yes: Regular, CTA Bilaterally Gastrointestinal: Yes: Normal Bowel Sounds, Soft Genitourinary: Yes: WNL Musculoskeletal: Yes: Muscle Weakness Extremities: Yes: WNL Edema: No Peripheral Pulses WNL: Yes Neurological: Yes: Alert, Oriented Psychiatric: Yes: Alert, Oriented Labs: CBC, BMP 05/19/20 23:39 05/20/20 11:01 INR, PTT INR 1.25 (0.83-1.09) H 05/19/20 23:39 Problem List - Problems (1) TIA (transient ischemic attack) Assessment/Plan: -CT head + MRI brain unimpressive -Neurology consult -Lipid panel normal -Check B12, Thyroid, RPR -Evaluated by cardiology Problems reviewed: Yes Code(s): G45.9 - TRANSIENT CEREBRAL ISCHEMIC ATTACK, UNSPECIFIED (2) Altered mental state Assessment/Plan: -as above Problems reviewed: Yes Code(s): R41.82 - ALTERED MENTAL STATUS, UNSPECIFIED Qualifiers: Altered mental status type: disorientation Qualified Code(s): R41.0 - Disorientation, unspecified (3) Hyperkalemia Assessment/Plan: -resolved Problems reviewed: Yes Code(s): E87.5 - HYPERKALEMIA Assessment/Plan See problem list GI and DVT ppx Left msg for daughter Morelia to update status.
--- NOTE | 2020-05-20 13:36 | CON.PULM ---
Consult Consult Specialty:: PULMONARY Referred by:: Dr Lau Reason for Consultation:: COPD - History of Present Illness Chief Complaint: altered mental status History of Present Illness: 80yo male with h/o hyperlipidemia, BPH, COPD, hypothyroidism, paroxysmal atrial fibrillation, h/o SVT who was admitted with transient episode of confusion. States he was alert but was unable to control his mouth. He denies any chest pain, shortness of breath, palpitations. He has a chronic cough that is unchanged without wheezing. He takes Spiriva and Trelegy at home. No recent fevers, chills or sweats. He currently feels at his baseline. He is a former smoker, started at age 16, quit 20 years ago. - History Source History Provided By: Patient, Medical Record Limitations to Obtaining History: No Limitations - Past Medical History ONLINE TUTOR: Yes: Other Cardio/Vascular: Yes: AFIB, HTN, Hyperlipdemia, Other (Syncope) Pulmonary: Yes: COPD Endocrine: Yes: Hypothyroidism Additional Medical History: svt ablation years ago - Past Surgical History Past Surgical History: Yes: Hernia Repair - Alcohol/Substance Use Hx Alcohol Use: No - Smoking History Smoking history: Unknown if ever smoked Have you smoked in the past 12 months: No Aproximately how many cigarettes per day: 20 If you are a former smoker, when did you quit?: 15 YRS AGO - Social History Usual Living Arrangement: With Spouse ADL: Independent 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 History of Recent Travel: No Home Medications - Allergies Allergies/Adverse Reactions: Allergies Allergy/AdvReac Type Severity Reaction Status Date / Time No Known Allergies Allergy Verified 08/27/18 14:12 - Home Medications Home Medications: Ambulatory Orders Levothyroxine [Synthroid -] 25 mcg PO ACBK 02/14/15 Simvastatin [Zocor -] 40 mg PO HS 02/14/15 Tiotropium [place] [Spiriva] 1 inh IH DAILY 02/14/15 Tamsulosin HCl 0.4 mg PO DAILY #30 cap.er.24h 12/13/16 Review of Systems - Review of Systems Constitutional: denies: Chills, Fever Eyes: denies: Recent Change in Vision HENT: denies: Nasal Congestion, Throat Pain Neck: denies: Stiffness, Tenderness Cardiovascular: denies: Chest Pain, Shortness of Breath Respiratory: reports: Cough. denies: Wheezing Gastrointestinal: denies: Abdominal Pain, Nausea, Vomiting Genitourinary: denies: Dysuria, Hematuria Neurological: denies: Dizziness, Headache Endocrine: denies: Unexplained Weight Loss Physical Exam Vital Sings: Vital Signs Temperature 98.0 F 05/20/20 11:07 Pulse Rate 85 05/20/20 12:40 Respiratory Rate 16 05/20/20 12:40 Blood Pressure 127/88 05/20/20 12:40 O2 Sat by Pulse Oximetry (%) 100 05/20/20 12:40 Constitutional: Yes: Calm Eyes: Yes: Conjunctiva Clear, EOM Intact HENT: Yes: Atraumatic, Normocephalic Neck: Yes: Supple, Trachea Midline Cardiovascular: Yes: Regular Rate and Rhythm Respiratory: Yes: Diminished (distant breath sounds) ...Clubbing: No Gastrointestinal: Yes: Normal Bowel Sounds, Soft. No: Tenderness Edema: No Neurological: Yes: Alert, Oriented Labs: CBC, BMP 05/19/20 23:39 05/20/20 11:01 Imaging - Results Chest X-ray: Report Reviewed, Image Reviewed (hyperinflated, no infiltrates) Assessment/Plan r/o TIA COPD/Emphysema BPH Hypothyroidism Hyperlipidemia - neuro work up in progress - COPD currently appears stable - continue Spiriva - inhaled bronchodilators as needed - DVT prophylaxis Thank you for this consult Vincent Montoya MD
[2020-05-20 19:00] VITALS: BMI 20.7
[2020-05-20] MEDS ORDERED: ACETAMINOPHEN 325 MG TABLET (FP) PO PRN (21:38)
[2020-05-20] MEDS: APIXABAN 5 MG TABLET PO SCH (21:48)
[2020-05-20] MEDS: ATORVASTATIN CA 20 MG TABLET (FP) PO SCH (21:48)
[2020-05-20] MEDS ORDERED: PATIENT'S OWN MEDICATION (NON-FORMULARY) (Simvastatin 40 MG) PO SCH (22:00)
[2020-05-21] MEDS: LEVOTHYROXINE NA 25 MCG TABLET (FP) PO SCH (06:44)
[2020-05-21 07:14] LABS: HEMATOCRIT 32.6 % (35.4-49); HEMOGLOBIN 10.8 GM/dL (11.7-16.9); MCH 31.9 pg (25.7-33.7); MCHC 33.3 g/dl (32.0-35.9); MEAN CELL VOLUME 95.8 fl (80-96); MEAN PLT VOLUME 8.3 fl (7.5-11.1); PLATELET COUNT 298 K/MM3 (134-434); RDW 14.3 % (11.9-15.9)
[2020-05-21 07:48] LABS: ALBUMIN 3.1 g/dl (3.4-5.0); BILIRUBIN,TOTAL 0.5 mg/dL (0.2-1); BLOOD UREA NITROGEN 10.5 mg/dL (7-18); CALCIUM 8.6 mg/dL (8.5-10.1); CREATININE 0.8 mg/dL (0.55-1.3); POTASSIUM 4.5 mmol/L (3.5-5.1); TOT PROT 6.5 g/dl (6.4-8.2)
[2020-05-21] MEDS: TAMSULOSIN HCL 0.4 MG CAP PO SCH (09:08)
[2020-05-21] MEDS: MULTIVITAMINS (DAILY MVI) TABLET (FP) PO SCH (09:09)
[2020-05-21] MEDS: APIXABAN 5 MG TABLET PO SCH ×2 (09:09→21:47)
[2020-05-21] MEDS: FINASTERIDE 5 MG TABLET (FP) PO SCH (09:09)
[2020-05-21] MEDS: TIOTROPIUM BROMIDE 2.5 MCG (SPIRIVA) RESPIMAT INHALER IH SCH (09:09)
--- NOTE | 2020-05-21 09:48 | PN ---
Progress Note, Physician - Current Medication List Current Medications: Active Medications Acetaminophen (Tylenol -) 650 mg PO Q4H PRN PRN Reason: PAIN 1-3 Apixaban (Eliquis -) 5 mg PO BID [facility] Last Admin: 05/21/20 09:09 Dose: 5 mg Documented by: Atorvastatin Calcium (Lipitor -) 20 mg PO HS [facility] Last Admin: 05/20/20 21:48 Dose: 20 mg Documented by: Finasteride (Proscar -) 5 mg PO DAILY [facility] Last Admin: 05/21/20 09:09 Dose: 5 mg Documented by: Levothyroxine Sodium (Synthroid -) 25 mcg PO ACBK [facility] Last Admin: 05/21/20 06:44 Dose: 25 mcg Documented by: Multivitamins/Minerals/Vitamin C (Tab-A-Vit -) 1 tab PO DAILY [facility] Last Admin: 05/21/20 09:09 Dose: 1 tab Documented by: Tamsulosin HCl (Flomax -) 0.4 mg PO DAILY@0830 [facility] Last Admin: 05/21/20 09:08 Dose: 0.4 mg Documented by: Tiotropium [place] (Spiriva Respimat) 2 puff IH DAILY [facility] Last Admin: 05/21/20 09:09 Dose: 2 puff Documented by: - Objective Vital Signs: Vital Signs Temperature 97.9 F 05/21/20 09:14 Pulse Rate 91 H 05/21/20 09:14 Respiratory Rate 20 05/21/20 09:14 Blood Pressure 108/66 05/21/20 09:14 O2 Sat by Pulse Oximetry (%) 100 05/21/20 09:14 Cardiovascular: Yes: Regular Rate and Rhythm Respiratory: Yes: Regular, CTA Bilaterally Gastrointestinal: Yes: Normal Bowel Sounds, Soft Neurological: Yes: Alert, Oriented. No: Facial Droop Labs: CBC, BMP 05/21/20 05:39 05/21/20 05:39 INR, PTT INR 1.25 (0.83-1.09) H 05/19/20 23:39 Assessment/Plan - Problems (1) TIA (transient ischemic attack) Assessment/Plan: -CT head + MRA brain unimpressive -MRI of Brain -Neurology consult -Lipid panel normal -Check B12, Thyroid, RPR -Evaluated by cardiology Problems reviewed: Yes Code(s): G45.9 - TRANSIENT CEREBRAL ISCHEMIC ATTACK, UNSPECIFIED (2) Altered mental state Assessment/Plan: -Resolved Problems reviewed: Yes Code(s): R41.82 - ALTERED MENTAL STATUS, UNSPECIFIED Qualifiers: Altered mental status type: disorientation Qualified Code(s): R41.0 - Disorientation, unspecified (3) Hyperkalemia Assessment/Plan: -resolved Problems reviewed: Yes Code(s): E87.5 - HYPERKALEMIA If mri of head negative will dc home and follow up as outpatient
--- NOTE | 2020-05-21 10:34 | PN ---
Progress Note, Physician History of Present Illness: pulmonary alert,comfortable,feeling better,-cp,-sob at rest - Current Medication List Current Medications: Active Medications Acetaminophen (Tylenol -) 650 mg PO Q4H PRN PRN Reason: PAIN 1-3 Apixaban (Eliquis -) 5 mg PO BID [facility] [place] Last Admin: 05/21/20 09:09 Dose: 5 mg Documented by: Atorvastatin Calcium (Lipitor -) 20 mg PO HS [facility] [place] Last Admin: 05/20/20 21:48 Dose: 20 mg Documented by: Finasteride (Proscar -) 5 mg PO DAILY [facility] [place] Last Admin: 05/21/20 09:09 Dose: 5 mg Documented by: Levothyroxine Sodium (Synthroid -) 25 mcg PO ACBK [facility] [place] Last Admin: 05/21/20 06:44 Dose: 25 mcg Documented by: Multivitamins/Minerals/Vitamin C (Tab-A-Vit -) 1 tab PO DAILY [facility] [place] Last Admin: 05/21/20 09:09 Dose: 1 tab Documented by: Tamsulosin HCl (Flomax -) 0.4 mg PO DAILY@0830 [facility] [place] Last Admin: 05/21/20 09:08 Dose: 0.4 mg Documented by: Tiotropium [place] (Spiriva Respimat) 2 puff IH DAILY [facility] [place] Last Admin: 05/21/20 09:09 Dose: 2 puff Documented by: - Objective Vital Signs: Vital Signs Temperature 97.9 F 05/21/20 09:14 Pulse Rate 91 H 05/21/20 09:14 Respiratory Rate 20 05/21/20 09:14 Blood Pressure 108/66 05/21/20 09:14 O2 Sat by Pulse Oximetry (%) 100 05/21/20 09:14 Constitutional: Yes: Well Nourished, Calm Eyes: Yes: WNL HENT: Yes: WNL Neck: Yes: WNL Cardiovascular: Yes: Regular Rate and Rhythm, S1, S2 Respiratory: Yes: Diminished Gastrointestinal: Yes: Normal Bowel Sounds, Soft Extremities: Yes: WNL Edema: No Labs: CBC, BMP 05/21/20 05:39 05/21/20 05:39 INR, PTT INR 1.25 (0.83-1.09) H 05/19/20 23:39 Problem List - Problems (1) TIA (transient ischemic attack) Code(s): G45.9 - TRANSIENT CEREBRAL ISCHEMIC ATTACK, UNSPECIFIED (2) COPD (chronic obstructive pulmonary disease) Code(s): J44.9 - CHRONIC OBSTRUCTIVE PULMONARY DISEASE, UNSPECIFIED (3) Hypertension Code(s): I10 - ESSENTIAL (PRIMARY) HYPERTENSION (4) Hypothyroid Code(s): E03.9 - HYPOTHYROIDISM, UNSPECIFIED Assessment/Plan Assessment/Plan r/o TIA COPD/Emphysema BPH Hypothyroidism Hyperlipidemia - O2 - neuro work up in progress - COPD currently appears stable - Spiriva - inhaled bronchodilators as needed - DVT prophylaxis DR GEORGE
[2020-05-21 16:15] LABS: BASO % 0.9 % (0-2.0); EOS % 3.5 % (0-4.5); HEMATOCRIT 33.8 % (35.4-49); HEMOGLOBIN 11.2 GM/dL (11.7-16.9); LYMPH % 13.3 % (8-40); MCH 31.7 pg (25.7-33.7); MEAN CELL VOLUME 96.3 fl (80-96); MEAN PLT VOLUME 7.8 fl (7.5-11.1); MONO % 11.2 % (3.8-10.2); NEUT % 71.1 % (42.8-82.8); PLATELET COUNT 286 K/MM3 (134-434); RBC 3.51 M/mm3 (4.00-5.60); RDW 14.2 % (11.9-15.9); WHITE BLOOD COUNT 7.8 K/mm3 (4.0-10.0)
--- NOTE | 2020-05-21 20:13 | CONSULT ---
Consult - text type - Consultation Consultation Note: NEUROLOGY CONSULTATION is greatly appreciated: Events reviewed and discussed with JOSE Eng. Patient examined. 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 Quit smoking > 15 years ago. Maintained on Elixis, L-Thyroxin, atorvastatin, Spiriva, Tamsulosin and finesteride. Seen by me in the past for Syncope with documented pulselessness, CPR and a fairly prolonged, but complete recovery. Never recurred. However has had progressive dyspnea at home and now requires O2. On Sunday had episode of gibberish speech, witnessed by his and daughter who called EMS. Lasted 10-15 mins. Not associated with depressed LOC. Upon arrival in ED, speech had normalized. In ED O2 Sats= 70%'s. Now feels spech is back to normal. Notes ESQUEDA and some unsteady gait. CT of head (reviewed): Mild atrophy and scattered microvascular changes MR Angio: No sig stenoses Carotid duplex doppler (reviewed but not yet reported): Scattered intimal plaque and calcification. No sig stenoses or hemodynamic changes. B12= 2123 pg% TSH= 2.12 Exam: No carotid bruits. Cor reg. On O2 Neuro: Awake, alert, remembers me MS/Speech: Normal CN II-XII: Normal without Nystagmus Motor: No drift or tremor. Normal strength. Normal reflexes excepat absent AJ's. Toes downgoing. Coord: No FTN dystaxia Sensory: Sl decrease vib feet. Romberg Neg Gait: Sl wide-based, sl shuffle IMP: Non-focal neurological exam . Mild peripheral neuropathy Possible left cerebral TIA. Possibly embolic due to paroxysmal AFib. (less likely partial seizure or sudden, severe, desaturation) SUGGEST: Continue eliquis. To stabilize gait- have patient obtain a rolling O2 carrying rack with a handle that will serve as a "Quad cane" when walking. Neuro f/u as out patient. Thank you very much, José Hager MD
[2020-05-21] MEDS: ATORVASTATIN CA 20 MG TABLET (FP) PO SCH (21:47)
[2020-05-22] MEDS: LEVOTHYROXINE NA 25 MCG TABLET (FP) PO SCH (06:00)
[2020-05-22] MEDS: TAMSULOSIN HCL 0.4 MG CAP PO SCH (08:42)
--- NOTE | 2020-05-22 10:06 | DS ---
Physical Examination Vital Signs: Vital Signs Temperature 98.2 F 05/22/20 06:00 Pulse Rate 82 05/22/20 06:00 Respiratory Rate 18 05/22/20 06:00 Blood Pressure 111/76 05/22/20 06:00 O2 Sat by Pulse Oximetry (%) 97 05/22/20 06:00 Cardiovascular: Yes: S1, S2 Respiratory: Yes: Regular, CTA Bilaterally Gastrointestinal: Yes: Normal Bowel Sounds, Soft Neurological: Yes: Alert, Oriented. No: Facial Droop Labs: CBC, BMP 05/21/20 15:45 05/21/20 05:39 Discharge Summary Problems reviewed: Yes Reason For Visit: TRANSIENT ISCHEMIC ATTACK Current Active Problems Hyperkalemia (Acute) TIA (transient ischemic attack) (Acute) Hospital Course: - Problems (1) TIA (transient ischemic attack) Assessment/Plan: -CT head + MRA brain unimpressive -MRI of Brain -Neurology consult noted -Lipid panel normal -Check B12, Thyroid, RPR -Evaluated by cardiology Problems reviewed: Yes Code(s): G45.9 - TRANSIENT CEREBRAL ISCHEMIC ATTACK, UNSPECIFIED (2) Altered mental state Assessment/Plan: -Resolved Problems reviewed: Yes Code(s): R41.82 - ALTERED MENTAL STATUS, UNSPECIFIED Qualifiers: Altered mental status type: disorientation Qualified Code(s): R41.0 - Disorientation, unspecified (3) Hyperkalemia Assessment/Plan: -resolved Problems reviewed: Yes Code(s): E87.5 - HYPERKALEMIA (4) copd Assessment/Plan: -Home oxygen -Inhalers - (3) Afib Assessment/Plan: -Eliquis Condition: Fair - Instructions Referrals: Armand Lau MD [Primary Care Provider] - 1 Week Disposition: [facility]NS/HOME HEALTH CARE - Home Medications Comprehensive Discharge Medication List: Ambulatory Orders Levothyroxine [Synthroid -] 25 mcg PO ACBK 02/14/15 Simvastatin [Zocor -] 20 mg PO HS 02/14/15 Tiotropium [place] [Spiriva] 1 inh IH DAILY 02/14/15 Apixaban [Eliquis] 5 mg PO BID 05/20/20 Finasteride [Proscar -] 5 mg PO DAILY 05/20/20 Fluticasone/Umeclidin/Vilanter [Trelegy Ellipta 100-62.5-25] 1 each IH DAILY 05/20/20 Multivitamin [Multivitamins] 1 each PO DAILY 05/20/20 Acetaminophen [Tylenol .Regular Strength -] 650 mg PO Q4H PRN tablet 05/22/20
[2020-05-22] MEDS: APIXABAN 5 MG TABLET PO SCH (10:52)
[2020-05-22] MEDS: FINASTERIDE 5 MG TABLET (FP) PO SCH (10:52)
[2020-05-22] MEDS: MULTIVITAMINS (DAILY MVI) TABLET (FP) PO SCH (10:52)
[2020-05-22] MEDS: TIOTROPIUM BROMIDE 2.5 MCG (SPIRIVA) RESPIMAT INHALER IH SCH (10:53)
[2020-05-22 11:01] VITALS: BP 111/74; PULSE 89; TEMP 97.7
== END 2020-05-22 13:28 | disposition home health service (06) | DRG 69 ==
LOC: JER 21:08 → JERBED 05-20 02:12 → J4S 05-20 19:07
PROVIDERS: ADMIT Internal Medicine; ATTEND Family Medicine
DX: G45.9 Transient cerebral ischemic attack, unspecified (principal); I10 Essential (primary) hypertension; E78.5 Hyperlipidemia, unspecified; E03.9 Hypothyroidism, unspecified; N40.0 Benign prostatic hyperplasia without lower urinary tract symptoms; J43.9 Emphysema, unspecified; Z87.891 Personal history of nicotine dependence; E87.5 Hyperkalemia; I48.0 Paroxysmal atrial fibrillation; Z79.01 Long term (current) use of anticoagulants; G62.9 Polyneuropathy, unspecified
CPT/HCPCS: 36415; 70450-TC; 70544-TC; 71045-TC-FY; 71275-TC; 80048; 80053; 80061; 81003; 82550; 82607; 83721; 84439; 84443; 84484; 85025; 85027; 85610; 85730; 86780; 93005; 93010; 93880-TC; 94761; 97116-GP; 97161-GP; 99285-25; C1887; Q9967; U0003

== ENCOUNTER 2020-12-06 16:44 | Observation (INO) | payer OTHER, BC ==
[2020-12-06] MEDS ORDERED: SODIUM CHLORIDE 1,000 ML IV SCH (16:45)
[2020-12-06 17:50] LABS: VENOUS BASE EXCESS -0.5 mmol/L (-2-2); VENOUS O2 SATURATION 32.7 % (70-80); VENOUS PCO2 47.5 mmHg (38-52); VENOUS PH 7.349 (7.310-7.410)
[2020-12-06 17:55] LABS: BASO % 0.8 % (0-2.0); EOS % 1.8 % (0-4.5); HEMATOCRIT 35.2 % (35.4-49); HEMOGLOBIN 11.6 GM/dL (11.7-16.9); LYMPH % 21.7 % (8-40); MCH 31.5 pg (25.7-33.7); MCHC 32.9 g/dl (32.0-35.9); MEAN CELL VOLUME 95.9 fl (80-96); MEAN PLT VOLUME 8.5 fl (7.5-11.1); MONO % 7.9 % (3.8-10.2); NEUT % 67.8 % (42.8-82.8); PLATELET COUNT 302 K/MM3 (134-434); RBC 3.68 M/mm3 (4.00-5.60); RDW 15.2 % (11.9-15.9)
[2020-12-06 18:03] LABS: INR 1.3 (0.83-1.09); PROTHROMBIN TIME (PATIENT) 15.9 SEC (9.7-13.0)
[2020-12-06 18:05] LABS: ACTIVATED PTT 30.4 SECONDS (25.2-36.5)
[2020-12-06 18:14] LABS: CHLORIDE 106 mmol/L (98-107); POTASSIUM 4.6 mmol/L (3.5-5.1); SODIUM 139 mmol/L (136-145)
[2020-12-06 18:16] LABS: ANION GAP 6 MMOL/L (8-16); CALCIUM 9.4 mg/dL (8.5-10.1); CO2 28 mmol/L (21-32)
[2020-12-06 18:17] LABS: ALBUMIN 3.9 g/dl (3.4-5.0); BLOOD UREA NITROGEN 17.6 mg/dL (7-18); GLUCOSE,RANDOM 101 mg/dL (74-106)
[2020-12-06 18:18] LABS: CHOLESTEROL 139 mg/dL (50-200)
[2020-12-06 18:20] LABS: CREATININE 1.1 mg/dL (0.55-1.3); SGOT/AST 16 U/L (15-37); SGPT/ALT 27 U/L (13-61); TRIGLYCERIDES 131 mg/dL (0-150)
[2020-12-06 18:21] LABS: ALK PHOS 82 U/L (45-117); BILIRUBIN,TOTAL 0.3 mg/dL (0.2-1); HDL CHOLESTEROL 63 mg/dL (40-60); LDL CHOLESTEROL (ONLY SJRH) 59 mg/dL (5-100); TOT PROT 7.5 g/dl (6.4-8.2)
[2020-12-06] MEDS ORDERED: PATIENT'S OWN MEDICATION (NON-FORMULARY) (Simvastatin 40 MG Tablet) PO SCH (22:00)
[2020-12-06] MEDS ORDERED: APIXABAN 5 MG TABLET ONE (22:18)
[2020-12-06] MEDS ORDERED: ATORVASTATIN CA 10 MG TABLET (FP) ONE (22:21)
[2020-12-06] MEDS: ATORVASTATIN CA 10 MG TABLET (FP) PO SCH (22:24)
[2020-12-06] MEDS: APIXABAN 5 MG TABLET PO SCH (22:24)
[2020-12-07 04:54] VITALS: BMI 21.3
[2020-12-07] MEDS: LEVOTHYROXINE NA 25 MCG TABLET (FP) PO SCH (06:56)
[2020-12-07 08:07] LABS: BASO % 0.8 % (0-2.0); EOS % 0.1 % (0-4.5); HEMOGLOBIN 11.5 GM/dL (11.7-16.9); MCHC 33.8 g/dl (32.0-35.9); MEAN CELL VOLUME 94.6 fl (80-96); MEAN PLT VOLUME 8.3 fl (7.5-11.1); NEUT % 80.1 % (42.8-82.8); PLATELET COUNT 281 K/MM3 (134-434); RDW 14.9 % (11.9-15.9); WHITE BLOOD COUNT 10.6 K/mm3 (4.0-10.0)
[2020-12-07 08:25] LABS: POTASSIUM 4.6 mmol/L (3.5-5.1)
[2020-12-07 08:27] LABS: ALBUMIN 3.6 g/dl (3.4-5.0); CALCIUM 8.9 mg/dL (8.5-10.1)
[2020-12-07 08:28] LABS: BLOOD UREA NITROGEN 16.2 mg/dL (7-18)
[2020-12-07 08:31] LABS: CREATININE 0.9 mg/dL (0.55-1.3)
[2020-12-07 08:32] LABS: BILIRUBIN,TOTAL 0.5 mg/dL (0.2-1)
[2020-12-07] MEDS: APIXABAN 5 MG TABLET PO SCH ×2 (09:48→21:24)
[2020-12-07] MEDS: FINASTERIDE 5 MG TABLET (FP) PO SCH (09:48)
[2020-12-07] MEDS: MULTIVITAMINS (DAILY MVI) TABLET (FP) PO SCH (09:48)
[2020-12-07] MEDS ORDERED: TIOTROPIUM BROMIDE 2.5 MCG (SPIRIVA) RESPIMAT INHALER IH SCH (10:00)
[2020-12-07] MEDS ORDERED: PATIENT'S OWN MEDICATION (NON-FORMULARY) (Multivitamin [Multivitamins] 1 EACH Tablet) PO SCH (10:00)
[2020-12-07] MEDS ORDERED: PATIENT'S OWN MEDICATION (NON-FORMULARY) (Tiotropium Bromide [Spiriva] 18 MCG/INH Inh) IH SCH (10:00)
[2020-12-07] MEDS: ATORVASTATIN CA 10 MG TABLET (FP) PO SCH (21:24)
[2020-12-08] MEDS: LEVOTHYROXINE NA 25 MCG TABLET (FP) PO SCH (06:33)
[2020-12-08] MEDS: APIXABAN 5 MG TABLET PO SCH (09:35)
[2020-12-08] MEDS: FINASTERIDE 5 MG TABLET (FP) PO SCH (09:35)
[2020-12-08] MEDS: MULTIVITAMINS (DAILY MVI) TABLET (FP) PO SCH (09:35)
[2020-12-08] MEDS ORDERED: ASPIRIN 81 MG CHEWABLE TABLETS PO SCH (10:00)
[2020-12-08 11:51] VITALS: BP 147/79; PULSE 86; TEMP 98.2
== END 2020-12-08 14:46 | disposition home or self-care (01) ==
LOC: JER 16:44 → JERBED 17:55 → J4W 12-07 04:01
PROVIDERS: ATTEND Family Medicine
PROC: 3E0337Z Introduction of Electrolytic and Water Balance Substance into Peripheral Vein, Percutaneous Approach (ICD-10-PCS; principal; 2020-12-06)
DX: G45.9 Transient cerebral ischemic attack, unspecified (principal); J44.9 Chronic obstructive pulmonary disease, unspecified; I10 Essential (primary) hypertension; E03.9 Hypothyroidism, unspecified; Z20.822 Contact with and (suspected) exposure to COVID-19; Z29.9 Encounter for prophylactic measures, unspecified; Z79.01 Long term (current) use of anticoagulants; N40.0 Benign prostatic hyperplasia without lower urinary tract symptoms; I48.91 Unspecified atrial fibrillation; R55 Syncope and collapse; Z98.49 Cataract extraction status, unspecified eye; R41.0 Disorientation, unspecified
CPT/HCPCS: 36415; 70450-TC; 70551-TC; 71045-TC-FY; 80053; 80061; 82550; 82607; 82803; 82962; 83721; 84484; 85025; 85610; 85730; 86850; 86900; 86901; 93005; 93010; 93880-TC; 96360; 97116-GP; 97162-GP; 99285-25; C9803; G0378; U0003

== ENCOUNTER 2021-06-06 04:48 | Day surgery (SDC) | payer OTHER, BC ==
[2021-06-01 16:07] VITALS: BMI 21.6
[2021-06-06 13:57] LABS: BASO % 1.3 % (0-2.0); EOS % 0.8 % (0-4.5); HEMATOCRIT 32.7 % (35.4-49); LYMPH % 20.3 % (8-40); MCH 32.8 pg (25.7-33.7); MCHC 33.7 g/dl (32.0-35.9); MEAN CELL VOLUME 97.4 fl (80-96); MEAN PLT VOLUME 7.5 fl (7.5-11.1); MONO % 7.5 % (3.8-10.2); NEUT % 70.1 % (42.8-82.8); PLATELET COUNT 358 10^3/uL (134-434); RBC 3.36 M/mm3 (4.00-5.60); RDW 14.1 % (11.9-15.9); WHITE BLOOD COUNT 7.6 K/mm3 (4.0-10.0)
[2021-06-06 14:06] LABS: INR 1.1 (0.83-1.09); PROTHROMBIN TIME (PATIENT) 13.3 SEC (9.7-13.0)
[2021-06-06 14:09] VITALS: BP 138/74; PULSE 89; TEMP 98
[2021-06-06 14:24] LABS: ALBUMIN 3.5 g/dl (3.4-5.0); CALCIUM 8.7 mg/dL (8.5-10.1)
[2021-06-06 14:25] LABS: BLOOD UREA NITROGEN 11.9 mg/dL (7-18)
[2021-06-06 14:29] LABS: BILIRUBIN,TOTAL 0.3 mg/dL (0.2-1); TOT PROT 6.9 g/dl (6.4-8.2)
== END 2021-06-06 14:01 | disposition home or self-care (01) ==
LOC: JASU-ENDO 04:48
PROVIDERS: ATTEND Internal Medicine Gastroenterology
PROC: 0DBK8ZX Excision of Ascending Colon, Via Natural or Artificial Opening Endoscopic, Diagnostic (ICD-10-PCS; 2021-06-06)
PROC: 3E0H8GC Introduction of Other Therapeutic Substance into Lower GI, Via Natural or Artificial Opening Endoscopic (ICD-10-PCS; 2021-06-06)
PROC: 0DB98ZX Excision of Duodenum, Via Natural or Artificial Opening Endoscopic, Diagnostic (ICD-10-PCS; 2021-06-06)
PROC: 0DB68ZX Excision of Stomach, Via Natural or Artificial Opening Endoscopic, Diagnostic (ICD-10-PCS; 2021-06-06)
PROC: 0DB48ZX Excision of Esophagogastric Junction, Via Natural or Artificial Opening Endoscopic, Diagnostic (ICD-10-PCS; 2021-06-06)
PROC: 0DBL8ZX Excision of Transverse Colon, Via Natural or Artificial Opening Endoscopic, Diagnostic (ICD-10-PCS; principal; 2021-06-06 11:00)
DX: Z12.11 Encounter for screening for malignant neoplasm of colon (principal); K92.1 Melena; Z86.010 Personal history of colon polyps; D12.2 Benign neoplasm of ascending colon; D12.3 Benign neoplasm of transverse colon; K57.30 Diverticulosis of large intestine without perforation or abscess without bleeding; K21.9 Gastro-esophageal reflux disease without esophagitis; K44.9 Diaphragmatic hernia without obstruction or gangrene; K25.9 Gastric ulcer, unspecified as acute or chronic, without hemorrhage or perforation; K29.80 Duodenitis without bleeding; K29.50 Unspecified chronic gastritis without bleeding
CPT/HCPCS: 36415; 80053; 82378; 82728; 83540; 83550; 85025; 85610; 86140; 88305-TC; 88342-TC

== ENCOUNTER 2021-09-06 15:03 | Inpatient (IN) | payer OTHER, BC ==
[2021-09-06 16:55] LABS: BASO % 1.2 % (0-2.0); EOS % 2.5 % (0-4.5); HEMATOCRIT 29.4 % (35.4-49); HEMOGLOBIN 9.8 GM/dL (11.7-16.9); LYMPH % 13.5 % (8-40); MCH 30.4 pg (25.7-33.7); MCHC 33.3 g/dl (32.0-35.9); MEAN CELL VOLUME 91.1 fl (80-96); MEAN PLT VOLUME 7.5 fl (7.5-11.1); MONO % 9.2 % (3.8-10.2); NEUT % 73.6 % (42.8-82.8); PLATELET COUNT 324 10^3/uL (134-434); RBC 3.22 M/mm3 (4.00-5.60); RDW 15.9 % (11.9-15.9); WHITE BLOOD COUNT 8.2 K/mm3 (4.0-10.0)
[2021-09-06 17:02] LABS: INR 1.51 (0.83-1.09)
[2021-09-06 17:04] LABS: ACTIVATED PTT 28.7 SECONDS (25.2-36.5)
[2021-09-06 17:13] LABS: CHLORIDE 106 mmol/L (98-107); SODIUM 140 mmol/L (136-145)
[2021-09-06 17:16] LABS: ALBUMIN 3.1 g/dl (3.4-5.0); ANION GAP 9 MMOL/L (8-16); BLOOD UREA NITROGEN 17.4 mg/dL (7-18); CALCIUM 9.3 mg/dL (8.5-10.1); CO2 25 mmol/L (21-32); GLUCOSE,RANDOM 85 mg/dL (74-106)
[2021-09-06 17:18] LABS: MAGNESIUM 2.5 mg/dL (1.8-2.4)
[2021-09-06 17:19] LABS: SGOT/AST 15 U/L (15-37); SGPT/ALT 21 U/L (13-61)
[2021-09-06 17:21] LABS: BILIRUBIN,TOTAL 0.4 mg/dL (0.2-1); TOT PROT 7.2 g/dl (6.4-8.2)
[2021-09-06 17:22] LABS: ALK PHOS 85 U/L (45-117)
[2021-09-06 17:24] LABS: N-TERMINAL BNP 963.7 pg/ml (5-450)
[2021-09-06] MEDS ORDERED: POLYETHYLENE GLYCOL (HEALTHYLAX) 3350 17 GM PACKET PO PRN (20:07)
[2021-09-06] MEDS ORDERED: ALBUTEROL SO4 2.5/IPRATROPIUM 0.5 INH SOL 3 ML VIAL.NEB. NEB PRN (20:12)
[2021-09-06] MEDS ORDERED: methylPREDNISolone NA SUCC 125 MG/2 ML VIAL IVPUSH ONE (20:14)
[2021-09-06] MEDS ORDERED: FAMOTIDINE 20 MG/50 ML IVPB 20 MG/50 ML MG IVPB ONE ×2 (20:15→20:53)
[2021-09-06] MEDS ORDERED: INSULIN REGULAR HUMAN 100 UNITS/ML *VIAL IVPUSH ONE (20:30)
[2021-09-06] MEDS ORDERED: DEXTROSE 50%-WATER - 25 GM/50 ML VIAL IVPUSH ONE (20:31)
[2021-09-06] MEDS ORDERED: SODIUM BICARBONATE 8.4% 50 MEQ/50 ML DISP.SYRIN IVPUSH ONE (20:31)
[2021-09-06] MEDS ORDERED: CALCIUM GLUCONATE 10% - 1,000 MG/10 ML VIAL IVPB ONE (20:32)
[2021-09-06] MEDS ORDERED: SODIUM BICARBONATE 8.4% - 50 ML ONE (20:52)
[2021-09-06] MEDS ORDERED: DEXTROSE 50%-WATER - 25 GM/50 ML VIAL ONE (20:52)
[2021-09-06] MEDS ORDERED: CALCIUM GLUCONATE 10% - 1,000 MG/10 ML VIAL ONE (20:52)
[2021-09-06] MEDS ORDERED: methylPREDNISolone NA SUCC 125 MG/2 ML VIAL ONE (20:53)
[2021-09-06] MEDS ORDERED: INSULIN REGULAR HUMAN 100 UNITS/ML *VIAL ONE (20:54)
[2021-09-07] MEDS: APIXABAN 5 MG TABLET PO SCH ×3 (01:00→21:01)
[2021-09-07] MEDS: methylPREDNISolone NA SUCC 40 MG/1 ML VIAL IVPUSH SCH ×4 (04:36→20:44)
[2021-09-07 04:58] LABS: HEMATOCRIT 26.2 % (35.4-49); HEMOGLOBIN 8.8 GM/dL (11.7-16.9); MCH 30.4 pg (25.7-33.7); MCHC 33.5 g/dl (32.0-35.9); MEAN CELL VOLUME 90.9 fl (80-96); MEAN PLT VOLUME 7.7 fl (7.5-11.1); PLATELET COUNT 290 10^3/uL (134-434); RBC 2.88 M/mm3 (4.00-5.60); WHITE BLOOD COUNT 6.6 K/mm3 (4.0-10.0)
[2021-09-07 05:17] LABS: BLOOD UREA NITROGEN 15.7 mg/dL (7-18); CALCIUM 8.7 mg/dL (8.5-10.1)
[2021-09-07 05:21] LABS: CREATININE 0.9 mg/dL (0.55-1.3)
[2021-09-07] MEDS ORDERED: MAG HYDROX/AL HYDROX/SIMETH 30 ML UNIT-DOSE CUP PO PRN (06:08)
[2021-09-07 06:48] LABS: ANISOCYTOSIS 2+; MACROCYTOSIS 0; OVALOCYTE 1+; PLATELET ESTIMATE NORMAL; ROULEAU 2+
[2021-09-07 08:33] LABS: CALCIUM 9.1 mg/dL (8.5-10.1)
[2021-09-07 08:34] LABS: BLOOD UREA NITROGEN 15.4 mg/dL (7-18)
[2021-09-07] MEDS: FINASTERIDE 5 MG TABLET (FP) PO SCH (09:54)
[2021-09-07] MEDS: FERROUS SO4 325 MG TABLET (FP) PO SCH (09:54)
[2021-09-07] MEDS: FLUTICASONE/UMECLIDIN/VILANTER(100-62.5-25 TRELEGY ELLIPTA) INAHLER IH SCH (09:55)
[2021-09-07] MEDS ORDERED: PANTOPRAZOLE 40 MG TABLET PO SCH (10:00)
[2021-09-07] MEDS ORDERED: ENOXAPARIN NA (PORCINE) 40 MG/0.4 ML DISP.SYRIN SQ SCH (10:00)
[2021-09-07 12:05] LABS: BASO % 0.3 % (0-2.0); EOS % 0.1 % (0-4.5); HEMATOCRIT 27.9 % (35.4-49); HEMOGLOBIN 9.3 GM/dL (11.7-16.9); LYMPH % 8.2 % (8-40); MCH 30.4 pg (25.7-33.7); MCHC 33.3 g/dl (32.0-35.9); MEAN CELL VOLUME 91.1 fl (80-96); MEAN PLT VOLUME 7.5 fl (7.5-11.1); MONO % 1.7 % (3.8-10.2); NEUT % 89.7 % (42.8-82.8); PLATELET COUNT 336 10^3/uL (134-434); RBC 3.06 M/mm3 (4.00-5.60); RDW 15.9 % (11.9-15.9); WHITE BLOOD COUNT 7.3 K/mm3 (4.0-10.0)
[2021-09-07 12:24] LABS: BLOOD UREA NITROGEN 17.8 mg/dL (7-18); CALCIUM 9.3 mg/dL (8.5-10.1)
[2021-09-07 12:36] VITALS: BMI 20.9
[2021-09-07] MEDS ORDERED: DEXTROSE 5%-WATER - 50 ML IVPB ONE (15:34)
[2021-09-07] MEDS ORDERED: cefTRIAXone SODIUM 1 GM VIAL ONE (15:34)
[2021-09-07] MEDS: CEFTRIAXONE 1 GM in DEXTROSE 5%-WATER - 50 ML IVPB SCH (17:19)
[2021-09-07] MEDS: ATORVASTATIN CA 10 MG TABLET (FP) PO SCH (21:01)
[2021-09-07] MEDS: PANTOPRAZOLE 40 MG TABLET PO SCH (21:01)
[2021-09-08] MEDS: methylPREDNISolone NA SUCC 40 MG/1 ML VIAL IVPUSH SCH ×3 (02:31→17:55)
[2021-09-08 08:10] LABS: HEMATOCRIT 25.5 % (35.4-49); HEMOGLOBIN 8.6 GM/dL (11.7-16.9); MCH 30.6 pg (25.7-33.7); MCHC 33.8 g/dl (32.0-35.9); MEAN CELL VOLUME 90.4 fl (80-96); MEAN PLT VOLUME 7.5 fl (7.5-11.1); PLATELET COUNT 323 10^3/uL (134-434); RBC 2.82 M/mm3 (4.00-5.60); RDW 16.1 % (11.9-15.9); WHITE BLOOD COUNT 11.6 K/mm3 (4.0-10.0)
[2021-09-08 08:28] LABS: ALBUMIN 2.6 g/dl (3.4-5.0); BLOOD UREA NITROGEN 18.6 mg/dL (7-18)
[2021-09-08 08:30] LABS: CALCIUM 8.6 mg/dL (8.5-10.1)
[2021-09-08 08:31] LABS: MAGNESIUM 2.6 mg/dL (1.8-2.4); URIC ACID 4.1 mg/dL (2.6-7.2)
[2021-09-08 08:32] LABS: PHOSPHOROUS 3.4 mg/dL (2.5-4.9)
[2021-09-08 08:33] LABS: BILIRUBIN,TOTAL 0.3 mg/dL (0.2-1); CREATININE 0.9 mg/dL (0.55-1.3); TOT PROT 6.1 g/dl (6.4-8.2)
[2021-09-08] MEDS ORDERED: cefTRIAXone SODIUM 1 GM VIAL ONE (10:04)
[2021-09-08] MEDS ORDERED: DEXTROSE 5%-WATER - 50 ML IVPB ONE (10:04)
[2021-09-08] MEDS: CEFTRIAXONE 1 GM in DEXTROSE 5%-WATER - 50 ML IVPB SCH (10:23)
[2021-09-08] MEDS: FINASTERIDE 5 MG TABLET (FP) PO SCH (10:23)
[2021-09-08] MEDS: APIXABAN 5 MG TABLET PO SCH ×2 (10:23→21:34)
[2021-09-08] MEDS: FERROUS SO4 325 MG TABLET (FP) PO SCH (10:23)
[2021-09-08] MEDS: FLUTICASONE/UMECLIDIN/VILANTER(100-62.5-25 TRELEGY ELLIPTA) INAHLER IH SCH (10:24)
[2021-09-08] MEDS: ALBUTEROL SO4 0.083% IH SOL 2.5 MG/3 ML VIAL.NEB. NEB SCH ×2 (14:30→20:10)
[2021-09-08] MEDS: PANTOPRAZOLE 40 MG TABLET PO SCH (21:34)
[2021-09-08] MEDS: ATORVASTATIN CA 10 MG TABLET (FP) PO SCH (21:34)
[2021-09-09] MEDS: methylPREDNISolone NA SUCC 40 MG/1 ML VIAL IVPUSH SCH (01:34)
[2021-09-09] MEDS: ALBUTEROL SO4 0.083% IH SOL 2.5 MG/3 ML VIAL.NEB. NEB SCH ×3 (07:20→19:50)
[2021-09-09] MEDS ORDERED: DEXTROSE 5%-WATER - 50 ML IVPB ONE (08:54)
[2021-09-09] MEDS ORDERED: cefTRIAXone SODIUM 1 GM VIAL ONE (08:54)
[2021-09-09 08:56] LABS: HEMATOCRIT 26.7 % (35.4-49); HEMOGLOBIN 9.1 GM/dL (11.7-16.9); MCH 30.3 pg (25.7-33.7); MCHC 34.1 g/dl (32.0-35.9); MEAN CELL VOLUME 88.6 fl (80-96); MEAN PLT VOLUME 7.4 fl (7.5-11.1); PLATELET COUNT 339 10^3/uL (134-434); RBC 3.01 M/mm3 (4.00-5.60); WHITE BLOOD COUNT 11.7 K/mm3 (4.0-10.0)
[2021-09-09 09:33] LABS: ANISOCYTOSIS 0; HELMET CELLS 0; HOWELL-JOLLY BODIES 0; MACROCYTOSIS 0; OVALOCYTE 0; PLATELET ESTIMATE NORMAL; ROULEAU 0; SICKELED CELLS 0; TARGET CELLS 0; TEAR DROP CELLS 0; TOXIC GRANULATION 0
[2021-09-09] MEDS ORDERED: IRON SUCROSE INJECTION 200 MG in SODIUM CHLORIDE 90 ML IVPB ONE (10:00)
[2021-09-09] MEDS: CEFTRIAXONE 1 GM in DEXTROSE 5%-WATER - 50 ML IVPB SCH (10:45)
[2021-09-09] MEDS: APIXABAN 5 MG TABLET PO SCH ×2 (10:46→21:55)
[2021-09-09] MEDS: FERROUS SO4 325 MG TABLET (FP) PO SCH (10:46)
[2021-09-09] MEDS: FINASTERIDE 5 MG TABLET (FP) PO SCH (10:46)
[2021-09-09] MEDS: predniSONE 10 MG TABLET (UD) PO SCH ×2 (10:46→21:54)
[2021-09-09] MEDS: FLUTICASONE/UMECLIDIN/VILANTER(100-62.5-25 TRELEGY ELLIPTA) INAHLER IH SCH (10:52)
[2021-09-09] MEDS: ATORVASTATIN CA 10 MG TABLET (FP) PO SCH (21:55)
[2021-09-10] MEDS: ALBUTEROL SO4 0.083% IH SOL 2.5 MG/3 ML VIAL.NEB. NEB SCH ×2 (08:05→14:37)
[2021-09-10] MEDS ORDERED: DEXTROSE 5%-WATER - 50 ML IVPB ONE (09:05)
[2021-09-10] MEDS ORDERED: cefTRIAXone SODIUM 1 GM VIAL ONE (09:05)
[2021-09-10] MEDS: CEFTRIAXONE 1 GM in DEXTROSE 5%-WATER - 50 ML IVPB SCH (09:24)
[2021-09-10] MEDS: FERROUS SO4 325 MG TABLET (FP) PO SCH (09:24)
[2021-09-10] MEDS: FINASTERIDE 5 MG TABLET (FP) PO SCH (09:24)
[2021-09-10] MEDS: APIXABAN 5 MG TABLET PO SCH (09:24)
[2021-09-10] MEDS: predniSONE 10 MG TABLET (UD) PO SCH (09:24)
[2021-09-10] MEDS: FLUTICASONE/UMECLIDIN/VILANTER(100-62.5-25 TRELEGY ELLIPTA) INAHLER IH SCH (09:25)
[2021-09-10] MEDS ORDERED: PANTOPRAZOLE 40 MG TABLET PO SCH (10:00)
[2021-09-10 13:46] VITALS: BP 108/71; PULSE 97; TEMP 97.9
== END 2021-09-10 16:47 | disposition home or self-care (01) | DRG 191 ==
LOC: JER 15:03 → JERBED 18:34 → J5S 21:38
PROVIDERS: ADMIT Internal Medicine; ATTEND Family Medicine
DX: J44.1 Chronic obstructive pulmonary disease with (acute) exacerbation (principal); R04.2 Hemoptysis; J96.11 Chronic respiratory failure with hypoxia; E87.5 Hyperkalemia; E03.9 Hypothyroidism, unspecified; I48.0 Paroxysmal atrial fibrillation; E78.5 Hyperlipidemia, unspecified; D64.9 Anemia, unspecified; Z86.73 Personal history of transient ischemic attack (TIA), and cerebral infarction without residual deficits; Z87.891 Personal history of nicotine dependence; Z87.19 Personal history of other diseases of the digestive system; Z79.01 Long term (current) use of anticoagulants
CPT/HCPCS: 36415; 71046-TC-FY; 71250-TC; 80048; 80053; 82550; 82728; 82962; 83540; 83550; 83735; 83880; 84100; 84439; 84443; 84481; 84484; 84550; 85025; 85027; 85610; 85730; 87804; 87807; 93005; 93010; 94640; 94761; 97116-GP; 97162-GP; 99285-25; C9803; J1756; U0003; U0005

== ENCOUNTER 2021-11-09 14:55 | Inpatient (IN) | payer OTHER, BC ==
[2021-11-09 16:46] LABS: VENOUS BASE EXCESS 0.4 mmol/L (-2-2); VENOUS O2 SATURATION 41.6 % (70-80); VENOUS PCO2 45.4 mmHg (38-52); VENOUS PH 7.373 (7.310-7.410)
[2021-11-09 16:50] LABS: HEMATOCRIT 29.1 % (35.4-49); HEMOGLOBIN 9.7 GM/dL (11.7-16.9); LYMPH % 2.8 % (8-40); MCH 31.6 pg (25.7-33.7); MCHC 33.1 g/dl (32.0-35.9); MEAN CELL VOLUME 95.6 fl (80-96); MEAN PLT VOLUME 7.9 fl (7.5-11.1); MONO % 1.4 % (3.8-10.2); NEUT % 95.8 % (42.8-82.8); PLATELET COUNT 265 10^3/uL (134-434); RBC 3.05 M/mm3 (4.00-5.60); RDW 20.8 % (11.9-15.9); WHITE BLOOD COUNT 6.8 K/mm3 (4.0-10.0)
[2021-11-09 16:59] LABS: INR 2.82 (0.83-1.09); PROTHROMBIN TIME (PATIENT) 33.4 SEC (9.7-13.0)
[2021-11-09 17:02] LABS: ACTIVATED PTT 34.8 SECONDS (25.2-36.5)
[2021-11-09 17:07] LABS: CHLORIDE 103 mmol/L (98-107); SODIUM 138 mmol/L (136-145)
[2021-11-09 17:09] LABS: CALCIUM 8.5 mg/dL (8.5-10.1)
[2021-11-09 17:10] LABS: ALBUMIN 2.6 g/dl (3.4-5.0); ANION GAP 10 MMOL/L (8-16); BLOOD UREA NITROGEN 39.4 mg/dL (7-18); CO2 25 mmol/L (21-32); GLUCOSE,RANDOM 98 mg/dL (74-106); MAGNESIUM 2.6 mg/dL (1.8-2.4)
[2021-11-09 17:13] LABS: CREATININE 1.6 mg/dL (0.55-1.3); SGOT/AST 26 U/L (15-37); SGPT/ALT 22 U/L (13-61)
[2021-11-09 17:14] LABS: BILIRUBIN,TOTAL 0.5 mg/dL (0.2-1)
[2021-11-09 17:15] LABS: ALK PHOS 84 U/L (45-117)
[2021-11-09] MEDS ORDERED: CEFTRIAXONE 1,000 MG in DEXTROSE 5%-WATER - 50 ML IVPB ONE (17:15)
[2021-11-09] MEDS ORDERED: AZITHROMYCIN IVPB 500 MG in DEXTROSE 5%-WATER - 250 ML IVPB ONE (17:15)
[2021-11-09] MEDS ORDERED: SODIUM CHLORIDE 0.9% 500 ML INFUS.BAG IV ONE (17:17)
[2021-11-09] MEDS ORDERED: DEXAMETHASONE SOD PHOSPHATE 4 MG/1 ML VIAL IVPUSH ONE (17:26)
[2021-11-09 17:51] LABS: ANISOCYTOSIS 1+; MACROCYTOSIS 0; PLATELET ESTIMATE NORMAL
[2021-11-09] MEDS ORDERED: DEXAMETHASONE SOD PHOSPHATE 4 MG/1 ML VIAL ONE (17:52)
[2021-11-09] MEDS ORDERED: CEFTRIAXONE 1 GM/50 ML BAG ONE (17:52)
[2021-11-09] MEDS ORDERED: AZITHROMYCIN IVPB 500 MG/250 ML BAG IVPB ONE (17:53)
[2021-11-09] MEDS ORDERED: ALBUTEROL SO4 HFA INHALER IH PRN (22:46)
[2021-11-09] MEDS: APIXABAN 5 MG TABLET PO SCH (23:14)
[2021-11-09 23:47] VITALS: BMI 19.6
[2021-11-09 23:55] LABS: LDH 353 U/L (87-246)
[2021-11-10] MEDS: LEVOTHYROXINE NA 25 MCG TABLET (FP) PO SCH (06:27)
[2021-11-10 08:48] LABS: EPI CELLS 12 /uL (0-25.1); HYALINE CASTS 2 /uL (0-3.1); PH,URINE 5.5 (5.0-8.0); URINE APPEARANCE CLEAR; URINE BACTERIA 0 /uL (0-1359); URINE BILIRUBIN NEGATIVE (NEGATIVE); URINE COLOR YELLOW; URINE GLUCOSE (UA) NEGATIVE (NEGATIVE); URINE KETONE TRACE (NEGATIVE); URINE LEUK ESTERASE NEGATIVE (NEGATIVE); URINE NITRITE NEGATIVE (NEGATIVE); URINE PROTEIN 1+ (NEGATIVE); URINE RBC 21 /uL (0-23.9); URINE UROBILINOGEN 0.2 mg/dL (0.2-1.0); URINE WBC 9 /uL (0-25.8)
[2021-11-10 10:05] LABS: HEMATOCRIT 26.8 % (35.4-49); HEMOGLOBIN 8.7 GM/dL (11.7-16.9); MCH 31.1 pg (25.7-33.7); MCHC 32.5 g/dl (32.0-35.9); MEAN CELL VOLUME 95.9 fl (80-96); MEAN PLT VOLUME 8.2 fl (7.5-11.1); PLATELET COUNT 260 10^3/uL (134-434); RBC 2.79 M/mm3 (4.00-5.60); RDW 20.8 % (11.9-15.9); WHITE BLOOD COUNT 5.5 K/mm3 (4.0-10.0)
[2021-11-10 10:25] LABS: CALCIUM 8.4 mg/dL (8.5-10.1)
[2021-11-10 10:26] LABS: ALBUMIN 2.2 g/dl (3.4-5.0); BLOOD UREA NITROGEN 33.2 mg/dL (7-18)
[2021-11-10 10:29] LABS: BILIRUBIN,TOTAL 0.4 mg/dL (0.2-1); TOT PROT 5.5 g/dl (6.4-8.2)
[2021-11-10] MEDS ORDERED: PT OWN MED DRAWER 7, Y5N ONE (11:07)
[2021-11-10] MEDS ORDERED: cefTRIAXone SODIUM 1 GM VIAL ONE (11:08)
[2021-11-10] MEDS ORDERED: DEXTROSE 5%-WATER - 50 ML IVPB ONE (11:08)
[2021-11-10] MEDS: ZINC SULFATE 220 MG CAPSULE (FP) PO SCH (11:13)
[2021-11-10] MEDS: APIXABAN 5 MG TABLET PO SCH ×2 (11:13→21:07)
[2021-11-10] MEDS: FINASTERIDE 5 MG TABLET (FP) PO SCH (11:13)
[2021-11-10] MEDS: FERROUS SO4 325 MG TABLET (FP) PO SCH (11:13)
[2021-11-10] MEDS: CHOLECALCIFEROL (VIT D3) 1,000 UNIT (25 MCG) TABLET PO SCH (11:13)
[2021-11-10] MEDS: CEFTRIAXONE 1 GM in DEXTROSE 5%-WATER - 50 ML IVPB SCH (11:14)
[2021-11-10] MEDS: DEXAMETHASONE SOD PHOSPHATE 4 MG/1 ML VIAL IVPUSH SCH (11:14)
[2021-11-10] MEDS: FLUTICASONE/UMECLIDIN/VILANTER(100-62.5-25 TRELEGY ELLIPTA) INAHLER IH SCH ×2 (11:17→16:44)
[2021-11-10] MEDS: ASCORBIC ACID 500 MG TABLET (FP) PO SCH (11:18)
[2021-11-10] MEDS: AZITHROMYCIN IVPB 500 MG/250 ML BAG IVPB SCH (11:26)
[2021-11-10] MEDS ORDERED: REMDESIVIR 200 MG in SODIUM CHLORIDE 250 ML IVPB ONE (13:00)
[2021-11-10 13:24] LABS: ANISOCYTOSIS 2+; MACROCYTOSIS 0; OVALOCYTE 2+; PLATELET ESTIMATE NORMAL; TARGET CELLS 2+; TEAR DROP CELLS 1+
[2021-11-10] MEDS: PANTOPRAZOLE 40 MG TABLET PO SCH (21:07)
[2021-11-10] MEDS: ATORVASTATIN CA 20 MG TABLET (FP) PO SCH (21:07)
[2021-11-11] MEDS: LEVOTHYROXINE NA 25 MCG TABLET (FP) PO SCH (06:10)
[2021-11-11] MEDS ORDERED: PT OWN MED DRAWER 7, Y5N ONE (09:27)
[2021-11-11] MEDS ORDERED: cefTRIAXone SODIUM 1 GM VIAL ONE (09:27)
[2021-11-11] MEDS ORDERED: DEXTROSE 5%-WATER - 50 ML IVPB ONE (09:28)
[2021-11-11] MEDS: CEFTRIAXONE 1 GM in DEXTROSE 5%-WATER - 50 ML IVPB SCH (09:31)
[2021-11-11] MEDS: DEXAMETHASONE SOD PHOSPHATE 4 MG/1 ML VIAL IVPUSH SCH (09:32)
[2021-11-11] MEDS: FLUTICASONE/UMECLIDIN/VILANTER(100-62.5-25 TRELEGY ELLIPTA) INAHLER IH SCH (09:32)
[2021-11-11] MEDS: CHOLECALCIFEROL (VIT D3) 1,000 UNIT (25 MCG) TABLET PO SCH (09:32)
[2021-11-11] MEDS: FINASTERIDE 5 MG TABLET (FP) PO SCH (09:32)
[2021-11-11] MEDS: APIXABAN 5 MG TABLET PO SCH ×2 (09:32→21:11)
[2021-11-11] MEDS: ZINC SULFATE 220 MG CAPSULE (FP) PO SCH (09:32)
[2021-11-11] MEDS: FERROUS SO4 325 MG TABLET (FP) PO SCH (09:32)
[2021-11-11] MEDS: ASCORBIC ACID 500 MG TABLET (FP) PO SCH (09:32)
[2021-11-11 09:37] LABS: HEMATOCRIT 24.7 % (35.4-49); HEMOGLOBIN 8.2 GM/dL (11.7-16.9); LYMPH % 3.6 % (8-40); MCH 31.5 pg (25.7-33.7); MCHC 33.3 g/dl (32.0-35.9); MEAN CELL VOLUME 94.6 fl (80-96); MEAN PLT VOLUME 8.1 fl (7.5-11.1); NEUT % 90.4 % (42.8-82.8); PLATELET COUNT 263 10^3/uL (134-434); RBC 2.61 M/mm3 (4.00-5.60); RDW 20.7 % (11.9-15.9); WHITE BLOOD COUNT 5.4 K/mm3 (4.0-10.0)
[2021-11-11 09:53] LABS: CALCIUM 8.3 mg/dL (8.5-10.1)
[2021-11-11 09:54] LABS: BLOOD UREA NITROGEN 31.2 mg/dL (7-18)
[2021-11-11 09:57] LABS: CREATININE 0.7 mg/dL (0.55-1.3)
[2021-11-11 09:59] LABS: BILIRUBIN,TOTAL 0.8 mg/dL (0.2-1); TOT PROT 5.1 g/dl (6.4-8.2)
[2021-11-11] MEDS: AZITHROMYCIN IVPB 500 MG/250 ML BAG IVPB SCH (10:22)
[2021-11-11] MEDS: REMDESIVIR 100 MG in SODIUM CHLORIDE 250 ML IVPB SCH (14:48)
[2021-11-11] MEDS: PANTOPRAZOLE 40 MG TABLET PO SCH (21:11)
[2021-11-11] MEDS: ATORVASTATIN CA 20 MG TABLET (FP) PO SCH (21:11)
[2021-11-12] MEDS: LEVOTHYROXINE NA 25 MCG TABLET (FP) PO SCH (06:09)
[2021-11-12] MEDS ORDERED: cefTRIAXone SODIUM 1 GM VIAL ONE ×2 (09:48→11:08)
[2021-11-12] MEDS ORDERED: DEXTROSE 5%-WATER - 50 ML IVPB ONE ×2 (09:48→11:08)
[2021-11-12] MEDS: DEXAMETHASONE SOD PHOSPHATE 4 MG/1 ML VIAL IVPUSH SCH (11:00)
[2021-11-12] MEDS: APIXABAN 5 MG TABLET PO SCH ×2 (11:01→21:47)
[2021-11-12] MEDS: ASCORBIC ACID 500 MG TABLET (FP) PO SCH (11:01)
[2021-11-12] MEDS: CHOLECALCIFEROL (VIT D3) 1,000 UNIT (25 MCG) TABLET PO SCH (11:01)
[2021-11-12] MEDS: FINASTERIDE 5 MG TABLET (FP) PO SCH (11:01)
[2021-11-12] MEDS: FERROUS SO4 325 MG TABLET (FP) PO SCH (11:01)
[2021-11-12] MEDS: ZINC SULFATE 220 MG CAPSULE (FP) PO SCH (11:01)
[2021-11-12] MEDS: CEFTRIAXONE 1 GM in DEXTROSE 5%-WATER - 50 ML IVPB SCH (11:09)
[2021-11-12] MEDS: AZITHROMYCIN IVPB 500 MG/250 ML BAG IVPB SCH (11:10)
[2021-11-12] MEDS: FLUTICASONE/UMECLIDIN/VILANTER(100-62.5-25 TRELEGY ELLIPTA) INAHLER IH SCH (11:48)
[2021-11-12 13:45] LABS: HEMATOCRIT 26.6 % (35.4-49); HEMOGLOBIN 8.7 GM/dL (11.7-16.9); MCH 31.1 pg (25.7-33.7); MCHC 32.8 g/dl (32.0-35.9); MEAN PLT VOLUME 8.1 fl (7.5-11.1); PLATELET COUNT 298 10^3/uL (134-434); RDW 20.6 % (11.9-15.9); WHITE BLOOD COUNT 6.1 K/mm3 (4.0-10.0)
[2021-11-12 14:04] LABS: CALCIUM 8.3 mg/dL (8.5-10.1)
[2021-11-12 14:05] LABS: BLOOD UREA NITROGEN 30.2 mg/dL (7-18)
[2021-11-12 14:06] LABS: ALBUMIN 2.1 g/dl (3.4-5.0)
[2021-11-12 14:07] LABS: CREATININE 0.9 mg/dL (0.55-1.3)
[2021-11-12 14:08] LABS: PHOSPHOROUS 2.3 mg/dL (2.5-4.9)
[2021-11-12 14:09] LABS: TOT PROT 5.4 g/dl (6.4-8.2)
[2021-11-12 14:11] LABS: BILIRUBIN,TOTAL 0.4 mg/dL (0.2-1)
[2021-11-12 14:39] LABS: MAGNESIUM 2.2 mg/dL (1.8-2.4)
[2021-11-12 14:56] LABS: ERYTHROCYTE SEDIMENTATION RATE 101 mm/hr (0-20)
[2021-11-12 15:09] LABS: ANISOCYTOSIS 2+
[2021-11-12] MEDS: ALBUTEROL SO4 HFA INHALER IH SCH ×2 (16:12→21:48)
[2021-11-12] MEDS: REMDESIVIR 100 MG in SODIUM CHLORIDE 250 ML IVPB SCH (16:12)
[2021-11-12] MEDS: PANTOPRAZOLE 40 MG TABLET PO SCH (21:46)
[2021-11-12] MEDS: ATORVASTATIN CA 20 MG TABLET (FP) PO SCH (21:47)
[2021-11-13] MEDS: LEVOTHYROXINE NA 25 MCG TABLET (FP) PO SCH (06:30)
[2021-11-13] MEDS: ALBUTEROL SO4 HFA INHALER IH SCH ×3 (06:44→21:12)
[2021-11-13] MEDS ORDERED: cefTRIAXone SODIUM 1 GM VIAL ONE (08:54)
[2021-11-13] MEDS ORDERED: DEXTROSE 5%-WATER - 50 ML IVPB ONE (08:54)
[2021-11-13 09:01] LABS: BASO % 0.1 % (0-2.0); EOS % 0.1 % (0-4.5); HEMATOCRIT 25.8 % (35.4-49); HEMOGLOBIN 8.5 GM/dL (11.7-16.9); LYMPH % 6.8 % (8-40); MCHC 32.9 g/dl (32.0-35.9); MEAN CELL VOLUME 94.2 fl (80-96); MEAN PLT VOLUME 8.7 fl (7.5-11.1); MONO % 12.1 % (3.8-10.2); NEUT % 80.9 % (42.8-82.8); PLATELET COUNT 315 10^3/uL (134-434); RBC 2.74 M/mm3 (4.00-5.60); RDW 20.3 % (11.9-15.9); WHITE BLOOD COUNT 6.2 K/mm3 (4.0-10.0)
[2021-11-13] MEDS: CEFTRIAXONE 1 GM in DEXTROSE 5%-WATER - 50 ML IVPB SCH (09:36)
[2021-11-13] MEDS: FLUTICASONE/UMECLIDIN/VILANTER(100-62.5-25 TRELEGY ELLIPTA) INAHLER IH SCH (09:37)
[2021-11-13] MEDS: ASCORBIC ACID 500 MG TABLET (FP) PO SCH (09:37)
[2021-11-13] MEDS: FERROUS SO4 325 MG TABLET (FP) PO SCH (09:37)
[2021-11-13] MEDS: APIXABAN 5 MG TABLET PO SCH ×2 (09:37→21:12)
[2021-11-13] MEDS: CHOLECALCIFEROL (VIT D3) 1,000 UNIT (25 MCG) TABLET PO SCH (09:37)
[2021-11-13] MEDS: ZINC SULFATE 220 MG CAPSULE (FP) PO SCH (09:37)
[2021-11-13] MEDS: FINASTERIDE 5 MG TABLET (FP) PO SCH (09:37)
[2021-11-13] MEDS: DEXAMETHASONE SOD PHOSPHATE 4 MG/1 ML VIAL IVPUSH SCH (09:37)
[2021-11-13 09:40] LABS: ALBUMIN 2.1 g/dl (3.4-5.0); BLOOD UREA NITROGEN 27.4 mg/dL (7-18)
[2021-11-13 09:42] LABS: CALCIUM 8.3 mg/dL (8.5-10.1); CREATININE 0.7 mg/dL (0.55-1.3); MAGNESIUM 2.4 mg/dL (1.8-2.4); TOT PROT 5.3 g/dl (6.4-8.2)
[2021-11-13 09:43] LABS: BILIRUBIN,TOTAL 0.4 mg/dL (0.2-1)
[2021-11-13 09:44] LABS: PHOSPHOROUS 2.6 mg/dL (2.5-4.9)
[2021-11-13] MEDS: AZITHROMYCIN IVPB 500 MG/250 ML BAG IVPB SCH (10:27)
[2021-11-13 10:56] LABS: ERYTHROCYTE SEDIMENTATION RATE 60 mm/hr (0-20)
[2021-11-13] MEDS: REMDESIVIR 100 MG in SODIUM CHLORIDE 250 ML IVPB SCH (12:27)
[2021-11-13] MEDS: ATORVASTATIN CA 20 MG TABLET (FP) PO SCH (21:12)
[2021-11-13] MEDS: PANTOPRAZOLE 40 MG TABLET PO SCH (21:12)
[2021-11-14] MEDS: ALBUTEROL SO4 HFA INHALER IH SCH ×3 (06:08→21:01)
[2021-11-14] MEDS: LEVOTHYROXINE NA 25 MCG TABLET (FP) PO SCH (06:08)
[2021-11-14 09:25] LABS: HEMATOCRIT 28.9 % (35.4-49); HEMOGLOBIN 9.4 GM/dL (11.7-16.9); MCH 30.8 pg (25.7-33.7); MCHC 32.6 g/dl (32.0-35.9); MEAN CELL VOLUME 94.4 fl (80-96); MEAN PLT VOLUME 8.3 fl (7.5-11.1); PLATELET COUNT 401 10^3/uL (134-434); RBC 3.06 M/mm3 (4.00-5.60); RDW 20.4 % (11.9-15.9); WHITE BLOOD COUNT 7.8 K/mm3 (4.0-10.0)
[2021-11-14] MEDS ORDERED: PT OWN MED DRAWER 7, Y5N ONE (09:36)
[2021-11-14] MEDS ORDERED: DEXTROSE 5%-WATER - 50 ML IVPB ONE (09:37)
[2021-11-14] MEDS ORDERED: cefTRIAXone SODIUM 1 GM VIAL ONE (09:37)
[2021-11-14 09:43] LABS: ALBUMIN 2.2 g/dl (3.4-5.0); BILIRUBIN,TOTAL 0.5 mg/dL (0.2-1); CALCIUM 8.5 mg/dL (8.5-10.1); CREATININE 0.7 mg/dL (0.55-1.3); TOT PROT 5.5 g/dl (6.4-8.2)
[2021-11-14 09:44] LABS: MAGNESIUM 2.1 mg/dL (1.8-2.4); PHOSPHOROUS 2.3 mg/dL (2.5-4.9)
[2021-11-14] MEDS: APIXABAN 5 MG TABLET PO SCH ×2 (09:57→21:01)
[2021-11-14] MEDS: FERROUS SO4 325 MG TABLET (FP) PO SCH (09:58)
[2021-11-14] MEDS: FINASTERIDE 5 MG TABLET (FP) PO SCH (09:58)
[2021-11-14] MEDS: ZINC SULFATE 220 MG CAPSULE (FP) PO SCH (09:58)
[2021-11-14] MEDS: CEFTRIAXONE 1 GM in DEXTROSE 5%-WATER - 50 ML IVPB SCH (09:59)
[2021-11-14] MEDS: ASCORBIC ACID 500 MG TABLET (FP) PO SCH (09:59)
[2021-11-14] MEDS: CHOLECALCIFEROL (VIT D3) 1,000 UNIT (25 MCG) TABLET PO SCH (09:59)
[2021-11-14] MEDS: FLUTICASONE/UMECLIDIN/VILANTER(100-62.5-25 TRELEGY ELLIPTA) INAHLER IH SCH (10:01)
[2021-11-14] MEDS: DEXAMETHASONE SOD PHOSPHATE 4 MG/1 ML VIAL IVPUSH SCH (10:01)
[2021-11-14 10:46] LABS: ERYTHROCYTE SEDIMENTATION RATE 45 mm/hr (0-20)
[2021-11-14] MEDS: AZITHROMYCIN IVPB 500 MG/250 ML BAG IVPB SCH (10:55)
[2021-11-14 11:39] LABS: ANISOCYTOSIS 2+; MACROCYTOSIS 0; OVALOCYTE 1+; PLATELET ESTIMATE NORMAL; TARGET CELLS 1+; TEAR DROP CELLS 1+; TOXIC GRANULATION 2+
[2021-11-14] MEDS: REMDESIVIR 100 MG in SODIUM CHLORIDE 250 ML IVPB SCH (13:01)
[2021-11-14] MEDS: ATORVASTATIN CA 20 MG TABLET (FP) PO SCH (21:01)
[2021-11-14] MEDS: PANTOPRAZOLE 40 MG TABLET PO SCH (21:01)
[2021-11-15] MEDS: ALBUTEROL SO4 HFA INHALER IH SCH ×3 (06:04→21:09)
[2021-11-15] MEDS: LEVOTHYROXINE NA 25 MCG TABLET (FP) PO SCH (06:04)
[2021-11-15] MEDS ORDERED: cefTRIAXone SODIUM 1 GM VIAL ONE (09:00)
[2021-11-15] MEDS ORDERED: DEXTROSE 5%-WATER - 50 ML IVPB ONE (09:00)
[2021-11-15] MEDS: FINASTERIDE 5 MG TABLET (FP) PO SCH (10:15)
[2021-11-15] MEDS: ASCORBIC ACID 500 MG TABLET (FP) PO SCH (10:15)
[2021-11-15] MEDS: CHOLECALCIFEROL (VIT D3) 1,000 UNIT (25 MCG) TABLET PO SCH (10:15)
[2021-11-15] MEDS: APIXABAN 5 MG TABLET PO SCH ×2 (10:15→21:09)
[2021-11-15] MEDS: FERROUS SO4 325 MG TABLET (FP) PO SCH (10:15)
[2021-11-15] MEDS: ZINC SULFATE 220 MG CAPSULE (FP) PO SCH (10:15)
[2021-11-15] MEDS: DEXAMETHASONE SOD PHOSPHATE 4 MG/1 ML VIAL IVPUSH SCH (10:16)
[2021-11-15] MEDS: FLUTICASONE/UMECLIDIN/VILANTER(100-62.5-25 TRELEGY ELLIPTA) INAHLER IH SCH (10:16)
[2021-11-15] MEDS: CEFTRIAXONE 1 GM in DEXTROSE 5%-WATER - 50 ML IVPB SCH (10:16)
[2021-11-15] MEDS: ATORVASTATIN CA 20 MG TABLET (FP) PO SCH (21:09)
[2021-11-15] MEDS: PANTOPRAZOLE 40 MG TABLET PO SCH (21:09)
[2021-11-16] MEDS: LEVOTHYROXINE NA 25 MCG TABLET (FP) PO SCH (06:05)
[2021-11-16] MEDS: ALBUTEROL SO4 HFA INHALER IH SCH ×3 (06:05→21:23)
[2021-11-16] MEDS ORDERED: cefTRIAXone SODIUM 1 GM VIAL ONE (08:59)
[2021-11-16] MEDS ORDERED: DEXTROSE 5%-WATER - 50 ML IVPB ONE (08:59)
[2021-11-16] MEDS: DEXAMETHASONE SOD PHOSPHATE 4 MG/1 ML VIAL IVPUSH SCH (10:20)
[2021-11-16] MEDS: CHOLECALCIFEROL (VIT D3) 1,000 UNIT (25 MCG) TABLET PO SCH (10:22)
[2021-11-16] MEDS: FINASTERIDE 5 MG TABLET (FP) PO SCH (10:22)
[2021-11-16] MEDS: ZINC SULFATE 220 MG CAPSULE (FP) PO SCH (10:22)
[2021-11-16] MEDS: APIXABAN 5 MG TABLET PO SCH ×2 (10:22→21:23)
[2021-11-16] MEDS: CEFTRIAXONE 1 GM in DEXTROSE 5%-WATER - 50 ML IVPB SCH (10:22)
[2021-11-16] MEDS: FERROUS SO4 325 MG TABLET (FP) PO SCH (10:22)
[2021-11-16] MEDS: ASCORBIC ACID 500 MG TABLET (FP) PO SCH (10:22)
[2021-11-16] MEDS: FLUTICASONE/UMECLIDIN/VILANTER(100-62.5-25 TRELEGY ELLIPTA) INAHLER IH SCH (10:23)
[2021-11-16] MEDS: PANTOPRAZOLE 40 MG TABLET PO SCH (21:23)
[2021-11-16] MEDS: ATORVASTATIN CA 20 MG TABLET (FP) PO SCH (21:23)
[2021-11-17] MEDS: ALBUTEROL SO4 HFA INHALER IH SCH (05:39)
[2021-11-17] MEDS: LEVOTHYROXINE NA 25 MCG TABLET (FP) PO SCH (06:21)
[2021-11-17 06:59] VITALS: BP 139/79; PULSE 76; TEMP 98.1
[2021-11-17 09:06] LABS: HEMATOCRIT 29.9 % (35.4-49); HEMOGLOBIN 9.5 GM/dL (11.7-16.9); MCHC 31.7 g/dl (32.0-35.9); MEAN CELL VOLUME 94.8 fl (80-96); MEAN PLT VOLUME 8.4 fl (7.5-11.1); PLATELET COUNT 457 10^3/uL (134-434); RBC 3.15 M/mm3 (4.00-5.60); RDW 20.4 % (11.9-15.9); WHITE BLOOD COUNT 17.1 K/mm3 (4.0-10.0)
[2021-11-17 09:16] LABS: ACTIVATED PTT 26.1 SECONDS (25.2-36.5)
[2021-11-17 09:17] LABS: INR 1.55 (0.83-1.09); PROTHROMBIN TIME (PATIENT) 17.9 SEC (9.7-13.0)
[2021-11-17 09:56] LABS: CALCIUM 8.6 mg/dL (8.5-10.1)
[2021-11-17 09:57] LABS: ALBUMIN 2.3 g/dl (3.4-5.0); BLOOD UREA NITROGEN 26.3 mg/dL (7-18); MAGNESIUM 2.3 mg/dL (1.8-2.4)
[2021-11-17 10:00] LABS: CREATININE 0.7 mg/dL (0.55-1.3); PHOSPHOROUS 2.6 mg/dL (2.5-4.9)
[2021-11-17] MEDS ORDERED: DEXAMETHASONE 4 MG TABLET (FP) PO SCH (10:00)
[2021-11-17 10:02] LABS: BILIRUBIN,TOTAL 0.5 mg/dL (0.2-1); TOT PROT 5.7 g/dl (6.4-8.2)
[2021-11-17 11:23] LABS: ANISOCYTOSIS 2+; MACROCYTOSIS 2+; OVALOCYTE 1+; PLATELET ESTIMATE NORMAL; TEAR DROP CELLS 1+; TOXIC GRANULATION 2+
[2021-11-17] MEDS: FINASTERIDE 5 MG TABLET (FP) PO SCH (11:53)
[2021-11-17] MEDS: ASCORBIC ACID 500 MG TABLET (FP) PO SCH (11:53)
[2021-11-17] MEDS: CHOLECALCIFEROL (VIT D3) 1,000 UNIT (25 MCG) TABLET PO SCH (11:53)
[2021-11-17] MEDS: ZINC SULFATE 220 MG CAPSULE (FP) PO SCH (11:53)
[2021-11-17] MEDS: APIXABAN 5 MG TABLET PO SCH (11:53)
[2021-11-17] MEDS: FLUTICASONE/UMECLIDIN/VILANTER(100-62.5-25 TRELEGY ELLIPTA) INAHLER IH SCH (11:54)
[2021-11-17] MEDS: FERROUS SO4 325 MG TABLET (FP) PO SCH (11:54)
[2021-11-17 12:08] LABS: SARS-CoV-2 NAA Detected (Not Detected)
== END 2021-11-17 14:26 | DRG 177 ==
LOC: JER 14:55 → JERBED 16:09 → J8W 22:26
PROVIDERS: ADMIT Internal Medicine; ATTEND Nurse Practitioner Acute Care
PROC: XW033E5 Introduction of Remdesivir Anti-infective into Peripheral Vein, Percutaneous Approach, New Technology Group 5 (ICD-10-PCS; principal; 2021-11-10)
DX: U07.1 COVID-19 (principal); J96.21 Acute and chronic respiratory failure with hypoxia; J12.82 Pneumonia due to coronavirus disease 2019; N17.9 Acute kidney failure, unspecified; J90 Pleural effusion, not elsewhere classified; J44.9 Chronic obstructive pulmonary disease, unspecified; I48.0 Paroxysmal atrial fibrillation; N40.0 Benign prostatic hyperplasia without lower urinary tract symptoms; E03.9 Hypothyroidism, unspecified; K21.9 Gastro-esophageal reflux disease without esophagitis; K76.0 Fatty (change of) liver, not elsewhere classified
CPT/HCPCS: 36415; 71045-TC-FY; 80053; 81003; 82550; 82728; 82803; 83615; 83735; 84100; 84484; 85025; 85379; 85610; 85651; 85730; 86140; 87040; 87070; 87086; 87186; 87205; 87804; 87899; 93005; 93010; 94761; 97116-GP; 97161-GP; 99285-25; C9399; C9803-CS; U0003; U0005

== ENCOUNTER 2021-12-16 18:26 | Inpatient (IN) | payer OTHER, BC ==
[2021-12-16 18:50] VITALS: BMI 24.4
[2021-12-16 18:56] LABS: VENOUS BASE EXCESS -1.5 mmol/L (-2-2); VENOUS O2 SATURATION 67.3 % (70-80); VENOUS PCO2 34.3 mmHg (38-52); VENOUS PH 7.435 (7.310-7.410)
[2021-12-16 19:00] LABS: BASO % 0.4 % (0-2.0); HEMATOCRIT 19.4 % (35.4-49); MCH 30.6 pg (25.7-33.7); MCHC 32.3 g/dl (32.0-35.9); MEAN CELL VOLUME 94.6 fl (80-96); MEAN PLT VOLUME 8.4 fl (7.5-11.1); MONO % 1.3 % (3.8-10.2); NEUT % 96.3 % (42.8-82.8); PLATELET COUNT 199 10^3/uL (134-434); RBC 2.05 M/mm3 (4.00-5.60); RDW 18.7 % (11.9-15.9); WHITE BLOOD COUNT 10.5 K/mm3 (4.0-10.0)
[2021-12-16 19:03] LABS: HEMOGLOBIN 6.3 GM/dL (11.7-16.9)
[2021-12-16 19:05] LABS: INR 1.65 (0.83-1.09); PROTHROMBIN TIME (PATIENT) 19.1 SEC (9.7-13.0)
[2021-12-16 19:17] LABS: EPI CELLS 3 /uL (0-25.1); HYALINE CASTS 2 /uL (0-3.1); URINE APPEARANCE CLOUDY; URINE BACTERIA 8 /uL (0-1359); URINE BILIRUBIN NEGATIVE (NEGATIVE); URINE COLOR YELLOW; URINE GLUCOSE (UA) NEGATIVE (NEGATIVE); URINE KETONE NEGATIVE (NEGATIVE); URINE LEUK ESTERASE NEGATIVE (NEGATIVE); URINE NITRITE NEGATIVE (NEGATIVE); URINE PROTEIN TRACE (NEGATIVE); URINE WBC 11 /uL (0-25.8)
[2021-12-16 19:23] LABS: CALCIUM 8.2 mg/dL (8.5-10.1)
[2021-12-16 19:24] LABS: BLOOD UREA NITROGEN 27.2 mg/dL (7-18)
[2021-12-16 19:26] LABS: ANISOCYTOSIS 3+; MACROCYTOSIS 0; OVALOCYTE 1+; PHOSPHOROUS 3.1 mg/dL (2.5-4.9); PLATELET ESTIMATE NORMAL; TARGET CELLS 1+
[2021-12-16 19:27] LABS: CREATININE 0.9 mg/dL (0.55-1.3)
[2021-12-16 19:28] LABS: BILIRUBIN,TOTAL 0.3 mg/dL (0.2-1); TOT PROT 5.1 g/dl (6.4-8.2)
[2021-12-16 19:30] LABS: LACTIC ACID 5.7 mmol/L (0.4-2.0); N-TERMINAL BNP 2629.7 pg/ml (5-450)
[2021-12-16 19:35] LABS: URINE RBC 74.7 /uL (0-23.9)
[2021-12-16] MEDS ORDERED: AZITHROMYCIN IVPB 500 MG in DEXTROSE 5%-WATER - 250 ML IVPB ONE (20:25)
[2021-12-16] MEDS ORDERED: VANCOMYCIN/WATER 1,250 MG/250 ML BAG IVPB ONE (20:26)
[2021-12-16] MEDS ORDERED: CEFEPIME HCL/D5W 2 GM/50 ML BAG IVPB ONE (20:26)
[2021-12-16] MEDS ORDERED: AZITHROMYCIN IVPB 500 MG/250 ML BAG IVPB ONE (21:38)
[2021-12-17] MEDS ORDERED: CEFEPIME 2 GM in DEXTROSE 5%-WATER - 50 ML IVPB ONE (01:30)
[2021-12-17 08:03] LABS: CALCIUM 7.7 mg/dL (8.5-10.1); HEMATOCRIT 22.1 % (35.4-49); HEMOGLOBIN 7.2 GM/dL (11.7-16.9); MCH 29.8 pg (25.7-33.7); MCHC 32.4 g/dl (32.0-35.9); MEAN CELL VOLUME 91.9 fl (80-96); MEAN PLT VOLUME 8.9 fl (7.5-11.1); PLATELET COUNT 161 10^3/uL (134-434); RBC 2.41 M/mm3 (4.00-5.60); RDW 17.8 % (11.9-15.9); WHITE BLOOD COUNT 8.8 K/mm3 (4.0-10.0)
[2021-12-17 08:04] LABS: ALBUMIN 1.9 g/dl (3.4-5.0)
[2021-12-17 08:07] LABS: CREATININE 0.5 mg/dL (0.55-1.3)
[2021-12-17 08:08] LABS: TOT PROT 4.7 g/dl (6.4-8.2)
[2021-12-17 08:09] LABS: BILIRUBIN,TOTAL 0.5 mg/dL (0.2-1)
[2021-12-17] MEDS ORDERED: PIPERACILLIN/TAZOB 4.5 GM 4.5 GM in DEXTROSE 5%-WATER 100 ML IVPB SCH (08:30)
[2021-12-17] MEDS ORDERED: FUROSEMIDE 40 MG/4 ML INJECTABLE VIAL IVPUSH ONE ×2 (08:37→17:30)
[2021-12-17] MEDS ORDERED: PIPERACILLIN/TAZOBACTAM 4.5 GM VIAL IVPB ONE ×2 (09:02→17:21)
[2021-12-17] MEDS ORDERED: DEXTROSE 5%-WATER 100 ML IVPB ONE ×2 (09:02→17:22)
[2021-12-17 10:23] LABS: ANISOCYTOSIS 1+; MACROCYTOSIS 0; OVALOCYTE 1+; PLATELET ESTIMATE NORMAL; TOXIC GRANULATION 2+
[2021-12-17 11:09] LABS: LACTIC ACID 3.8 mmol/L (0.4-2.0)
[2021-12-17] MEDS ORDERED: VANCOMYCIN 1 GRAM (PRE-DOCKED) 1,000 MG/250 ML BAG IVPB SCH (12:00)
[2021-12-17] MEDS: ALBUTEROL SO4 2.5/IPRATROPIUM 0.5 INH SOL 3 ML VIAL.NEB. NEB SCH ×3 (12:00→20:31)
[2021-12-17] MEDS: methylPREDNISolone NA SUCC 40 MG/1 ML VIAL IVPUSH SCH ×2 (12:17→17:44)
[2021-12-17] MEDS: PIPERACILLIN/TAZOB 4.5 GM 4.5 GM in DEXTROSE 5%-WATER 100 ML IVPB SCH (17:44)
[2021-12-17] MEDS: PANTOPRAZOLE 40 MG TABLET PO SCH (17:50)
[2021-12-17] MEDS: VANCOMYCIN 1 GRAM (PRE-DOCKED) 1,000 MG/250 ML BAG IVPB SCH (18:46)
[2021-12-17] MEDS: BUDESONIDE/FORMETEROL FUMARATE 160/4.5 mcg INHALER IH SCH (21:22)
[2021-12-18] MEDS ORDERED: PIPERACILLIN/TAZOBACTAM 4.5 GM VIAL IVPB ONE ×3 (01:43→17:22)
[2021-12-18] MEDS ORDERED: DEXTROSE 5%-WATER 100 ML IVPB ONE ×3 (01:44→17:23)
[2021-12-18] MEDS: PIPERACILLIN/TAZOB 4.5 GM 4.5 GM in DEXTROSE 5%-WATER 100 ML IVPB SCH ×3 (01:55→17:50)
[2021-12-18] MEDS: methylPREDNISolone NA SUCC 40 MG/1 ML VIAL IVPUSH SCH ×3 (01:55→17:47)
[2021-12-18] MEDS: VANCOMYCIN 1 GRAM (PRE-DOCKED) 1,000 MG/250 ML BAG IVPB SCH ×2 (01:59→17:50)
[2021-12-18 07:27] LABS: HEMATOCRIT 27.1 % (35.4-49); MCH 30.3 pg (25.7-33.7); MCHC 33.3 g/dl (32.0-35.9); MEAN CELL VOLUME 90.8 fl (80-96); MEAN PLT VOLUME 8.9 fl (7.5-11.1); PLATELET COUNT 154 10^3/uL (134-434); RBC 2.99 M/mm3 (4.00-5.60); RDW 16.7 % (11.9-15.9); WHITE BLOOD COUNT 9.7 K/mm3 (4.0-10.0)
[2021-12-18 07:37] LABS: CALCIUM 7.6 mg/dL (8.5-10.1)
[2021-12-18 07:38] LABS: ALBUMIN 1.9 g/dl (3.4-5.0); BLOOD UREA NITROGEN 18.8 mg/dL (7-18)
[2021-12-18 07:41] LABS: CREATININE 0.7 mg/dL (0.55-1.3)
[2021-12-18 07:43] LABS: BILIRUBIN,TOTAL 0.7 mg/dL (0.2-1); TOT PROT 4.9 g/dl (6.4-8.2)
[2021-12-18] MEDS: ALBUTEROL SO4 2.5/IPRATROPIUM 0.5 INH SOL 3 ML VIAL.NEB. NEB SCH ×4 (08:10→20:15)
[2021-12-18 09:53] LABS: ANISOCYTOSIS 1+; MACROCYTOSIS 0; PLATELET ESTIMATE DECREASED
[2021-12-18] MEDS: PANTOPRAZOLE 40 MG TABLET PO SCH (10:06)
[2021-12-18] MEDS: BUDESONIDE/FORMETEROL FUMARATE 160/4.5 mcg INHALER IH SCH ×2 (10:09→21:47)
[2021-12-18 14:06] LABS: SARS-CoV-2 NAA Not Detected (Not Detected)
[2021-12-18 16:32] LABS: HEMATOCRIT 24.1 % (35.4-49); HEMOGLOBIN 7.9 GM/dL (11.7-16.9); MCH 29.7 pg (25.7-33.7); MCHC 32.6 g/dl (32.0-35.9); MEAN CELL VOLUME 91.1 fl (80-96); PLATELET COUNT 155 10^3/uL (134-434); RBC 2.64 M/mm3 (4.00-5.60); WHITE BLOOD COUNT 10.9 K/mm3 (4.0-10.0)
[2021-12-19] MEDS ORDERED: DEXTROSE 5%-WATER 100 ML IVPB ONE ×4 (02:32→21:22)
[2021-12-19] MEDS ORDERED: PIPERACILLIN/TAZOBACTAM 4.5 GM VIAL IVPB ONE ×2 (02:32→08:21)
[2021-12-19] MEDS: PIPERACILLIN/TAZOB 4.5 GM 4.5 GM in DEXTROSE 5%-WATER 100 ML IVPB SCH ×2 (03:00→09:01)
[2021-12-19] MEDS: methylPREDNISolone NA SUCC 40 MG/1 ML VIAL IVPUSH SCH (03:00)
[2021-12-19] MEDS: VANCOMYCIN 1 GRAM (PRE-DOCKED) 1,000 MG/250 ML BAG IVPB SCH (03:00)
[2021-12-19 07:29] LABS: HEMATOCRIT 27.3 % (35.4-49); HEMOGLOBIN 9.2 GM/dL (11.7-16.9); MCH 29.9 pg (25.7-33.7); MCHC 33.7 g/dl (32.0-35.9); MEAN CELL VOLUME 88.9 fl (80-96); MEAN PLT VOLUME 8.4 fl (7.5-11.1); PLATELET COUNT 144 10^3/uL (134-434); RBC 3.07 M/mm3 (4.00-5.60); RDW 16.6 % (11.9-15.9); WHITE BLOOD COUNT 11.1 K/mm3 (4.0-10.0)
[2021-12-19] MEDS: ALBUTEROL SO4 2.5/IPRATROPIUM 0.5 INH SOL 3 ML VIAL.NEB. NEB SCH ×4 (08:55→20:28)
[2021-12-19] MEDS: BUDESONIDE/FORMETEROL FUMARATE 160/4.5 mcg INHALER IH SCH ×2 (09:02→21:30)
[2021-12-19] MEDS: PANTOPRAZOLE 40 MG TABLET PO SCH (09:02)
[2021-12-19 09:16] LABS: ANISOCYTOSIS 0; HELMET CELLS 0; HOWELL-JOLLY BODIES 0; MACROCYTOSIS 0; OVALOCYTE 0; PLATELET ESTIMATE DECREASED; ROULEAU 0; SICKELED CELLS 0; TARGET CELLS 0; TEAR DROP CELLS 0; TOXIC GRANULATION 0
[2021-12-19] MEDS ORDERED: SODIUM CHLORIDE 100 ML IVPB ONE ×2 (12:56→18:09)
[2021-12-19] MEDS ORDERED: AMPICILLIN SODIUM 2 GM VIAL ONE ×2 (12:56→18:09)
[2021-12-19] MEDS: AMPICILLIN - 2 GM in SODIUM CHLORIDE 100 ML IVPB SCH ×4 (13:01→22:09)
[2021-12-19] MEDS: CEFTRIAXONE 2 GM in DEXTROSE 5%-WATER 100 ML IVPB SCH ×2 (13:01→22:09)
[2021-12-20] MEDS: AMPICILLIN - 2 GM in SODIUM CHLORIDE 100 ML IVPB SCH ×6 (03:40→21:46)
[2021-12-20 07:02] LABS: HEMATOCRIT 32.7 % (35.4-49); HEMOGLOBIN 10.7 GM/dL (11.7-16.9); MCH 29.7 pg (25.7-33.7); MCHC 32.8 g/dl (32.0-35.9); MEAN CELL VOLUME 90.6 fl (80-96); MEAN PLT VOLUME 8.4 fl (7.5-11.1); PLATELET COUNT 171 10^3/uL (134-434); RBC 3.62 M/mm3 (4.00-5.60); RDW 16.9 % (11.9-15.9); WHITE BLOOD COUNT 13.1 K/mm3 (4.0-10.0)
[2021-12-20 07:47] LABS: CALCIUM 7.9 mg/dL (8.5-10.1)
[2021-12-20 07:48] LABS: BLOOD UREA NITROGEN 12.2 mg/dL (7-18)
[2021-12-20 07:51] LABS: ALBUMIN 1.9 g/dl (3.4-5.0); CREATININE 0.6 mg/dL (0.55-1.3)
[2021-12-20 07:52] LABS: BILIRUBIN,TOTAL 0.5 mg/dL (0.2-1)
[2021-12-20 07:53] LABS: TOT PROT 5.2 g/dl (6.4-8.2)
[2021-12-20] MEDS: ALBUTEROL SO4 2.5/IPRATROPIUM 0.5 INH SOL 3 ML VIAL.NEB. NEB SCH ×4 (08:30→20:10)
[2021-12-20] MEDS ORDERED: POTASSIUM CHLORIDE TABS 20 MEQ TABLET.ER (FP) PO ONE (09:00)
[2021-12-20] MEDS: MULTIVITAMINS (DAILY MVI) TABLET (FP) PO SCH (09:15)
[2021-12-20] MEDS: PANTOPRAZOLE 40 MG TABLET PO SCH (09:15)
[2021-12-20] MEDS: FINASTERIDE 5 MG TABLET (FP) PO SCH (09:15)
[2021-12-20] MEDS: CEFTRIAXONE 2 GM in DEXTROSE 5%-WATER 100 ML IVPB SCH (09:15)
[2021-12-20] MEDS: ASCORBIC ACID 500 MG TABLET (FP) PO SCH (09:15)
[2021-12-20] MEDS ORDERED: DEXTROSE 5%-WATER 100 ML IVPB ONE (09:38)
[2021-12-20] MEDS ORDERED: ZINC SULFATE 220 MG CAPSULE (FP) PO SCH (10:00)
[2021-12-20 10:16] LABS: ANISOCYTOSIS 0; HELMET CELLS 0; HOWELL-JOLLY BODIES 0; MACROCYTOSIS 0; OVALOCYTE 0; PLATELET ESTIMATE NORMAL; ROULEAU 0; SICKELED CELLS 0; TARGET CELLS 0; TEAR DROP CELLS 0; TOXIC GRANULATION 0
[2021-12-20] MEDS: BUDESONIDE/FORMETEROL FUMARATE 160/4.5 mcg INHALER IH SCH ×2 (11:06→21:47)
[2021-12-20] MEDS: ERTAPENEM SODIUM 1 GM in SODIUM CHLORIDE 50 ML IVPB SCH (15:50)
[2021-12-20] MEDS ORDERED: AMPICILLIN SODIUM 2 GM VIAL ONE (21:42)
[2021-12-20] MEDS ORDERED: SODIUM CHLORIDE 100 ML IVPB ONE (21:43)
[2021-12-20] MEDS: ATORVASTATIN CA 20 MG TABLET (FP) PO SCH (21:47)
[2021-12-21] MEDS ORDERED: AMPICILLIN SODIUM 2 GM VIAL ONE ×7 (01:57→23:41)
[2021-12-21] MEDS ORDERED: SODIUM CHLORIDE 100 ML IVPB ONE ×7 (01:57→23:41)
[2021-12-21] MEDS: AMPICILLIN - 2 GM in SODIUM CHLORIDE 100 ML IVPB SCH ×6 (02:39→21:16)
[2021-12-21] MEDS: LEVOTHYROXINE NA 25 MCG TABLET (FP) PO SCH (06:21)
[2021-12-21 07:36] LABS: HEMATOCRIT 34.5 % (35.4-49); MCH 29.1 pg (25.7-33.7); MEAN CELL VOLUME 90.9 fl (80-96); MEAN PLT VOLUME 8.6 fl (7.5-11.1); PLATELET COUNT 165 10^3/uL (134-434); RBC 3.79 M/mm3 (4.00-5.60); RDW 16.8 % (11.9-15.9); WHITE BLOOD COUNT 14.1 K/mm3 (4.0-10.0)
[2021-12-21 08:08] LABS: CALCIUM 7.7 mg/dL (8.5-10.1)
[2021-12-21 08:09] LABS: BLOOD UREA NITROGEN 13.7 mg/dL (7-18); MAGNESIUM 2.1 mg/dL (1.8-2.4)
[2021-12-21 08:12] LABS: CREATININE 0.6 mg/dL (0.55-1.3)
[2021-12-21] MEDS: ALBUTEROL SO4 2.5/IPRATROPIUM 0.5 INH SOL 3 ML VIAL.NEB. NEB SCH ×4 (08:23→20:33)
[2021-12-21] MEDS: ASCORBIC ACID 500 MG TABLET (FP) PO SCH (10:29)
[2021-12-21] MEDS: MULTIVITAMINS (DAILY MVI) TABLET (FP) PO SCH (10:29)
[2021-12-21] MEDS: FINASTERIDE 5 MG TABLET (FP) PO SCH (10:29)
[2021-12-21] MEDS: PANTOPRAZOLE 40 MG TABLET PO SCH (10:29)
[2021-12-21] MEDS: ERTAPENEM SODIUM 1 GM in SODIUM CHLORIDE 50 ML IVPB SCH (10:29)
[2021-12-21] MEDS: BUDESONIDE/FORMETEROL FUMARATE 160/4.5 mcg INHALER IH SCH ×2 (11:25→21:02)
[2021-12-21 12:03] LABS: ANISOCYTOSIS 1+; MACROCYTOSIS 0; TARGET CELLS 1+
[2021-12-21 12:05] LABS: PLATELET ESTIMATE NORMAL
[2021-12-21] MEDS: ATORVASTATIN CA 20 MG TABLET (FP) PO SCH (21:02)
[2021-12-22] MEDS: AMPICILLIN - 2 GM in SODIUM CHLORIDE 100 ML IVPB SCH ×6 (01:15→23:01)
[2021-12-22] MEDS ORDERED: AMPICILLIN SODIUM 2 GM VIAL ONE ×2 (04:55→10:07)
[2021-12-22] MEDS ORDERED: SODIUM CHLORIDE 100 ML IVPB ONE ×2 (04:56→10:07)
[2021-12-22] MEDS: LEVOTHYROXINE NA 25 MCG TABLET (FP) PO SCH (06:01)
[2021-12-22] MEDS: ALBUTEROL SO4 2.5/IPRATROPIUM 0.5 INH SOL 3 ML VIAL.NEB. NEB SCH (08:00)
[2021-12-22] MEDS: FINASTERIDE 5 MG TABLET (FP) PO SCH (10:12)
[2021-12-22] MEDS: ASCORBIC ACID 500 MG TABLET (FP) PO SCH (10:12)
[2021-12-22] MEDS: ERTAPENEM SODIUM 1 GM in SODIUM CHLORIDE 50 ML IVPB SCH (10:12)
[2021-12-22] MEDS: MULTIVITAMINS (DAILY MVI) TABLET (FP) PO SCH (10:12)
[2021-12-22] MEDS: PANTOPRAZOLE 40 MG TABLET PO SCH (10:12)
[2021-12-22] MEDS: BUDESONIDE/FORMETEROL FUMARATE 160/4.5 mcg INHALER IH SCH ×2 (10:29→23:00)
[2021-12-22 13:51] LABS: HEMATOCRIT 33.7 % (35.4-49); HEMOGLOBIN 10.8 GM/dL (11.7-16.9); MCHC 31.9 g/dl (32.0-35.9); MEAN CELL VOLUME 90.7 fl (80-96); MEAN PLT VOLUME 8.5 fl (7.5-11.1); PLATELET COUNT 131 10^3/uL (134-434); RBC 3.72 M/mm3 (4.00-5.60); RDW 16.7 % (11.9-15.9); WHITE BLOOD COUNT 13.5 K/mm3 (4.0-10.0)
[2021-12-22 14:18] LABS: BLOOD UREA NITROGEN 13.3 mg/dL (7-18); CALCIUM 7.7 mg/dL (8.5-10.1)
[2021-12-22 14:19] LABS: ALBUMIN 1.6 g/dl (3.4-5.0)
[2021-12-22 14:22] LABS: CREATININE 0.5 mg/dL (0.55-1.3)
[2021-12-22 14:23] LABS: BILIRUBIN,TOTAL 0.5 mg/dL (0.2-1); TOT PROT 4.9 g/dl (6.4-8.2)
[2021-12-22 14:46] LABS: ANISOCYTOSIS 1+; MACROCYTOSIS 0; PLATELET ESTIMATE NORMAL
[2021-12-22] MEDS: ATORVASTATIN CA 20 MG TABLET (FP) PO SCH (23:00)
[2021-12-23] MEDS: AMPICILLIN - 2 GM in SODIUM CHLORIDE 100 ML IVPB SCH ×6 (01:47→22:02)
[2021-12-23] MEDS: LEVOTHYROXINE NA 25 MCG TABLET (FP) PO SCH (06:08)
[2021-12-23 07:47] LABS: HEMATOCRIT 31.3 % (35.4-49); MCH 29.1 pg (25.7-33.7); MCHC 31.9 g/dl (32.0-35.9); MEAN PLT VOLUME 8.8 fl (7.5-11.1); PLATELET COUNT 125 10^3/uL (134-434); RBC 3.44 M/mm3 (4.00-5.60); RDW 16.8 % (11.9-15.9); WHITE BLOOD COUNT 13.1 K/mm3 (4.0-10.0)
[2021-12-23 08:36] LABS: BLOOD UREA NITROGEN 12.5 mg/dL (7-18); CALCIUM 7.9 mg/dL (8.5-10.1)
[2021-12-23 08:37] LABS: ALBUMIN 1.5 g/dl (3.4-5.0)
[2021-12-23 08:40] LABS: CREATININE 0.5 mg/dL (0.55-1.3)
[2021-12-23 08:41] LABS: BILIRUBIN,TOTAL 0.4 mg/dL (0.2-1); TOT PROT 4.6 g/dl (6.4-8.2)
[2021-12-23] MEDS: FINASTERIDE 5 MG TABLET (FP) PO SCH (10:05)
[2021-12-23] MEDS: BUDESONIDE/FORMETEROL FUMARATE 160/4.5 mcg INHALER IH SCH ×2 (10:06→22:03)
[2021-12-23] MEDS: PANTOPRAZOLE 40 MG TABLET PO SCH (10:06)
[2021-12-23] MEDS: ASCORBIC ACID 500 MG TABLET (FP) PO SCH (10:06)
[2021-12-23 11:30] LABS: ANISOCYTOSIS 2+; MACROCYTOSIS 0; OVALOCYTE 1+; PLATELET ESTIMATE DECREASED
[2021-12-23] MEDS: ERTAPENEM SODIUM 1 GM in SODIUM CHLORIDE 50 ML IVPB SCH (11:30)
[2021-12-23] MEDS: MULTIVITAMINS (DAILY MVI) TABLET (FP) PO SCH (11:30)
[2021-12-23] MEDS: ATORVASTATIN CA 20 MG TABLET (FP) PO SCH (22:03)
[2021-12-24] MEDS: AMPICILLIN - 2 GM in SODIUM CHLORIDE 100 ML IVPB SCH ×6 (01:55→21:25)
[2021-12-24] MEDS: LEVOTHYROXINE NA 25 MCG TABLET (FP) PO SCH (06:25)
[2021-12-24 07:28] LABS: HEMATOCRIT 29.8 % (35.4-49); HEMOGLOBIN 9.8 GM/dL (11.7-16.9); MCH 29.6 pg (25.7-33.7); MEAN CELL VOLUME 89.8 fl (80-96); MEAN PLT VOLUME 8.4 fl (7.5-11.1); PLATELET COUNT 125 10^3/uL (134-434); RBC 3.32 M/mm3 (4.00-5.60); RDW 16.3 % (11.9-15.9); WHITE BLOOD COUNT 10.8 K/mm3 (4.0-10.0)
[2021-12-24 07:42] LABS: ALBUMIN 1.5 g/dl (3.4-5.0); BLOOD UREA NITROGEN 13.2 mg/dL (7-18); CALCIUM 7.4 mg/dL (8.5-10.1)
[2021-12-24 07:45] LABS: CREATININE 0.4 mg/dL (0.55-1.3)
[2021-12-24 07:47] LABS: BILIRUBIN,TOTAL 0.3 mg/dL (0.2-1); TOT PROT 4.5 g/dl (6.4-8.2)
[2021-12-24] MEDS: PANTOPRAZOLE 40 MG TABLET PO SCH (09:38)
[2021-12-24] MEDS: FINASTERIDE 5 MG TABLET (FP) PO SCH (09:39)
[2021-12-24] MEDS: MULTIVITAMINS (DAILY MVI) TABLET (FP) PO SCH (09:39)
[2021-12-24] MEDS: ASCORBIC ACID 500 MG TABLET (FP) PO SCH (09:39)
[2021-12-24] MEDS: ERTAPENEM SODIUM 1 GM in SODIUM CHLORIDE 50 ML IVPB SCH (11:47)
[2021-12-24] MEDS: BUDESONIDE/FORMETEROL FUMARATE 160/4.5 mcg INHALER IH SCH ×2 (11:51→21:26)
[2021-12-24] MEDS ORDERED: POTASSIUM CHLORIDE TABS 10 MEQ TABLET.ER (FP) PO ONE ×2 (13:27→15:00)
[2021-12-24] MEDS ORDERED: AMPICILLIN SODIUM 2 GM VIAL ONE ×3 (14:36→21:13)
[2021-12-24] MEDS ORDERED: SODIUM CHLORIDE 100 ML IVPB ONE ×3 (14:36→21:14)
[2021-12-24] MEDS: ATORVASTATIN CA 20 MG TABLET (FP) PO SCH (21:25)
[2021-12-25] MEDS ORDERED: AMPICILLIN SODIUM 2 GM VIAL ONE ×6 (01:43→21:39)
[2021-12-25] MEDS ORDERED: SODIUM CHLORIDE 100 ML IVPB ONE ×6 (01:44→21:40)
[2021-12-25] MEDS: AMPICILLIN - 2 GM in SODIUM CHLORIDE 100 ML IVPB SCH ×6 (01:48→21:45)
[2021-12-25] MEDS: LEVOTHYROXINE NA 25 MCG TABLET (FP) PO SCH (06:52)
[2021-12-25] MEDS: ERTAPENEM SODIUM 1 GM in SODIUM CHLORIDE 50 ML IVPB SCH (09:09)
[2021-12-25] MEDS: FINASTERIDE 5 MG TABLET (FP) PO SCH (09:10)
[2021-12-25] MEDS: ASCORBIC ACID 500 MG TABLET (FP) PO SCH (09:10)
[2021-12-25] MEDS: PANTOPRAZOLE 40 MG TABLET PO SCH (09:10)
[2021-12-25] MEDS: BUDESONIDE/FORMETEROL FUMARATE 160/4.5 mcg INHALER IH SCH ×2 (09:33→21:45)
[2021-12-25] MEDS: MULTIVITAMINS (DAILY MVI) TABLET (FP) PO SCH (11:25)
[2021-12-25 16:05] LABS: HEMATOCRIT 30.4 % (35.4-49); HEMOGLOBIN 10.1 GM/dL (11.7-16.9); MCH 29.8 pg (25.7-33.7); MCHC 33.4 g/dl (32.0-35.9); MEAN CELL VOLUME 89.3 fl (80-96); MEAN PLT VOLUME 8.2 fl (7.5-11.1); PLATELET COUNT 123 10^3/uL (134-434); RDW 16.5 % (11.9-15.9); WHITE BLOOD COUNT 11.2 K/mm3 (4.0-10.0)
[2021-12-25 16:26] LABS: CALCIUM 7.4 mg/dL (8.5-10.1)
[2021-12-25 16:27] LABS: BLOOD UREA NITROGEN 12.6 mg/dL (7-18)
[2021-12-25 16:30] LABS: CREATININE 0.6 mg/dL (0.55-1.3)
[2021-12-25] MEDS: ATORVASTATIN CA 20 MG TABLET (FP) PO SCH (21:44)
[2021-12-26] MEDS ORDERED: AMPICILLIN SODIUM 2 GM VIAL ONE ×6 (00:47→21:08)
[2021-12-26] MEDS ORDERED: SODIUM CHLORIDE 100 ML IVPB ONE ×6 (00:47→21:08)
[2021-12-26] MEDS: AMPICILLIN - 2 GM in SODIUM CHLORIDE 100 ML IVPB SCH ×6 (01:47→21:36)
[2021-12-26] MEDS: LEVOTHYROXINE NA 25 MCG TABLET (FP) PO SCH (06:04)
[2021-12-26 07:47] LABS: HEMATOCRIT 31.3 % (35.4-49); HEMOGLOBIN 10.4 GM/dL (11.7-16.9); MCH 29.8 pg (25.7-33.7); MCHC 33.3 g/dl (32.0-35.9); MEAN CELL VOLUME 89.5 fl (80-96); MEAN PLT VOLUME 7.9 fl (7.5-11.1); PLATELET COUNT 137 10^3/uL (134-434); RDW 16.2 % (11.9-15.9); WHITE BLOOD COUNT 16.1 K/mm3 (4.0-10.0)
[2021-12-26 08:03] LABS: CALCIUM 7.5 mg/dL (8.5-10.1)
[2021-12-26 08:04] LABS: ALBUMIN 1.5 g/dl (3.4-5.0); BLOOD UREA NITROGEN 10.4 mg/dL (7-18)
[2021-12-26 08:07] LABS: CREATININE 0.5 mg/dL (0.55-1.3)
[2021-12-26 08:09] LABS: BILIRUBIN,TOTAL 0.4 mg/dL (0.2-1); TOT PROT 4.9 g/dl (6.4-8.2)
[2021-12-26] MEDS: FINASTERIDE 5 MG TABLET (FP) PO SCH (10:03)
[2021-12-26] MEDS: PANTOPRAZOLE 40 MG TABLET PO SCH (10:03)
[2021-12-26] MEDS: MULTIVITAMINS (DAILY MVI) TABLET (FP) PO SCH (10:04)
[2021-12-26] MEDS: ASCORBIC ACID 500 MG TABLET (FP) PO SCH (10:04)
[2021-12-26] MEDS: BUDESONIDE/FORMETEROL FUMARATE 160/4.5 mcg INHALER IH SCH ×2 (10:05→21:37)
[2021-12-26] MEDS: ERTAPENEM SODIUM 1 GM in SODIUM CHLORIDE 50 ML IVPB SCH (11:00)
[2021-12-26] MEDS: POTASSIUM CHLORIDE TABS 20 MEQ TABLET.ER (FP) PO SCH ×2 (13:25→17:29)
[2021-12-26] MEDS: ATORVASTATIN CA 20 MG TABLET (FP) PO SCH (21:36)
[2021-12-27] MEDS ORDERED: SODIUM CHLORIDE 100 ML IVPB ONE ×6 (04:14→21:57)
[2021-12-27] MEDS ORDERED: AMPICILLIN SODIUM 2 GM VIAL ONE ×6 (04:14→21:57)
[2021-12-27] MEDS: AMPICILLIN - 2 GM in SODIUM CHLORIDE 100 ML IVPB SCH ×6 (04:18→22:03)
[2021-12-27] MEDS: LEVOTHYROXINE NA 25 MCG TABLET (FP) PO SCH (07:10)
[2021-12-27 07:36] LABS: HEMATOCRIT 30.3 % (35.4-49); HEMOGLOBIN 9.8 GM/dL (11.7-16.9); MCH 29.1 pg (25.7-33.7); MCHC 32.4 g/dl (32.0-35.9); MEAN CELL VOLUME 89.8 fl (80-96); MEAN PLT VOLUME 8.5 fl (7.5-11.1); PLATELET COUNT 136 10^3/uL (134-434); RBC 3.37 M/mm3 (4.00-5.60); RDW 16.2 % (11.9-15.9); WHITE BLOOD COUNT 18.2 K/mm3 (4.0-10.0)
[2021-12-27 07:49] LABS: ALBUMIN 1.4 g/dl (3.4-5.0); BLOOD UREA NITROGEN 11.3 mg/dL (7-18)
[2021-12-27 07:51] LABS: CALCIUM 7.7 mg/dL (8.5-10.1)
[2021-12-27 07:52] LABS: CREATININE 0.5 mg/dL (0.55-1.3); MAGNESIUM 2.1 mg/dL (1.8-2.4)
[2021-12-27 07:53] LABS: BILIRUBIN,TOTAL 0.4 mg/dL (0.2-1); TOT PROT 4.7 g/dl (6.4-8.2)
[2021-12-27 09:28] LABS: ANISOCYTOSIS 0; HELMET CELLS 0; HOWELL-JOLLY BODIES 0; MACROCYTOSIS 0; OVALOCYTE 0; ROULEAU 0; SICKELED CELLS 0; TARGET CELLS 0; TEAR DROP CELLS 0; TOXIC GRANULATION 0
[2021-12-27] MEDS: ERTAPENEM SODIUM 1 GM in SODIUM CHLORIDE 50 ML IVPB SCH (10:20)
[2021-12-27] MEDS: FINASTERIDE 5 MG TABLET (FP) PO SCH (10:21)
[2021-12-27] MEDS: MULTIVITAMINS (DAILY MVI) TABLET (FP) PO SCH (10:21)
[2021-12-27] MEDS: PANTOPRAZOLE 40 MG TABLET PO SCH (10:21)
[2021-12-27] MEDS: ASCORBIC ACID 500 MG TABLET (FP) PO SCH (10:21)
[2021-12-27] MEDS: BUDESONIDE/FORMETEROL FUMARATE 160/4.5 mcg INHALER IH SCH ×2 (10:32→22:03)
[2021-12-27] MEDS: ATORVASTATIN CA 20 MG TABLET (FP) PO SCH (22:03)
[2021-12-28] MEDS ORDERED: AMPICILLIN SODIUM 2 GM VIAL ONE ×6 (01:36→21:39)
[2021-12-28] MEDS ORDERED: SODIUM CHLORIDE 100 ML IVPB ONE ×6 (01:36→21:40)
[2021-12-28] MEDS: AMPICILLIN - 2 GM in SODIUM CHLORIDE 100 ML IVPB SCH ×6 (01:47→22:40)
[2021-12-28] MEDS: LEVOTHYROXINE NA 25 MCG TABLET (FP) PO SCH (06:16)
[2021-12-28] MEDS: ASCORBIC ACID 500 MG TABLET (FP) PO SCH (09:20)
[2021-12-28] MEDS: PANTOPRAZOLE 40 MG TABLET PO SCH (09:20)
[2021-12-28] MEDS: ERTAPENEM SODIUM 1 GM in SODIUM CHLORIDE 50 ML IVPB SCH (09:20)
[2021-12-28] MEDS: MULTIVITAMINS (DAILY MVI) TABLET (FP) PO SCH (09:20)
[2021-12-28] MEDS: FINASTERIDE 5 MG TABLET (FP) PO SCH (09:21)
[2021-12-28] MEDS: BUDESONIDE/FORMETEROL FUMARATE 160/4.5 mcg INHALER IH SCH ×2 (09:27→23:03)
[2021-12-28] MEDS ORDERED: FUROSEMIDE 20 MG TABLET (FP) PO ONE (09:35)
[2021-12-28] MEDS ORDERED: POTASSIUM CHLORIDE TABS 20 MEQ TABLET.ER (FP) PO ONE ×2 (09:35→20:00)
[2021-12-28] MEDS ORDERED: POTASSIUM CHLORIDE ORAL LIQUID 20 MEQ/15 ML PO ONE ×2 (10:30→20:39)
[2021-12-28] MEDS: ATORVASTATIN CA 20 MG TABLET (FP) PO SCH (23:03)
[2021-12-29] MEDS ORDERED: SODIUM CHLORIDE 100 ML IVPB ONE ×6 (00:37→20:58)
[2021-12-29] MEDS ORDERED: AMPICILLIN SODIUM 2 GM VIAL ONE ×6 (00:37→20:58)
[2021-12-29] MEDS: AMPICILLIN - 2 GM in SODIUM CHLORIDE 100 ML IVPB SCH ×6 (02:10→21:30)
[2021-12-29] MEDS: LEVOTHYROXINE NA 25 MCG TABLET (FP) PO SCH (06:09)
[2021-12-29 06:59] LABS: HEMATOCRIT 29.5 % (35.4-49); HEMOGLOBIN 9.7 GM/dL (11.7-16.9); MCH 29.8 pg (25.7-33.7); MCHC 32.7 g/dl (32.0-35.9); MEAN PLT VOLUME 8.5 fl (7.5-11.1); PLATELET COUNT 126 10^3/uL (134-434); RBC 3.24 M/mm3 (4.00-5.60); RDW 16.2 % (11.9-15.9); WHITE BLOOD COUNT 15.7 K/mm3 (4.0-10.0)
[2021-12-29 07:15] LABS: BLOOD UREA NITROGEN 11.8 mg/dL (7-18); CALCIUM 7.5 mg/dL (8.5-10.1); CREATININE 0.4 mg/dL (0.55-1.3)
[2021-12-29 07:16] LABS: ALBUMIN 1.4 g/dl (3.4-5.0); MAGNESIUM 2.4 mg/dL (1.8-2.4)
[2021-12-29 07:17] LABS: BILIRUBIN,TOTAL 0.4 mg/dL (0.2-1); TOT PROT 4.8 g/dl (6.4-8.2)
[2021-12-29] MEDS: FINASTERIDE 5 MG TABLET (FP) PO SCH (09:52)
[2021-12-29] MEDS: ERTAPENEM SODIUM 1 GM in SODIUM CHLORIDE 50 ML IVPB SCH (09:52)
[2021-12-29] MEDS: MULTIVITAMINS (DAILY MVI) TABLET (FP) PO SCH (09:52)
[2021-12-29] MEDS: PANTOPRAZOLE 40 MG TABLET PO SCH (09:52)
[2021-12-29] MEDS: ASCORBIC ACID 500 MG TABLET (FP) PO SCH (09:52)
[2021-12-29] MEDS: BUDESONIDE/FORMETEROL FUMARATE 160/4.5 mcg INHALER IH SCH ×2 (10:18→22:27)
[2021-12-29 11:42] LABS: ANISOCYTOSIS 0; MACROCYTOSIS 0
[2021-12-29] MEDS: ATORVASTATIN CA 20 MG TABLET (FP) PO SCH (22:26)
[2021-12-30] MEDS ORDERED: AMPICILLIN SODIUM 2 GM VIAL ONE ×6 (02:05→22:43)
[2021-12-30] MEDS ORDERED: SODIUM CHLORIDE 100 ML IVPB ONE ×6 (02:05→22:43)
[2021-12-30] MEDS: AMPICILLIN - 2 GM in SODIUM CHLORIDE 100 ML IVPB SCH ×6 (04:35→22:15)
[2021-12-30] MEDS: LEVOTHYROXINE NA 25 MCG TABLET (FP) PO SCH (07:20)
[2021-12-30] MEDS: ERTAPENEM SODIUM 1 GM in SODIUM CHLORIDE 50 ML IVPB SCH (10:12)
[2021-12-30] MEDS: MULTIVITAMINS (DAILY MVI) TABLET (FP) PO SCH (10:12)
[2021-12-30] MEDS: ASCORBIC ACID 500 MG TABLET (FP) PO SCH (10:12)
[2021-12-30] MEDS: FINASTERIDE 5 MG TABLET (FP) PO SCH (10:12)
[2021-12-30] MEDS: PANTOPRAZOLE 40 MG TABLET PO SCH (10:12)
[2021-12-30] MEDS: BUDESONIDE/FORMETEROL FUMARATE 160/4.5 mcg INHALER IH SCH ×2 (10:13→23:15)
[2021-12-30] MEDS: FUROSEMIDE 40 MG/4 ML INJECTABLE VIAL IVPUSH SCH ×2 (10:30→13:46)
[2021-12-30] MEDS: ALBUTEROL SO4 2.5/IPRATROPIUM 0.5 INH SOL 3 ML VIAL.NEB. NEB PRN ×2 (10:45→20:35)
[2021-12-30] MEDS: ALBUMIN HUMAN 25% 12.5 GM/50 ML VIAL IV SCH ×2 (11:42→23:12)
[2021-12-30] MEDS: ATORVASTATIN CA 20 MG TABLET (FP) PO SCH (22:45)
[2021-12-31] MEDS ORDERED: SODIUM CHLORIDE 100 ML IVPB ONE ×5 (00:37→20:21)
[2021-12-31] MEDS ORDERED: AMPICILLIN SODIUM 2 GM VIAL ONE ×8 (00:37→20:20)
[2021-12-31] MEDS: AMPICILLIN - 2 GM in SODIUM CHLORIDE 100 ML IVPB SCH ×6 (01:15→22:09)
[2021-12-31] MEDS: FUROSEMIDE 40 MG/4 ML INJECTABLE VIAL IVPUSH SCH ×2 (06:35→13:59)
[2021-12-31] MEDS: LEVOTHYROXINE NA 25 MCG TABLET (FP) PO SCH (06:36)
[2021-12-31] MEDS: ERTAPENEM SODIUM 1 GM in SODIUM CHLORIDE 50 ML IVPB SCH (09:55)
[2021-12-31] MEDS: FINASTERIDE 5 MG TABLET (FP) PO SCH (09:56)
[2021-12-31] MEDS: MULTIVITAMINS (DAILY MVI) TABLET (FP) PO SCH (09:56)
[2021-12-31] MEDS: PANTOPRAZOLE 40 MG TABLET PO SCH (09:56)
[2021-12-31] MEDS: ASCORBIC ACID 500 MG TABLET (FP) PO SCH (09:56)
[2021-12-31] MEDS: BUDESONIDE/FORMETEROL FUMARATE 160/4.5 mcg INHALER IH SCH ×2 (09:56→22:10)
[2021-12-31] MEDS: ALBUMIN HUMAN 25% 12.5 GM/50 ML VIAL IV SCH ×2 (12:21→22:06)
[2021-12-31] MEDS: ALBUTEROL SO4 2.5/IPRATROPIUM 0.5 INH SOL 3 ML VIAL.NEB. NEB PRN (17:40)
[2021-12-31] MEDS ORDERED: SODIUM CHLORIDE 250 ML IV STA (19:36)
[2021-12-31] MEDS: ATORVASTATIN CA 20 MG TABLET (FP) PO SCH (22:08)
[2022-01-01] MEDS: AMPICILLIN - 2 GM in SODIUM CHLORIDE 100 ML IVPB SCH ×6 (02:15→22:14)
[2022-01-01] MEDS ORDERED: AMPICILLIN SODIUM 2 GM VIAL ONE ×6 (04:09→22:08)
[2022-01-01] MEDS ORDERED: SODIUM CHLORIDE 100 ML IVPB ONE ×6 (04:09→22:08)
[2022-01-01] MEDS: FUROSEMIDE 40 MG/4 ML INJECTABLE VIAL IVPUSH SCH ×2 (06:31→14:39)
[2022-01-01] MEDS: LEVOTHYROXINE NA 25 MCG TABLET (FP) PO SCH (06:32)
[2022-01-01 08:06] LABS: HEMATOCRIT 26.7 % (35.4-49); HEMOGLOBIN 8.8 GM/dL (11.7-16.9); MCH 29.6 pg (25.7-33.7); MEAN CELL VOLUME 89.8 fl (80-96); PLATELET COUNT 120 10^3/uL (134-434); RBC 2.97 M/mm3 (4.00-5.60); RDW 16.2 % (11.9-15.9); WHITE BLOOD COUNT 16.1 K/mm3 (4.0-10.0)
[2022-01-01 08:10] LABS: BILIRUBIN,TOTAL 0.5 mg/dL (0.2-1); CREATININE 0.5 mg/dL (0.55-1.3)
[2022-01-01 08:11] LABS: TOT PROT 5.2 g/dl (6.4-8.2)
[2022-01-01 08:15] LABS: ALBUMIN 2.2 g/dl (3.4-5.0)
[2022-01-01 09:30] LABS: ANISOCYTOSIS 1+
[2022-01-01] MEDS: ERTAPENEM SODIUM 1 GM in SODIUM CHLORIDE 50 ML IVPB SCH (09:32)
[2022-01-01] MEDS: PANTOPRAZOLE 40 MG TABLET PO SCH (09:43)
[2022-01-01] MEDS: MULTIVITAMINS (DAILY MVI) TABLET (FP) PO SCH (09:43)
[2022-01-01] MEDS: ASCORBIC ACID 500 MG TABLET (FP) PO SCH (09:43)
[2022-01-01] MEDS: FINASTERIDE 5 MG TABLET (FP) PO SCH (09:44)
[2022-01-01] MEDS: BUDESONIDE/FORMETEROL FUMARATE 160/4.5 mcg INHALER IH SCH ×2 (09:45→22:14)
[2022-01-01] MEDS: ALBUMIN HUMAN 25% 12.5 GM/50 ML VIAL IV SCH ×2 (10:00→22:14)
[2022-01-01] MEDS: ATORVASTATIN CA 20 MG TABLET (FP) PO SCH (22:14)
[2022-01-02] MEDS: AMPICILLIN - 2 GM in SODIUM CHLORIDE 100 ML IVPB SCH ×6 (02:15→21:16)
[2022-01-02] MEDS ORDERED: AMPICILLIN SODIUM 2 GM VIAL ONE ×6 (04:21→20:38)
[2022-01-02] MEDS ORDERED: SODIUM CHLORIDE 100 ML IVPB ONE ×6 (04:22→20:38)
[2022-01-02] MEDS: FUROSEMIDE 40 MG/4 ML INJECTABLE VIAL IVPUSH SCH ×2 (06:46→13:31)
[2022-01-02] MEDS: LEVOTHYROXINE NA 25 MCG TABLET (FP) PO SCH (06:47)
[2022-01-02] MEDS ORDERED: DIGOXIN 0.5 MG/2 ML AMPUL ONE (09:07)
[2022-01-02] MEDS ORDERED: DIGOXIN 0.5 MG/2 ML AMPUL IVPUSH ONE (09:15)
[2022-01-02] MEDS: METOPROLOL TARTRATE 5 MG/5 ML VIAL IVPUSH PRN (09:26)
[2022-01-02] MEDS: FINASTERIDE 5 MG TABLET (FP) PO SCH (09:31)
[2022-01-02] MEDS: PANTOPRAZOLE 40 MG TABLET PO SCH (09:31)
[2022-01-02] MEDS: ASCORBIC ACID 500 MG TABLET (FP) PO SCH (09:31)
[2022-01-02] MEDS: BUDESONIDE/FORMETEROL FUMARATE 160/4.5 mcg INHALER IH SCH ×2 (09:31→21:16)
[2022-01-02] MEDS: MULTIVITAMINS (DAILY MVI) TABLET (FP) PO SCH (09:31)
[2022-01-02] MEDS: ERTAPENEM SODIUM 1 GM in SODIUM CHLORIDE 50 ML IVPB SCH (11:16)
[2022-01-02 15:35] LABS: CHLORIDE 96 mmol/L (98-107); SODIUM 141 mmol/L (136-145)
[2022-01-02 15:37] LABS: BLOOD UREA NITROGEN 17.5 mg/dL (7-18); CALCIUM 8.1 mg/dL (8.5-10.1); CO2 36 mmol/L (21-32); GLUCOSE,RANDOM 166 mg/dL (74-106); MAGNESIUM 2.3 mg/dL (1.8-2.4)
[2022-01-02 15:41] LABS: CREATININE 0.6 mg/dL (0.55-1.3); PHOSPHOROUS 2.8 mg/dL (2.5-4.9)
[2022-01-02 15:44] LABS: ANION GAP 8 MMOL/L (8-16)
[2022-01-02] MEDS ORDERED: POTASSIUM CHLORIDE TABS 10 MEQ TABLET.ER (FP) PO ONE (16:01)
[2022-01-02] MEDS: KCL 10 MEQ IVPB 10 MEQ/100 ML INFUS.BAG IVPB SCH ×3 (16:37→18:57)
[2022-01-02] MEDS: DIGOXIN 0.125 MG TABLET PO SCH (17:22)
[2022-01-02] MEDS: ALBUTEROL SO4 2.5/IPRATROPIUM 0.5 INH SOL 3 ML VIAL.NEB. NEB PRN (20:35)
[2022-01-02] MEDS: ATORVASTATIN CA 20 MG TABLET (FP) PO SCH (21:16)
[2022-01-03] MEDS: AMPICILLIN - 2 GM in SODIUM CHLORIDE 100 ML IVPB SCH ×6 (02:15→21:14)
[2022-01-03] MEDS: ALBUTEROL SO4 2.5/IPRATROPIUM 0.5 INH SOL 3 ML VIAL.NEB. NEB PRN (02:30)
[2022-01-03] MEDS ORDERED: AMPICILLIN SODIUM 2 GM VIAL ONE ×6 (03:54→21:09)
[2022-01-03] MEDS ORDERED: SODIUM CHLORIDE 100 ML IVPB ONE ×6 (03:54→21:09)
[2022-01-03] MEDS: LEVOTHYROXINE NA 25 MCG TABLET (FP) PO SCH (06:31)
[2022-01-03] MEDS: FUROSEMIDE 40 MG/4 ML INJECTABLE VIAL IVPUSH SCH ×2 (06:31→13:36)
[2022-01-03 07:20] LABS: HEMOGLOBIN 8.8 GM/dL (11.7-16.9); MCH 29.4 pg (25.7-33.7); MCHC 32.7 g/dl (32.0-35.9); MEAN CELL VOLUME 89.8 fl (80-96); MEAN PLT VOLUME 8.7 fl (7.5-11.1); PLATELET COUNT 130 10^3/uL (134-434); RBC 3.01 M/mm3 (4.00-5.60); RDW 16.3 % (11.9-15.9); WHITE BLOOD COUNT 17.1 K/mm3 (4.0-10.0)
[2022-01-03 07:40] LABS: CALCIUM 8.3 mg/dL (8.5-10.1)
[2022-01-03 07:41] LABS: ALBUMIN 2.3 g/dl (3.4-5.0); BLOOD UREA NITROGEN 20.7 mg/dL (7-18); MAGNESIUM 2.2 mg/dL (1.8-2.4)
[2022-01-03 07:44] LABS: CREATININE 0.6 mg/dL (0.55-1.3); PHOSPHOROUS 2.4 mg/dL (2.5-4.9)
[2022-01-03 07:45] LABS: BILIRUBIN,TOTAL 0.5 mg/dL (0.2-1); TOT PROT 5.4 g/dl (6.4-8.2)
[2022-01-03] MEDS: ERTAPENEM SODIUM 1 GM in SODIUM CHLORIDE 50 ML IVPB SCH (09:40)
[2022-01-03] MEDS: ASCORBIC ACID 500 MG TABLET (FP) PO SCH (09:40)
[2022-01-03] MEDS: POTASSIUM CHLORIDE TABS 20 MEQ TABLET.ER (FP) PO SCH (09:40)
[2022-01-03] MEDS: FINASTERIDE 5 MG TABLET (FP) PO SCH (09:41)
[2022-01-03] MEDS: DIGOXIN 0.125 MG TABLET PO SCH (09:41)
[2022-01-03] MEDS: BUDESONIDE/FORMETEROL FUMARATE 160/4.5 mcg INHALER IH SCH ×2 (09:41→21:14)
[2022-01-03] MEDS: methylPREDNISolone NA SUCC 40 MG/1 ML VIAL IVPUSH SCH ×3 (09:41→21:14)
[2022-01-03] MEDS: MULTIVITAMINS (DAILY MVI) TABLET (FP) PO SCH (09:41)
[2022-01-03] MEDS: PANTOPRAZOLE 40 MG TABLET PO SCH (09:41)
[2022-01-03 10:17] LABS: ANISOCYTOSIS 1+; MACROCYTOSIS 0
[2022-01-03 10:23] LABS: PLATELET ESTIMATE ADEQUATE
[2022-01-03] MEDS ORDERED: ALBUTEROL SO4 0.083% IH SOL 2.5 MG/3 ML VIAL.NEB. NEB PRN (10:48)
[2022-01-03] MEDS: NAPH,MB-DB/K PH,MBDB POWDER PACKET PO SCH ×2 (11:42→21:14)
[2022-01-03] MEDS: ALBUTEROL SO4 2.5/IPRATROPIUM 0.5 INH SOL 3 ML VIAL.NEB. NEB SCH ×3 (11:55→20:05)
[2022-01-03] MEDS ORDERED: PIPERACILLIN/TAZOBACTAM 4.5 GM VIAL IVPB ONE (17:01)
[2022-01-03] MEDS ORDERED: DEXTROSE 5%-WATER 100 ML IVPB ONE (17:02)
[2022-01-03] MEDS ORDERED: PIPERACILLIN/TAZOB 4.5 GM 4.5 GM in DEXTROSE 5%-WATER 100 ML IVPB SCH (18:00)
[2022-01-03] MEDS: ATORVASTATIN CA 20 MG TABLET (FP) PO SCH (21:14)
[2022-01-04] MEDS ORDERED: CEFEPIME HCL/D5W 1 GM/50 ML BAG IVPB SCH (02:00)
[2022-01-04] MEDS: AMPICILLIN - 2 GM in SODIUM CHLORIDE 100 ML IVPB SCH ×6 (02:29→21:15)
[2022-01-04] MEDS ORDERED: SODIUM CHLORIDE 100 ML IVPB ONE ×5 (03:27→15:49)
[2022-01-04] MEDS ORDERED: AMPICILLIN SODIUM 2 GM VIAL ONE ×5 (03:27→15:49)
[2022-01-04] MEDS: methylPREDNISolone NA SUCC 40 MG/1 ML VIAL IVPUSH SCH ×4 (03:29→21:02)
[2022-01-04] MEDS: FUROSEMIDE 40 MG/4 ML INJECTABLE VIAL IVPUSH SCH ×2 (06:28→13:43)
[2022-01-04] MEDS: LEVOTHYROXINE NA 25 MCG TABLET (FP) PO SCH (06:28)
[2022-01-04] MEDS: ALBUTEROL SO4 2.5/IPRATROPIUM 0.5 INH SOL 3 ML VIAL.NEB. NEB SCH ×4 (07:50→20:35)
[2022-01-04] MEDS ORDERED: DEXTROSE 5%-WATER 100 ML IVPB ONE ×3 (10:46→20:58)
[2022-01-04] MEDS ORDERED: CEFEPIME HCL 1 GM VIAL (RESTRICTED TO ID) ONE ×3 (10:46→20:57)
[2022-01-04] MEDS: CEFEPIME 1 GM in DEXTROSE 5%-WATER 100 ML IVPB SCH ×2 (10:48→17:30)
[2022-01-04] MEDS: POTASSIUM CHLORIDE TABS 20 MEQ TABLET.ER (FP) PO SCH (10:48)
[2022-01-04] MEDS: PANTOPRAZOLE 40 MG TABLET PO SCH (10:48)
[2022-01-04] MEDS: MULTIVITAMINS (DAILY MVI) TABLET (FP) PO SCH (10:49)
[2022-01-04] MEDS: ASCORBIC ACID 500 MG TABLET (FP) PO SCH (10:49)
[2022-01-04] MEDS: NAPH,MB-DB/K PH,MBDB POWDER PACKET PO SCH ×2 (10:50→21:02)
[2022-01-04] MEDS: BUDESONIDE/FORMETEROL FUMARATE 160/4.5 mcg INHALER IH SCH ×2 (10:50→21:02)
[2022-01-04] MEDS: FINASTERIDE 5 MG TABLET (FP) PO SCH (10:50)
[2022-01-04] MEDS: DIGOXIN 0.125 MG TABLET PO SCH (11:01)
[2022-01-04] MEDS: ATORVASTATIN CA 20 MG TABLET (FP) PO SCH (21:02)
[2022-01-04 23:59] VITALS: TEMP 97.8
[2022-01-05] MEDS ORDERED: CEFEPIME HCL 1 GM VIAL (RESTRICTED TO ID) ONE ×2 (00:55→06:20)
[2022-01-05] MEDS ORDERED: DEXTROSE 5%-WATER 100 ML IVPB ONE ×2 (00:55→06:20)
[2022-01-05] MEDS: CEFEPIME 1 GM in DEXTROSE 5%-WATER 100 ML IVPB SCH (01:03)
[2022-01-05] MEDS: AMPICILLIN - 2 GM in SODIUM CHLORIDE 100 ML IVPB SCH ×2 (01:16→06:21)
[2022-01-05] MEDS: methylPREDNISolone NA SUCC 40 MG/1 ML VIAL IVPUSH SCH (02:19)
[2022-01-05] MEDS: FUROSEMIDE 40 MG/4 ML INJECTABLE VIAL IVPUSH SCH (06:21)
[2022-01-05] MEDS: LEVOTHYROXINE NA 25 MCG TABLET (FP) PO SCH (06:21)
[2022-01-05 06:56] VITALS: PULSE 137
[2022-01-05] MEDS: METOPROLOL TARTRATE 5 MG/5 ML VIAL IVPUSH PRN (06:56)
[2022-01-05 07:30] LABS: HEMATOCRIT 34.7 % (35.4-49); MCH 28.6 pg (25.7-33.7); MCHC 31.6 g/dl (32.0-35.9); MEAN CELL VOLUME 90.5 fl (80-96); MEAN PLT VOLUME 8.8 fl (7.5-11.1); PLATELET COUNT 75 10^3/uL (134-434); RBC 3.83 M/mm3 (4.00-5.60); RDW 16.9 % (11.9-15.9)
[2022-01-05 07:34] LABS: WHITE BLOOD COUNT 31.9 K/mm3 (4.0-10.0)
[2022-01-05] MEDS ORDERED: EPINEPHrine 1:10,000 (P-F SYR) 1 MG/10 ML DISP.SYRIN ONE (07:54)
[2022-01-05 08:12] LABS: CALCIUM 8.4 mg/dL (8.5-10.1)
[2022-01-05 08:13] LABS: ALBUMIN 2.3 g/dl (3.4-5.0); BLOOD UREA NITROGEN 40.5 mg/dL (7-18); MAGNESIUM 2.5 mg/dL (1.8-2.4)
[2022-01-05 08:15] LABS: PHOSPHOROUS 4.2 mg/dL (2.5-4.9)
[2022-01-05 08:17] LABS: BILIRUBIN,TOTAL 1.1 mg/dL (0.2-1); TOT PROT 5.8 g/dl (6.4-8.2)
[2022-01-05 11:45] LABS: ANISOCYTOSIS 2+; MACROCYTOSIS 0; OVALOCYTE 2+; TEAR DROP CELLS 1+; TOXIC GRANULATION 3+
[2022-01-05 16:11] VITALS: BP 91/32
== END 2022-01-05 11:30 | disposition expired | DRG 177 ==
LOC: JER 18:26 → JERBED 20:47 → J4W 12-17 01:01 → J2W 12-19 20:13
PROVIDERS: ADMIT Internal Medicine; ATTEND Family Medicine
PROC: 30233N1 Transfusion of Nonautologous Red Blood Cells into Peripheral Vein, Percutaneous Approach (ICD-10-PCS; principal; 2021-12-16)
PROC: 5A12012 Performance of Cardiac Output, Single, Manual (ICD-10-PCS; 2022-01-05)
DX: J15.6 Pneumonia due to other Gram-negative bacteria (principal); J96.21 Acute and chronic respiratory failure with hypoxia; J44.1 Chronic obstructive pulmonary disease with (acute) exacerbation; Z16.21 Resistance to vancomycin; I47.1 Supraventricular tachycardia; E87.1 Hypo-osmolality and hyponatremia; R78.81 Bacteremia; J18.9 Pneumonia, unspecified organism; D64.9 Anemia, unspecified; K52.9 Noninfective gastroenteritis and colitis, unspecified; N40.0 Benign prostatic hyperplasia without lower urinary tract symptoms; E03.9 Hypothyroidism, unspecified; E87.6 Hypokalemia; E78.5 Hyperlipidemia, unspecified; I10 Essential (primary) hypertension; I48.0 Paroxysmal atrial fibrillation; D72.829 Elevated white blood cell count, unspecified; K21.9 Gastro-esophageal reflux disease without esophagitis; R33.9 Retention of urine, unspecified; K76.0 Fatty (change of) liver, not elsewhere classified; I46.9 Cardiac arrest, cause unspecified
CPT/HCPCS: 36415; 36430; 36511; 71045-TC-FY; 74177-TC; 80048; 80053; 81003; 82272; 82378; 82550; 82803; 83605; 83735; 83880; 84100; 84443; 84484; 85025; 85027; 85610; 85730; 86140; 86850; 86900; 86901; 86922; 87040; 87045; 87046; 87070; 87077; 87086; 87177; 87186; 87205; 87209; 87324; 87449; 87804; 87899; 93005; 93010; 93306-TC; 93970-TC; 94640; 94660; 97162-GP; 99285-25; C9803; G0480; P9038; P9047; P9058; Q9967; U0003; U0005